=== PATIENT | male | born 1950 | race Caucasian/White ===

== ENCOUNTER 2023-10-19 11:39 | Emergency (ER) | payer OTHER, SELFPAY ==
[2023-10-19 11:47] VITALS: BP 127/95
[2023-10-19 11:54] LABS: Glucose - Point of Care > 600 mg/dl (70-99)
[2023-10-19 12:20] VITALS: BMI 28.1
[2023-10-19 12:21] VITALS: BP 189/50
[2023-10-19 12:30] LABS: pH - Venous 7.35 (7.32-7.43)
[2023-10-19 12:31] LABS: % Basophils 1.2 % (0-2); % Eosinophils 3.3 % (0-6); % Immature Granulocytes 0.3 % (0-0.5); % Lymphocytes 17.3 % (20.5-51.1); % Monocytes 7.6 % (1.7-9.3); % Neutrophils 70.3 % (42.2-75.2); Absolute Basophils 0.1 10^3/uL (0-0.2); Absolute Eosinophils 0.2 10^3/uL (0-0.7); Absolute Lymphocytes 1.2 10^3/uL (1.2-3.4); Absolute Monocytes 0.5 10^3/uL (0.1-0.6); Absolute Neutrophils 4.8 10^3/uL (1.4-6.5); Hematocrit 39.1 % (39.0-52.0); Hemoglobin 13.5 g/dL (13.0-18.0); Mean Corp Hgb Conc. 34.5 g/dL (33.0-37.0); Mean Corpuscular Hgb 29.6 pg (27.0-31.0); Mean Corpuscular Volume 85.7 fL (80.0-94.0); Mean Platelet Volume 12.6 fL (7.4-10.4); Nucleated Red Blood Cells % 0 % (-); Platelet Count 158 10^3/uL (130-400); Red Blood Cell Count 4.56 10^6/uL (4.70-6.10); Red Cell Dist. Width 12.5 % (11.5-14.5); White Blood Cell Count 6.8 10^3/uL (4.8-10.8)
[2023-10-19] MEDS: NSS 1000 IV (12:40)
[2023-10-19 13:00] VITALS: BP 186/67
[2023-10-19 13:29] LABS: ALT (SGPT) 22 U/L (0-50); AST (SGOT) 22 U/L (17-59); Alkaline Phosphatase 81 U/L (38-126); Blood Urea Nitrogen 28 mg/dl (9-20); Calcium 9.6 mg/dl (8.4-10.2); Carbon Dioxide 27 mmol/L (22-30); Chloride 98 mmol/L (98-107); Estimated Creatinine Clearance 71 ml/min; Potassium 5.3 mmol/L (3.5-5.1); Sodium 133 mmol/L (135-145); Total Bilirubin 0.8 mg/dl (0.2-1.3); Total Protein 6.6 g/dl (6.3-8.2); eGFR > 60.00
[2023-10-19 13:40] LABS: Glucose - Point of Care 580 mg/dl (70-99)
[2023-10-19 13:40] LABS: Glucose 678 mg/dl (70-99)
[2023-10-19 13:43] LABS: Urine Albumin Negative (Neg - Trace); Urine Bilirubin Negative (Negative); Urine Character Clear (Clear); Urine Color Yellow; Urine Glucose 3+ (Negative); Urine Ketone Negative (Negative); Urine Leukocyte Negative (Negative); Urine Nitrite Negative (Negative); Urine Occult Blood Negative (Negative); Urine Specific Gravity 1.005 (<1.030); Urine Urobilinogen Negative (Neg - 1+)
[2023-10-19] MEDS: NOVOLOG vial 15 UNITS SC (13:51)
[2023-10-19 14:00] VITALS: BP 199/64
[2023-10-19 14:21] LABS: Glucose 622 mg/dl (70-99)
--- NOTE | 2023-10-19 14:39 | EDRN ---
MM aware that glucose of 622 was drawn just prior to insulin admin
--- NOTE | 2023-10-19 14:52 | ED.GENMED ---
History of Present Illness
General
Chief Complaint: Blood Sugar Problem
Source: patient
Time Seen by Provider: 10/19/23 12:37
History of Present Illness
History of Present Illness:
73-year-old male with past medical history of hypertension, hyperlipidemia, CAD, insulin-dependent diabetes presenting to the emergency department for evaluation of significantly elevated blood sugars over the last few days due to his primary care
provider accidentally mixing up his insulin and patient ran out of the insulin prior to being able to get his new prescription. Patient endorses urinary frequency but is otherwise denying any abdominal pain, fevers, vomiting, bowel changes, recent
illnesses or any other concerns. Patient states he had blood work done not long ago and had an A1c checked but does not remember these results but when asked if he remembers if he was told it was good or bad patient states that they told him there
was 'room for improvement'. Patient states that he is on both short and long-acting insulin and that for some reason he had his Lantus changed which she was not sure why is he states he felt he was doing well with the Lantus. Patient has no other
concerns at this time.
Past History
Past History
ED Past Medical History: CAD, GERD, HTN, Hypercholesterolemia and IDDM
ED Past Surgical History: Cardiac (Cardiac stents)
Social History
Tobacco: Non-smoker
Alcohol: None
Drug: None
Personal: Single
Living: with family
Employment: Retired
Review of Systems
Review of Systems
All Other Systems: ROS reviewed and negative except as documented in HPI and ROS
Phy Exam
Physical Exam
Physical Exam:
GENERAL: Alert , in no apparent distress
EYE: conjunctiva clear
NECK: Supple
ENT: o/p clr, mmm.
CARDIAC: Regular rate and rhythm
LUNGS: Clear breath sounds bilaterally, no acute respiratory distress, no wheezes/rales/rhonchi
NEUROLOGICAL: Alert and oriented
SKIN: Warm and dry, skin intact.
MUSCULOSKELETAL: well perfused.
PSYCH: Normal and appropriate interaction.
Scores
Heart Failure Risk
Heart Failure Risk Score: Not Applicable
Heart Score for Chest Pain Patients
STEMI patient?: Not applicable
Withdrawal Assessment of Alcohol
Withdrawal Assessment Completed?: Not applicable
Course
Orders/Labs/Results
Orders:
Orders
10/19/23 12:18
CMP [Comprehensive Metabolic Panel] Urgent
Complete Blood Count/With Diff Urgent
pH - Venous Urgent
10/19/23 12:37
0.9% Sodium Chloride 1000 ml [Nss] 1,000 ml IV BOLUS
10/19/23 13:37
Urinalysis Reflex To Culture Urgent
Date Specimen was Collected: 10/19/23
Time Specimen was Collected: 13:36
10/19/23 13:43
Bedside Glucose- Treatment ONCE
Insulin Aspart [NOVOLOG vial] 15 units SC NOW STA
10/19/23 13:44
Glucose Urgent
10/19/23 15:09
Diabetes Education Consult Routine
Reason for Consult: Insulin Instruction
Newly Diagnosed?: No
Glucose Urgent
Abnormal Lab Results
10/19/23 10/19/23 10/19/23
11:52 12:18 13:37
RBC 4.56 L 10^6/uL
(4.70-6.10)
MPV 12.6 H fL
(7.4-10.4)
Lymphocytes % 17.3 L %
(20.5-51.1)
Sodium 133 L mmol/L
(135-145)
Potassium 5.3 H mmol/L
(3.5-5.1)
BUN 28 H mg/dl
(9-20)
Glucose 678 H* mg/dl
(70-99)
Urine Glucose 3+ A
(Negative)
POC Glucose > 600 H* mg/dl
(70-99)
10/19/23 10/19/23 10/19/23
13:39 13:44 14:52
RBC
MPV
Lymphocytes %
Sodium
Potassium
BUN
Glucose 622 H* mg/dl
(99)
Urine Glucose
POC Glucose 580 H* mg/dl 589 H* mg/dl
(99) (70-99)
10/19/23
15:09
RBC
MPV
Lymphocytes %
Sodium
Potassium
BUN
Glucose 414 H mg/dl
()
Urine Glucose
POC Glucose
10/19/23 12:18
10/19/23 15:09
Vital Signs
Initial and Last Documented VS:
Initial Vital Signs
Temp Pulse Resp BP Pulse Ox
98.0 F 59 16 127/95 98
10/19/23 11:47 10/19/23 11:47 10/19/23 11:47 10/19/23 11:47 10/19/23 11:47
Last Documented Vital Signs
Temp Pulse Resp BP Pulse Ox
98.0 F 59 16 199/64 99
10/19/23 11:47 10/19/23 11:47 10/19/23 11:47 10/19/23 14:00 10/19/23 16:00
Magnetic Testing Technician consulted with Physician
Magnetic Testing Technician consulted with physician?: Yes
Name of Physician Consulted: Lester
MDM/Problems Addressed
Differential Diagnosis Includes:
Hyperglycemia secondary to medication noncompliance, DKA, HHNK
MDM/Problems Addressed:
73-year-old male presenting emergency department for evaluation of hyperglycemia. Patient reports he believes this is due to his primary care provider mixing up his insulin prescriptions. Patient does report that his primary care provider was
supposedly working on this new prescription ensuring patient had his insulin at the pharmacy today. I will contact the pharmacy to ensure that patient has this medication available. In the meantime patient had a fingerstick glucose of greater than
600. Fluids were initiated. Once labs resulted will start patient on insulin. Reassessment following
Chronic conditions affecting care: DM
Acute Exacerbation and/or Progression of Chronic Illness: DM
*Pulse Oximetry
Patient hypoxic: no
*Critical Care Note
Total Time (30-74mins, 75-104mins- exclusive of procedures): Not Applicable
Data Reviewed
Review of Other/Old Records Reveals: Labs
Source: patient and records
Patient Management
Discussion with other providers: PCP and [facility] Maker
Escalation/DeEscalation of care consider admission/obs:
Patient's blood glucose came back at 678. He has already completed 2 L of fluids. Will repeat a fingerstick prior to ordering insulin.
Fingerstick glucose still came back reading 'high'. Based off insulin scale, 15 units of regular insulin ordered subcutaneously. Will repeat glucose around an hour after initial administration.
Patient's repeat glucose down trended to 414. He was seen by our diabetes educators and he declined nutrition consultation. I contacted his pharmacy who states they do not have Lantus in stock but they do have patients insulin needles ready for
him to be picked up. In consultation with our diabetes team we decided to increase patient's Lantus from 60 units once daily to 40 units twice daily and I was able to confirm with the [facility] on [facility] that they do have a full 1 month supply in
stock. Patient was notified of this change. I also notified patient's primary care provider of his workup in the emergency department in order to help facilitate close outpatient follow-up. Patient is otherwise stable for discharge.
ED Attending Note
-
Portions of this chart may have been created with voice recognition software.� Occasional wrong word or��sound alike� substitutions may have occurred due to the inherent limitations of voice recognition software.
Discharge Plan
Departure
Patient Disposition: Home (Routine Discharge)
Date of Disposition: 10/19/23
Time of Disposition: 15:53
Patient with high blood pressure during this ER visit?: Yes
Discharge Problem:
Diabetes mellitus with hyperglycemia, History of medication noncompliance
Instructions: Type 2 Diabetes (DC)
Prescriptions:
New
insulin glargine [Lantus Solostar U-100 Insulin] 100 unit/mL (3 mL) insulin pen
40 unit SC BID 30 Days Qty: 24 0RF
Referrals:
Mervin Ames MD [Family Provider] -
Interventions
Interventions:
*Risk Screen - Suicide Last Done: 10/19/23 12:20
*General Assessment Last Done: 10/19/23 16:14
*Neglect/Abuse Screening Last Done: 10/19/23 12:20
ED- Fall Risk Assessment Last Done: 10/19/23 13:16
*ED COVID-19 Vaccine History Last Done: 10/19/23 11:47
*Nursing Disposition Last Done: 10/19/23 16:14
ED- Neurological Assessment Last Done: 10/19/23 12:20
Discharge Date and Time
Discharge Date/Time: 10/19/23 16:15
Print Language: TONGAN
[2023-10-19 14:54] LABS: Glucose - Point of Care 589 mg/dl (70-99)
[2023-10-19 15:30] LABS: Glucose 414 mg/dl (70-99)
--- NOTE | 2023-10-19 15:52 | PN.DE ---
Diabetes Education
- -
10/19/2023: Diabetes Education Consult
73 year old male with PMH: HTN, HLD, CAD, IDDM. Presented to the ED for evaluation of significantly elevated blood sugars over the last few day due to apparently his PCP accidentally mixing up his insulin and patient ran out of the insulin prior to
being able to get his new prescription.
Consult placed for insulin instructions, however, pt reports that he has been taking insulin for a long time and that he is comfortable with self adm of insulin injections via pen. Pt states that his main problem is not knowing what foods to eat and
that he is exhausted with diabetes diet, although he states that he mainly eats hoagies, pizza, subs and taco schumacher.
DSME classes were offered and pt declined information at this time but was willing to receive information on class at home and will think about registering.
Update given to pt's ED team.
== END 2023-10-19 16:15 | disposition home or self-care (01) ==
LOC: EMR 11:39
PROVIDERS: Physician Assistant Medical; EMERGENCY PHYSICIAN Emergency Medicine; FAMILY PHYSICIAN Internal Medicine
DX: E11.65 Type 2 diabetes mellitus with hyperglycemia (principal); Z91.148 Patient's other noncompliance with medication regimen for other reason; I10 Essential (primary) hypertension; E78.00 Pure hypercholesterolemia, unspecified; I25.10 Atherosclerotic heart disease of native coronary artery without angina pectoris
CPT/HCPCS: 99284; 96360; 96372; 80053; 81003; 82800; 82947; 82962; 85025

== ENCOUNTER 2024-07-12 15:04 | Emergency (ER) | payer OTHER, SELFPAY ==
[2024-07-12 15:06] VITALS: BP 180/84
--- NOTE | 2024-07-12 15:42 | ED.SKININJ ---
HPI-Injury
General
Chief Complaint: Skin Surface Trauma
Source: patient
Exam Limitations: none
Time Seen by Provider: 07/12/24 15:20
Nursing documentation reviewed up to this point in time: agreed with
History of Present Illness-Injury
Is this injury a work related problem?: No
Is pt an associate of [facility]/[place]?: No
Initial Injury comments:
Accidentally cut finger on tin can lid. Has small laceration to right distal lateral 4th finger. 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
Past History
Past History
ED Past Medical History: CAD, GERD, HTN, Hypercholesterolemia and IDDM
ED Past Surgical History: Cardiac (Cardiac stents)
Social History
Tobacco: Non-smoker
Alcohol: None
Drug: None
Personal: Single
Living: with family
Employment: Retired
Review of Systems
Review of Systems
Allergies reviewed?: Yes
All Other Systems: ROS reviewed and negative except as documented in HPI and ROS
Constitutional: Reports no symptoms
Musculoskeletal: Reports no symptoms
Skin: Reports other (laceration to right distal lateral 4th finger)
Neurological: Reports no symptoms
Psychiatric: Reports no symptoms
Skin Exam
Laceration
Right Lateral Distal Fourth Finger:
Length in cm: 1
Orientation: vertical
Type of Laceration: simple
Any active bleeding?: no active bleeding
Distal skin color and temperature: normal-warm & good color
Normal distal neurovascular exam: Yes
Range of motion: full
Phy Exam
General Physical Exam
General Presentation: well appearing and no apparent distress
General age: appears stated age
General Skin: warm and dry
General Habitus: normal
General Mental: alert
Musculoskeletal Exam
Musculoskeletal Exam: full ROM
Skin Exam
Skin Exam: normal color, warm/dry and no rash
Psychiatric Exam
Psychiatric Exam: normal mood/affect
Course
Vital Signs
Initial and Last Documented VS:
Initial Vital Signs
Temp Pulse Resp BP Pulse Ox
98.5 F 79 20 180/84 98
07/12/24 15:06 07/12/24 15:06 07/12/24 15:06 07/12/24 15:06 07/12/24 15:06
Last Documented Vital Signs
Temp Pulse Resp BP Pulse Ox
98.5 F 79 20 180/84 98
07/12/24 15:06 07/12/24 15:06 07/12/24 15:06 07/12/24 15:06 07/12/24 15:06
Procedures
Laceration Closure
Lateral Distal Fourth Finger:
Status of Wound: clean
Description of Wound Edges: sharp
Preparation: cleaned with soap & water and cleaned with Betadine
Revision/Debridement: routine- no revision
Wound exploration: explored to base- no FB
Type of Closure: Dermabond-skin glue
*Critical Care Note
Total Time (30-74mins, 75-104mins- exclusive of procedures): Not Applicable
ED Attending Note
-
Portions of this chart may have been created with voice recognition software.� Occasional wrong word or��sound alike� substitutions may have occurred due to the inherent limitations of voice recognition software.
Discharge Plan
Departure
Patient Disposition: Home (Routine Discharge)
Date of Disposition: 07/12/24
Time of Disposition: 15:41
Patient with high blood pressure during this ER visit?: No
Condition: Good
Covid-19: Not Applicable
Discharge Problem:
Finger laceration
Instructions: Laceration Repair With Glue (DC)
Prescriptions:
No Action
insulin glargine [Lantus Solostar U-100 Insulin] 100 unit/mL (3 mL) insulin pen
40 unit SC BID 30 Days Qty: 24 0RF
Referrals:
Mervin Ames MD [Family Provider] -
Activity Restrictions/Additional Instructions:
Keep wound dry for 24 hours. Do not remove tape strips
Interventions
Interventions:
*Risk Screen - Suicide Last Done: 07/12/24 15:06
*General Assessment Last Done: 07/12/24 15:06
*Neglect/Abuse Screening Last Done: 07/12/24 15:06
Discharge Date and Time
Print Language: SPANISH
== END 2024-07-12 16:07 | disposition home or self-care (01) ==
LOC: EMR 15:04
PROVIDERS: EMERGENCY PHYSICIAN Emergency Medicine; FAMILY PHYSICIAN Internal Medicine
DX: S61.215A Laceration without foreign body of left ring finger without damage to nail, initial encounter (principal); W26.8XXA Contact with other sharp object(s), not elsewhere classified, initial encounter; I25.10 Atherosclerotic heart disease of native coronary artery without angina pectoris; E11.9 Type 2 diabetes mellitus without complications; I10 Essential (primary) hypertension; E78.00 Pure hypercholesterolemia, unspecified; Z79.4 Long term (current) use of insulin; Z95.5 Presence of coronary angioplasty implant and graft
CPT/HCPCS: 12001; 99282

== ENCOUNTER 2024-09-27 13:27 | Emergency (ER) | payer SELFPAY ==
[2024-09-27 13:32] VITALS: BP 154/63
[2024-09-27 14:18] LABS: % Basophils 0.6 % (0-2); % Eosinophils 1.4 % (0-6); % Immature Granulocytes 0.2 % (0-0.5); % Lymphocytes 16.9 % (20.5-51.1); % Monocytes 5.8 % (1.7-9.3); % Neutrophils 75.1 % (42.2-75.2); Absolute Basophils 0.1 10^3/uL (0-0.2); Absolute Eosinophils 0.1 10^3/uL (0-0.7); Absolute Lymphocytes 1.5 10^3/uL (1.2-3.4); Absolute Monocytes 0.5 10^3/uL (0.1-0.6); Absolute Neutrophils 6.7 10^3/uL (1.4-6.5); Hematocrit 40.6 % (39.0-52.0); Hemoglobin 14.3 g/dL (13.0-18.0); Mean Corp Hgb Conc. 35.2 g/dL (33.0-37.0); Mean Corpuscular Hgb 29.2 pg (27.0-31.0); Nucleated Red Blood Cells % 0 % (-); Platelet Count 252 10^3/uL (130-400); Red Blood Cell Count 4.89 10^6/uL (4.70-6.10); Red Cell Dist. Width 12.5 % (11.5-14.5)
[2024-09-27 14:22] LABS: INR 1.09; PT 14.4 Sec (11.4-14.6)
[2024-09-27 14:34] LABS: ALT (SGPT) 17 U/L (0-50); AST (SGOT) 18 U/L (17-59); Albumin 4.3 g/dl (3.5-5.0); Alkaline Phosphatase 88 U/L (38-126); Blood Urea Nitrogen 53 mg/dl (9-20); Calcium 9.9 mg/dl (8.4-10.2); Carbon Dioxide 22 mmol/L (22-30); Chloride 101 mmol/L (98-107); Potassium 5.9 mmol/L (3.5-5.1); Sodium 133 mmol/L (135-145); Total Bilirubin 0.6 mg/dl (0.2-1.3); Total Protein 7.2 g/dl (6.3-8.2); eGFR 45.21
[2024-09-27 14:56] LABS: Glucose 646 mg/dl (70-99)
[2024-09-27 16:08] VITALS: BP 170/72
--- NOTE | 2024-09-27 16:33 | ED.GENMED ---
History of Present Illness
General
Chief Complaint: Weakness
Source: patient
Exam Limitations: none
Time Seen by Provider: 09/27/24 15:59
Nursing documentation reviewed up to this point in time: agreed with
History of Present Illness
History of Present Illness:
Patient to ED with complaint of lower extremity weakness. States he has not had his insulin for the past month due to finances. He started taking his prescribed dose 3 days ago but then states he forgot to take his insulin and ozempic today.
States his legs gave out this AM and he fell. Denies hitting his head. Brought self to ED for eval. He denies fever/chills, recent illness. No n/v/d. Reports intermittent lower chest tightness over the past few weeks. Denies any SOB.
Past History
Past History
ED Past Medical History: CAD, GERD, HTN, Hypercholesterolemia and IDDM
ED Past Surgical History: Cardiac (Cardiac stents)
Social History
Tobacco: Non-smoker
Alcohol: None
Drug: None
Personal: Single
Living: with family
Employment: Retired
Review of Systems
Review of Systems
Allergies reviewed?: Yes
All Other Systems: ROS reviewed and negative except as documented in HPI and ROS
Constitutional: Reports no symptoms
EENT: Reports no symptoms
Respiratory: Reports no symptoms
Cardiac: Reports other (intermittent chest tightness)
ABD/GI: Reports no symptoms
: Reports no symptoms
Musculoskeletal: Reports no symptoms
Skin: Reports no symptoms
Neurological: Reports weakness
Psychiatric: Reports no symptoms
Phy Exam
General Physical Exam
General Presentation: well appearing and no apparent distress
General age: appears stated age
General Skin: warm and dry
General Habitus: normal
General Mental: alert
General Hydration: appears well hydrated
Cardiovascular Exam
Cardiovascular Exam: regular rate/rhythm and no edema
Pulmonary Exam
Pulmonary Exam: lungs clear and no respiratory distress
Gastrointestinal Exam
Gastrointestinal Exam: normal bowel sounds and non tender
Neurological Exam
Neurological Exam: alert, oriented x3, CN II-XII intact, no motor deficits, no sensory deficits and speech normal
Musculoskeletal Exam
Musculoskeletal Exam: full ROM and neuro vasc intact
Skin Exam
Skin Exam: normal color and no rash
Psychiatric Exam
Psychiatric Exam: normal mood/affect
Course
Orders/Labs/Results
Orders:
Orders
09/27/24 13:36
Electrocardiogram (*1) Urgent
Reason for Study: Other
Other Reason for Exam: Possible Stroke
EKG- Treatment ONCE
09/27/24 13:37
CT Head W/o Iv Contrast Urgent
Comment:
Reason For Exam: R leg numbness/weakness
09/27/24 13:58
Complete Blood Count/With Diff Urgent
Comprehensive Metabolic Panel Urgent
PTT Urgent
Prothrombin Time Urgent
Troponin I Urgent
09/27/24 16:31
0.9% Sodium Chloride 500 ml [Nss] 500 ml IV BOLUS
Insulin Aspart [NOVOLOG vial] 10 units SC NOW STA
09/27/24 19:02
Basic Metabolic Panel Urgent
Abnormal Lab Results
09/27/24 09/27/24
13:58 19:02
MPV 13.0 H fL
(7.4-10.4)
Absolute Neuts (auto) 6.7 H 10^3/uL
(1.4-6.5)
Lymphocytes % 16.9 L %
(20.5-51.1)
Sodium 133 L mmol/L
(135-145)
Potassium 5.9 H mmol/L
(3.5-5.1)
Chloride 108 H mmol/L
(98-107)
Carbon Dioxide 21 L mmol/L
(22-30)
BUN 53 H mg/dl 48 H mg/dl
(9-20) (9-20)
Creatinine 1.6 H mg/dL
(0.7-1.3)
Glucose 646 H* mg/dl 375 H mg/dl
(70-99) (70-99)
09/27/24 13:58
09/27/24 19:02
Vital Signs
Initial and Last Documented VS:
Initial Vital Signs
Temp Pulse Resp BP Pulse Ox
97.9 F 83 18 154/63 98
09/27/24 13:32 09/27/24 13:32 09/27/24 13:32 09/27/24 13:32 09/27/24 13:32
Last Documented Vital Signs
Temp Pulse Resp BP Pulse Ox
97.8 F 54 16 197/76 98
09/27/24 19:53 09/27/24 19:53 09/27/24 19:53 09/27/24 19:53 09/27/24 19:53
*Critical Care Note
Total Time (30-74mins, 75-104mins- exclusive of procedures): Not Applicable
Update Note
Update Note:
Patient to ED with complaint of weakness. States symptoms have been present for a while but could not be more specific. He also notes he had not taken his insulin for 'awhile' due to finances. Restarted his insulin 3 days ago but forgot to take
insulin today. Labs reviewed. BS of >600 noted. K 5.9. He was given 1L NSS and 10 units novolog. repeat labs show BS now mid 300''s and K is 4.8. I spoke with him about the need for admission but he declined. States now that he knows what is
wrong with him he will fix it. States he will follow up with PCP tomorrow. I have concerns that he will not follow up and that he is unreliable with his medications at home. I spoke with him about this but he continues to decline admission. He
was given instructions on s/s to return to [facility] as well as the importance of medication compliance. He verbalizes agreement to plan.
ED Attending Note
-
Portions of this chart may have been created with voice recognition software.� Occasional wrong word or��sound alike� substitutions may have occurred due to the inherent limitations of voice recognition software.
Discharge Plan
Departure
Patient Disposition: Home (Routine Discharge)
Date of Disposition: 09/27/24
Time of Disposition: 19:27
Patient with high blood pressure during this ER visit?: No
Condition: Good
Covid-19: Not Applicable
Discharge Problem:
Hyperglycemia, Weakness
Instructions: Generalized Weakness (DC), High blood sugar in adults - ED discharge instructions
Prescriptions:
No Action
insulin glargine [Lantus Solostar U-100 Insulin] 100 unit/mL (3 mL) insulin pen
40 unit SC BID 30 Days Qty: 24 0RF
Referrals:
Mervin Ames MD [Family Provider, Internal Medicine] - Tomorrow
Activity Restrictions/Additional Instructions:
Return to the emergency department immediately for any changes in your symptoms.
Interventions
Interventions:
*Risk Screen - Suicide Last Done: 09/27/24 13:32
*General Assessment Last Done: 09/27/24 13:32
*Neglect/Abuse Screening Last Done: 09/27/24 19:51
*ED- Fall Risk Assessment Last Done: 09/27/24 19:51
*ED COVID-19 Vaccine History Last Done: 09/27/24 19:51
*Nursing Disposition Last Done: 09/27/24 19:53
ED- Cardiac Assessment Last Done: 09/27/24 17:53
ED- Neurological Assessment Last Done: 09/27/24 17:53
ED- Pulmonary Assessment Last Done: 09/27/24 17:53
Discharge Date and Time
Discharge Date/Time: 09/27/24 19:54
Print Language: CAMBODIAN
[2024-09-27] MEDS: NOVOLOG vial 10 UNITS SC (16:43)
[2024-09-27] MEDS: NSS 500 IV (16:46)
[2024-09-27 17:12] VITALS: BP 140/77
[2024-09-27 18:00] VITALS: BP 162/61
[2024-09-27 19:00] VITALS: BP 197/76
[2024-09-27 19:24] LABS: Blood Urea Nitrogen 48 mg/dl (9-20); Calcium 9.5 mg/dl (8.4-10.2); Carbon Dioxide 21 mmol/L (22-30); Chloride 108 mmol/L (98-107); Glucose 375 mg/dl (70-99); Potassium 4.8 mmol/L (3.5-5.1); Sodium 137 mmol/L (135-145); eGFR 58.01
[2024-09-27 19:53] VITALS: BP 197/76
== END 2024-09-27 19:54 | disposition home or self-care (01) ==
LOC: EMR 13:27
PROVIDERS: Emergency Medicine; Nurse Practitioner; EMERGENCY PHYSICIAN Student in an Organized Health Care Education/Training Program; FAMILY PHYSICIAN Internal Medicine
DX: E11.65 Type 2 diabetes mellitus with hyperglycemia (principal); R53.1 Weakness; E78.00 Pure hypercholesterolemia, unspecified; I10 Essential (primary) hypertension; I25.10 Atherosclerotic heart disease of native coronary artery without angina pectoris; Z79.4 Long term (current) use of insulin; Z95.5 Presence of coronary angioplasty implant and graft
CPT/HCPCS: 96372; 96360; 99284; 70450; 80048; 80053; 84484; 85025; 85610; 85730; 93005

== ENCOUNTER 2024-10-03 07:45 | Inpatient (IN) | payer OTHER, SELFPAY ==
[2024-10-01 21:01] VITALS: BP 139/66
[2024-10-01 21:18] VITALS: BP 111/94
[2024-10-01 21:30] VITALS: BMI 27.4
[2024-10-01 21:38] LABS: Glucose - Point of Care 284 mg/dl (70-99)
[2024-10-01 21:41] LABS: % Basophils 0.6 % (0-2); % Eosinophils 0.8 % (0-6); % Immature Granulocytes 0.3 % (0-0.5); % Lymphocytes 15.9 % (20.5-51.1); % Monocytes 6.8 % (1.7-9.3); % Neutrophils 75.6 % (42.2-75.2); Absolute Basophils 0.1 10^3/uL (0-0.2); Absolute Eosinophils 0.1 10^3/uL (0-0.7); Absolute Lymphocytes 1.8 10^3/uL (1.2-3.4); Absolute Monocytes 0.8 10^3/uL (0.1-0.6); Absolute Neutrophils 8.6 10^3/uL (1.4-6.5); Hematocrit 38.4 % (39.0-52.0); Hemoglobin 13.4 g/dL (13.0-18.0); Mean Corp Hgb Conc. 34.9 g/dL (33.0-37.0); Mean Corpuscular Hgb 29.8 pg (27.0-31.0); Mean Corpuscular Volume 85.3 fL (80.0-94.0); Mean Platelet Volume 12.9 fL (7.4-10.4); Nucleated Red Blood Cells % 0 % (-); Platelet Count 218 10^3/uL (130-400); Red Cell Dist. Width 12.6 % (11.5-14.5); White Blood Cell Count 11.4 10^3/uL (4.8-10.8)
[2024-10-01 21:55] LABS: APTT 24.3 Sec (23.4-35.0); INR 1.18; PT 15.3 Sec (11.4-14.6)
[2024-10-01 21:57] LABS: Blood Urea Nitrogen 32 mg/dl (9-20); Calcium 9.4 mg/dl (8.4-10.2); Carbon Dioxide 23 mmol/L (22-30); Chloride 108 mmol/L (98-107); Estimated Creatinine Clearance 47 ml/min; Glucose 274 mg/dl (70-99); Sodium 137 mmol/L (135-145); eGFR 48.85
[2024-10-01 22:00] VITALS: BP 125/56
--- NOTE | 2024-10-01 22:26 | ED.GENMED ---
History of Present Illness
General
Chief Complaint: Weakness
Source: patient
Exam Limitations: none
Time Seen by Provider: 10/01/24 21:57
Nursing documentation reviewed up to this point in time: agreed with
History of Present Illness
History of Present Illness:
Patient is a 74-year-old male with history of CAD ,stents (2012) ,hypertension hyperlipidemia presents to the ER for evaluation. Patient does not feel like himself today. He reports he had intermittent numbness of his arms and legs both sides and
then was having difficulty remembering things and felt little unsteady on his feet.
In review of records patient was seen here 4 days ago for hyperglycemia. It was documented that patient had not taken his insulin for a while however did restart it but presented here with a sugar greater than 600. He does report that he is since
taking his medicines as previously prescribed.
Past History
Past History
ED Past Medical History: CAD, GERD, HTN, Hypercholesterolemia and IDDM
ED Past Surgical History: Cardiac (Cardiac stents)
Social History
Tobacco: Non-smoker
Alcohol: None
Drug: None
Personal: Single
Living: with family
Employment: Retired
Review of Systems
Review of Systems
Allergies reviewed?: Yes
All Other Systems: ROS reviewed and negative except as documented in HPI and ROS
Constitutional: Reports no symptoms
EENT: Reports no symptoms
Respiratory: Reports no symptoms
: Reports no symptoms
Musculoskeletal: Reports no symptoms
Skin: Reports no symptoms
Neurological: Reports other (numbness to arms/legs, difficulty walking having balance issues )
Psychiatric: Reports no symptoms
Phy Exam
General Physical Exam
General Presentation: no apparent distress
General age: appears stated age
General Skin: warm and dry
General Habitus: normal
General Mental: alert
General Hydration: appears well hydrated
Cardiovascular Exam
Cardiovascular Exam: regular rate/rhythm, no murmur and normal peripheral pulses
Pulmonary Exam
Pulmonary Exam: lungs clear
Neurological Exam
Neurological Exam: alert, oriented x3 and other (No focal motor deficits however patient's gait is off slow and seems little less steady)
Cerebellar
Cerebellar Function: normal finger to nose
Musculoskeletal Exam
Musculoskeletal Exam: full ROM
Skin Exam
Skin Exam: normal color and warm/dry
Psychiatric Exam
Psychiatric Exam: normal mood/affect
Course
Orders/Labs/Results
Orders:
Orders
10/01/24 21:09
EKG [Electrocardiogram (*1)] Urgent
Reason for Study: Fatigue / Weakness
10/01/24 21:10
EKG- Treatment ONCE
10/01/24 21:22
Basic Metabolic Panel Urgent
Complete Blood Count/With Diff Urgent
10/01/24 21:34
IV Insert/Care/Rem.- Treatment PRN
10/01/24 21:38
PTT Urgent
Prothrombin Time Urgent
Troponin I Urgent
10/01/24 22:37
CT Head W/o Iv Contrast Urgent
Comment:
Reason For Exam: change in MS
10/01/24 22:48
0.9% Sodium Chloride 1000 ml [Nss] 1,000 ml IV BOLUS
10/01/24 22:57
Potassium Urgent
10/02/24 00:33
CT Head & Neck Angio W/wo IV Urgent
Comment:
Reason For Exam: possible stroke
10/02/24 00:35
CT Brain Perfusion Urgent
Comment:
Reason For Exam: stroke
10/02/24 00:37
Aspirin Chewable [Low Strength Aspirin] 324 mg PO NOW STA
10/02/24 01:00
Flush (0.9% Sodium Chloride) [Flush (Nss)] See Dose Instructions IV PER PROTOCOL
10/02/24 01:57
Admit/Transfer Patient As Directed
Co-Sign Provider:
Level of Care: Observation services
Assign to:: Telemetry
Physician / Group: Crystal
Diagnosis: CVA
Reason for Telemetry: CVA/TIA
Date to Stop Telemetry: 10/05/24
Time to Stop Telemetry: 11:00
Reason for Hospitalization: CVA
PRN Pain Medication Management As Directed
May give lesser potent ordered pain med per pt: Yes
preference::
Protocol:: Medication orders for pain may be administered in a
manner that supports deferring to patient preference
when the pt is:
- Requesting an ordered lesser potent pain medication.
Least to most potent pain medications are defined
as: acetaminophen < NSAID < tramadol < opioids
(morphine, oxycodone, hydromorphone).
- Requesting a lesser dose of the same medication IF
ORDERED.
- Requesting a less intrusive route of administration
if both routes are prescribed by the provider (PO <
IV).
10/02/24 01:58
Code Status As Directed
Resuscitation Status: Full Code
10/02/24 03:24
Acetaminophen [Tylenol/Feverall] 650 mg RECTAL Q4HPRN PRN
Acetaminophen [Tylenol] 650 mg PO Q4HPRN PRN
HydrALAZINE [Apresoline] 10 mg IV Q4HPRN PRN
10/02/24 03:24
Echo 2D MMode Color/Doppler Routine
Reason for Study: stroke/TIA
Case Management Consult ONCE
Case Management Consult: Discharge Planning
Comment: stroke/tia
DIETARY IP CONSULT Routine
Reason for Consult: stroke/TIA
NEUROLOGY CONSULT Urgent
Consulting Provider: Orion Payne
Was physician already notified: Yes
Assistant Nurse Manager Urgent
MR Brain Without Contrast Routine
Comment:
Reason For Exam: stroke/TIA
Recent pill cam endoscopy?: No
Activity As Directed
Activity Level: With Assistance
Bedside Glucose Monitoring As Directed
Frequency: AC&HS
NIH Stroke Scale As Directed
Directions: Per protocol
Comment: every shift and with any change in condition or mental status
Neurological Checks As Directed
Frequency: q4h
Additional Instructions:: q4h x 24h upon admission to the floor, then qshift & with any change in condition
and mental status
Patient Education As Directed
Type: Stroke education packet
Comment: provide to patient and family
Pneumatic Compression Sleeves As Directed
Type: Knee high
Swallow Screening CVA/TIA ONLY As Directed
Comment: NPO until swallowing screening completed
If patient FAILS swallow screening:: NPO, Speech Therapy consult, Aspiration Precautions
If patient PASSES swallow screening, diet:: 1800 maine/ 15 CHO Diabetic
Above diet order entered?: Yes- passed screening
Vital Signs As Directed
Frequency: Per unit guidelines
Ot Eval And Treat Routine
Pt Eval And Treat Routine
Activity Level: With Assistance
Speech Therapy Eval & Treat Routine
DX Deep Vein Thrombosis Video Routine
10/02/24 05:06
Basic Metabolic Panel IN AM
Cardiovascular Evaluation IN AM
Complete Blood Count/No Diff IN AM
Glycohemoglobin (HgbA1c) IN AM
10/02/24 07:30
Insulin Aspart Corrective Low [Novolog Flexpen-Low Resistance] See Protocol SC AC
Insulin Aspart Pen [Novolog Flexpen] 8 units SC AC
10/02/24 08:00
Aspirin Chewable [Low Strength Aspirin] 81 mg PO DAILY
Lisinopril [Zestril] 20 mg PO DAILY
10/02/24 18:00
Atorvastatin [Lipitor] 80 mg PO QPM
Enoxaparin Sodium [Lovenox] 40 mg SC QPM
10/02/24 22:00
Insulin Glargine Lantus [Lantus] 30 units Subcutaneous Insulin Syringe [Syringe-Insulin] 0 unit SC HS
10/05/24 11:00
DC Protocol for Telemetry ONCE
Abnormal Lab Results
10/01/24 10/01/24 10/01/24
21:22 21:36 21:38
WBC 11.4 H 10^3/uL
(4.8-10.8)
RBC 4.50 L 10^6/uL
(4.70-6.10)
Hct 38.4 L %
(39.0-52.0)
MPV 12.9 H fL
(7.4-10.4)
Absolute Neuts (auto) 8.6 H 10^3/uL
(1.4-6.5)
Absolute Monos (auto) 0.8 H 10^3/uL
(0.1-0.6)
Neutrophils % 75.6 H %
(42.2-75.2)
Lymphocytes % 15.9 L %
(20.5-51.1)
PT 15.3 H Sec
(11.4-14.6)
Chloride 108 H mmol/L
(98-107)
BUN 32 H mg/dl
(9-20)
Creatinine 1.5 H mg/dL
(0.7-1.3)
Glucose 274 H mg/dl
(70-99)
POC Glucose 284 H mg/dl
(70-99)
10/01/24 21:22
10/01/24 22:57
Vital Signs
Initial and Last Documented VS:
Initial Vital Signs
Temp Pulse Resp BP Pulse Ox
98.4 F 70 16 139/66 98
10/01/24 21:01 10/01/24 21:01 10/01/24 21:01 10/01/24 21:01 10/01/24 21:01
Last Documented Vital Signs
Temp Pulse Resp BP Pulse Ox
97.6 F 53 16 141/69 99
10/02/24 15:09 10/02/24 15:09 10/02/24 15:09 10/02/24 15:10/02/24 16:30
MDM/Problems Addressed
Differential Diagnosis Includes:
Not limited to stroke, infection
MDM/Problems Addressed:
As documented patient is a 74-year-old male who presents to the ER for evaluation. He is a poor historian but feels off today has difficulty remembering things felt intermittent numbness and tingling of his upper lower extremities. He also felt
little unsteady when he was walking. Patient presents here awake alert he was confused for the nurses on her exam however when I saw him he was aware that he was confused previously today. He had no focal weakness. When I stood him up to ambulate
he seemed a little off with his balance and gait. Patient denies any recent fever chills he is afebrile white count minimally elevated denies any recent cough fever chills. Patient's BUN is 32 his creatinine is 1.5.; Patient was seen September 27 with
also similar creatinine however last labs are from 2023 and creatinine was 1.0. No complaints of chest pain. No acute findings on EKG. Troponin 0.020.
CAT scan shows focal cortical density in the left parieto-occipital lobe series possible evolving stroke
patient will require admission for confusion/ balance issues concern for stroke
Case reviewed with neurology who does recommend CTA head and neck angio and also CT perfusion which I did order. Will hold off on aspirin as per neurology
Chronic conditions affecting care:
CAD, stents diabetes
*Radiology
Radiology exam reviewed: radiology read reviewed
*Pulse Oximetry
Patient hypoxic: no
*EKG
Interpreted by ED Provider?: Yes
Heart Rate: 67
Rate: normal
Rhythm: sinus
Ischemia: non-specific ST changes
*Critical Care Note
Total Time (30-74mins, 75-104mins- exclusive of procedures): Not Applicable
Patient Management
Discussion with other providers: Steam Tunnel Feeder (DR Payne )
ED Attending Note
-
Portions of this chart may have been created with voice recognition software.� Occasional wrong word or��sound alike� substitutions may have occurred due to the inherent limitations of voice recognition software.
Discharge Plan
Departure
Patient Disposition: Admit
Date of Disposition: 10/02/24
Time of Disposition: 00:32
Admit to: Telemetry
Admit to doctor: hospitalist
Presentation/result/management discussed w/ accepting MD/DO: Hospitalist
Patient with high blood pressure during this ER visit?: Yes
Condition: Fair
Covid-19: Not Applicable
Discharge Problem:
cva
Interventions
Interventions:
*Risk Screen - Suicide Last Done: 10/01/24 21:01
*General Assessment Last Done: 10/01/24 21:01
*Neglect/Abuse Screening Last Done: 10/01/24 21:01
*ED- Fall Risk Assessment Last Done: 10/01/24 21:01
*ED COVID-19 Vaccine History Last Done: 10/01/24 21:01
*Nursing Disposition Last Done: 10/02/24 03:26
ED- Cardiac Assessment Last Done: 10/01/24 21:30
ED- Neurological Assessment Last Done: 10/01/24 21:30
ED- Pulmonary Assessment Last Done: 10/01/24 21:30
Discharge Date and Time
Discharge Date/Time: 10/02/24 03:27
[2024-10-01] MEDS: NSS 1000 IV (22:58)
[2024-10-01 23:00] VITALS: BP 174/72
[2024-10-01 23:17] LABS: Potassium 4.4 mmol/L (3.5-5.1)
--- NOTE | 2024-10-01 23:30 | EDRN ---
JORGE ALBERTO Piedra and this RN attempted to walk patient into the restroom, patient was wobbly on his feet and not walking fully normal, patient could not urinate and then was assisted back to bed and resting comfortably.
[2024-10-02] VITALS (11 sets, daily range): BP systolic 141–213; BP diastolic 55–119; PULSE 59–60; O2SAT 98–99; BMI 27.6
[2024-10-02] MEDS: LOW STRENGTH ASPIRIN 324 MG PO (01:24)
[2024-10-02] MEDS: FLUSH (NSS) 1 FLUSH IV (01:25)
--- NOTE | 2024-10-02 01:33 | HPS.HSE ---
Family Physician
-
Family Physician: Mervin Ames
Chief Complaint
-
Weakness
History of Present Illness
This is a 71-year-old with past medical history significant for CAD status post stents, insulin-dependent diabetes, hypertension who presented to the emergency department with confusion on and unsteadiness as well as mild peripheral hallucinations.
Patient says he does not feel his usual self but unable to describe symptoms. He states he sometimes has numbness that seems to be migrating around the upper and lower extremities. Was seen in the emergency department 4 days ago for elevated blood
sugar and a fall. Today he felt more unsteady walking and confused. Patient is aware of the confusion and states his balance is off but there is no deficit in his strength. He had a CT few days ago which was negative.
In the emergency department today he was afebrile, blood pressure 174/70 with a pulse of 57 and was satting 98% on room air.
ECG shows normal sinus rhythm and no acute ST or T wave changes.
CBC was unremarkable. Electrolytes BUN/creatinine were in the normal range. His troponin was negative.
He had a CT of the head showing focal cortical density in the left. 2 occipital lobe is more apparent possibly affecting evolving stroke. No hemorrhage or midline shift.
Medical History
Past Medical History
Past Medical History: Reports Other
Additional Past Medical History:
Hypertension
Hyperlipidemia
CAD status post stenting of OM1 and OM 3
Insulin-dependent diabetes
Carotid stenosis
Past Surgical History: Reports Other
Additional Past Surgical History:
Cataract surgery
Social History
Tobacco: Non-smoker
Alcohol: None
Drug: None
Personal: Single
Family History
Family History: Not pertinent
Allergies / Home Medications
Allergies reflects when Allergies were last updated in [facility].
Home Medications with original date entered in [facility]
Allergy/Medication List:
Allergies
Allergy/AdvReac Type Severity Reaction Status Date / Time
No Known Allergies Allergy Verified 10/01/24 21:01
Home Medications
insulin glargine 100 unit/mL (3 mL) subcutaneous pen (Lantus Solostar U-100 Insulin) 40 unit (0.4 mL) SC BID 1 month #24 mL 10/19/23
Aspirin 81 mg tablets, 81 mg p.o. daily
Tamsulosin 0.4 mg capsule, 0.5 mg p.o. daily
Lisinopril 20 mg tablet, 20 mg p.o. daily
Atorvastatin 80 mg tablet, 80 mg p.o. daily
Metformin 500 mg tablet, 500 mg p.o. daily
Gabapentin 300 mg tablet, 200 mg p.o. 3 times daily
Review of Systems
-
History Source: Patient
Constitutional: Reports No Symptoms
EENT: Reports No Symptoms
Respiratory: Reports No Symptoms
Cardiac: Reports No Symptoms
Abdomen/GI: Reports No Symptoms
: Reports No Symptoms
Musculoskeletal: Reports No Symptoms
Skin: Reports No Symptoms
Neurological: Reports Weakness
Endocrine: Reports No Symptoms
Hematologic/Lymphatic: Reports No Symptoms
Psych: Reports Audio or Visual Hallucinations
Physical Exam
Vital Signs
Vital Signs
Temp Pulse Resp BP Pulse Ox
98.4 F 57 11 174/72 99
10/01/24 21:01 10/02/24 00:15 10/02/24 00:15 10/01/24 23:00 10/02/24 00:15
Physical Exam
General: Well Developed, Well Nourished and No Apparent Distress
HEENT: NormoCephalic, Moist mucous membranes and Atraumatic
Respiratory: Clear
Cardiac: S1/S2 and Regular Rhythm; No Murmur or Rub
GI: Soft, Non Tender, Non Distended and Normal Bowel Sounds; No Organomegaly
Rectal: Deferred by Provider
Musculoskeletal: No Clubbing, No Cyanosis and No Edema
Skin: No Rash
Neuro: Nonfocal/grossly intact
Laboratory Results
-
10/01/24 21:22
10/01/24 22:57
Laboratory Results
PT 15.3 Sec (11.4-14.6) H 10/01/24 21:38
INR 1.18 10/01/24 21:38
APTT 24.3 Sec (23.4-35.0) 10/01/24 21:38
Total Bilirubin Cancelled 10/01/24 21:22
AST Cancelled 10/01/24 21:22
ALT Cancelled 10/01/24 21:22
Alkaline Phosphatase Cancelled 10/01/24 21:22
Troponin I 0.020 ng/ml 10/01/24 21:38
Data Reviewed
-
CT Scan: Report Reviewed by me
Medical Tests (Nuc Med, Echo, EKG etc): Image Personally Visualized and interpreted
Lab Data: Labs Reviewed by me
Old Records: Reviewed
Impression/Plan
-
IMPRESSION:
74 y.o with history of IDDM, HTN, CAD s/p stenting, carotid stenosis presenting to ED with about 4 days of feeling off-balance. Initial CT 4 days ago was negative. Today he has a left parieto-occipital density concerning for evolving stroke. No
hemorrhage or midline shift. NIHSS currently = 0. CT perfusion study was limited as they didn't capture the location of the stroke but no acute stroke reported. CTA has a high grade stenosis a a small parietal branch on the left compatible with
the stroke. Additional stenosis noted in R vertebral occlusion and 75% stenosis of L ICA at bulb. No aneurysm, dissection and no bleeding.
PLAN:
1. CVA - Left parieto-occipital stroke. NIHSS = 0. High grade stenosis in a feeding branch. Multiple atherosclerotic lesions.
- admit to telemetry obs
- aspirin 324 x 1 given, continue 81 daily
- consider plavix if limited bleeding risk, awaiting neuro recommendations
- continue atorvastatin 80mg
- given that stroke appears evolving but onset > 24 hours, will have permissive hypertension overnight
- restart lisinopril in am with prn hydralazin
- mri brain in am, echo
- vascular consult per neuro
- neurology consult
2. DM II - take lantus 40-50 hs at home with novolog 15 tidac
- sliding scale insulin
-lispro 10 tidac
- lantus 30 hs
- a1c in am
- hold metformin
3. CAD
- aspirin/statin as above
4. HTN
- as stated above
DVT PPX - lovenox sq
code status - full code
--- NOTE | 2024-10-02 01:42 | EDRN ---
Dr. Dickey at bedside working on admission
[2024-10-02 07:04] LABS: Hematocrit 37.6 % (39.0-52.0); Hemoglobin 12.8 g/dL (13.0-18.0); Mean Corpuscular Hgb 29.7 pg (27.0-31.0); Mean Corpuscular Volume 87.2 fL (80.0-94.0); Mean Platelet Volume 13.2 fL (7.4-10.4); Platelet Count 191 10^3/uL (130-400); Red Blood Cell Count 4.31 10^6/uL (4.70-6.10); Red Cell Dist. Width 12.8 % (11.5-14.5); White Blood Cell Count 8.5 10^3/uL (4.8-10.8)
[2024-10-02 07:06] LABS: Blood Urea Nitrogen 32 mg/dl (9-20); Calcium 8.9 mg/dl (8.4-10.2); Carbon Dioxide 24 mmol/L (22-30); Chloride 112 mmol/L (98-107); Estimated Creatinine Clearance 58 ml/min; Glucose 60 mg/dl (70-99); HDL Cholesterol 33 mg/dl; LDL Cholesterol, Calculated 152 mg/dl; Potassium 4.3 mmol/L (3.5-5.1); Sodium 141 mmol/L (135-145); Total Cholesterol 210 mg/dl (50-199); Triglyceride 126 mg/dl (10-149); Very Low Density Lipoprotein 25 mg/dl (0-30); eGFR > 60.00
[2024-10-02 07:54] LABS: Glucose - Point of Care 94 mg/dl (70-99)
--- NOTE | 2024-10-02 07:59 | CON.NEURO ---
Neuro Assessment/Plan
Assessment
Head CT imgs rev'd, small left occipital hypodensity, MCA territory, wedge shaped with cortical involvement
CTA head/neck agree L carotid bulb 75%, occlusion of a small L parietal branch
CT perfusion imgs rev'd, the area of interest was not covered; no need to repeat as patient no deficits, this vessel not amenable to thrombectomy
74 year old man with acute stroke left occipital seen on CT scan, not seen on head CT 09/27. no deficits.
due to symptomatic Left carotid bulb 75%, vascular surgery consulted
stroke secondary prevention would be ASA 81, Lipitor 40
will forgo Plavix given cortex more likely to bleed
check brain MRI but doubt it will pack changer
Consultation
Order
Date of Consultation: 10/02/24
Requesting Provider: Abimael Rojas
Reason for Consult: Stroke
Subjective/Objective
Subjective Data
Date of Service: October 02, 2024
from ED notes:
Patient is a 74-year-old male with history of CAD ,stents (2013) ,hypertension hyperlipidemia presents to the ER for evaluation. Patient does not feel like himself today. He reports he had intermittent numbness of his arms and legs both sides and
then was having difficulty remembering things and felt little unsteady on his feet.
In review of records patient was seen here 4 days ago for hyperglycemia. It was documented that patient had not taken his insulin for a while however did restart it but presented here with a sugar greater than 600. He does report that he is since
taking his medicines as previously prescribed.
I spoke with Dorothea Dan over TT ~1:[address] showing hypodensity left occipital, recommended CTA/perfusion which showed a distal LMCA branch occlusion and left carotid 75% stenosis; perfusion scan did not cover the area of interest
this morning patient reports the weakness he was having yesterday is now resolved
I spoke to patient regarding his left carotid, and he reports in 2013 having some sort of carotid intervention through his wrist, though notes say he had cardiac stents in 2012?
Objective Data
Vital Signs
Temp Pulse Resp BP Pulse Ox
36.4 C 50 16 150/63 98
10/02/24 07:34 10/02/24 07:34 10/02/24 07:34 10/02/24 07:34 10/02/24 07:34
Lab Results
10/02/24 05:06
10/02/24 05:06
PT 15.3 Sec (11.4-14.6) H 10/01/24 21:38
INR 1.18 10/01/24 21:38
APTT 24.3 Sec (23.4-35.0) 10/01/24 21:38
Sodium 141 mmol/L (135-145) 10/02/24 05:06
Potassium 4.3 mmol/L (3.5-5.1) 10/02/24 05:06
BUN 32 mg/dl (9-20) H 10/02/24 05:06
Glucose 60 mg/dl (70-99) L 10/02/24 05:06
Calcium 8.9 mg/dl (8.4-10.2) 10/02/24 05:06
LDL Cholesterol, Calc 152 mg/dl 10/02/24 05:06
Patient Allergies
No Known Allergies Allergy (Verified 10/01/24 21:01)
Physical Exam
-
AAOx3, speech clear, language intact
blurry OD, VFF, EOMI, face symmetric
full strength b/l UE/LE
sensation intact to touch/pin
FNF intact
Medications
-
Active Medications
Generic Name Dose Route Start Last Admin
Trade Name Freq PRN Reason Stop Dose Admin
Acetaminophen 650 mg 10/02/24 03:24
Acetaminophen 650 Mg Rectal Suppository RECTAL 10/30/24 03:23
Q4HPRN PRN
IRIZARRY, mild pain, or temp >100.4F
Acetaminophen 650 mg 10/02/24 03:24
Acetaminophen 325 Mg Tablet PO 10/30/24 03:23
Q4HPRN PRN
IRIZARRY, mild pain, or temp >100.4F
Aspirin 81 mg 10/02/24 08:00
Aspirin 81 Mg Chewable Tablet PO 10/30/24 07:59
DAILY NEFTALI
Atorvastatin Calcium 80 mg 10/02/24 18:00
Atorvastatin (Lipitor) 80 Mg Tablet PO 10/30/24 17:59
QPM NEFTALI
Dextrose 12.5 grams 10/02/24 04:00
Dextrose 50% (0.5 Grams/Ml) 50 Ml Syringe IV 10/30/24 03:59
[id number] PRN
hypoglycemia
Protocol
Enoxaparin Sodium 40 mg 10/02/24 18:00
Enoxaparin Sodium 40 Mg/0.4 Ml Syringe SC 10/30/24 17:59
QPM NEFTALI
Glucagon 1 mg 10/02/24 04:00
Glucagon 1 Mg Vial IM 10/30/24 03:59
PRN PRN
hypoglycemia - no IV access
Protocol
Hydralazine HCl 10 mg 10/02/24 03:24
Hydralazine 20 Mg/Ml Vial IV 10/30/24 03:23
Q4HPRN PRN
SBP > 180
Insulin Glargine 30 units/ 0.3 mls @ 0 mls/hr 10/02/24 22:00
Device SC 10/30/24 21:59
HS NEFTALI
As Directed
Insulin Aspart 0 units 10/02/24 07:30
Insulin Aspart Low Resistance 300 Units/3 Ml Pen.Injctr SC 10/30/24 07:29
AC NEFTALI
Protocol
Insulin Aspart 8 units 10/02/24 07:30
Insulin Aspart (Novolog) 100 Units/Ml 3 Ml Flexpen SC 10/30/24 07:29
AC NEFTALI
Lisinopril 20 mg 10/02/24 08:00
Lisinopril 20 Mg Tablet PO 10/30/24 07:59
DAILY NEFTALI
Sodium Chloride 0 flush 10/02/24 01:00 10/02/24 01:25
Sodium Chloride 0.9% (Flush) Syringe IV 10/30/24 00:59 1 flush
PER PROTOCOL NEFTALI Administration
Home Medications
�Medication �Instructions �Recorded
insulin glargine 100 unit/mL (3 40 unit (0.4 mL) SC BID 1 month 10/19/23
mL) subcutaneous pen (Lantus #24 mL
Solostar U-100 Insulin)
[2024-10-02] MEDS: NOVOLOG FLEXPEN-LOW RESISTANCE SC ×3 (08:20→16:57)
[2024-10-02] MEDS: NOVOLOG FLEXPEN 8 UNITS SC ×3 (08:20→17:25)
[2024-10-02] MEDS: LOW STRENGTH ASPIRIN 81 MG PO (08:21)
[2024-10-02] MEDS: ZESTRIL 20 MG PO (08:21)
--- NOTE | 2024-10-02 09:19 | PTOTSP ---
Speech Pathology
Clinical Swallow Evaluation
74M with admission for left ponteo-occipital CVA presents with a functional oropharyngeal swallow. No overt s/s of aspiration demonstrated on all trials this date. Cannot r/o silent aspiration at bedside.
Pt remains at an increased risk for dysphagia given new CVA.
[employer] service to follow up to assess diet level tolerance and assess cognitive communication as able in light of new CVA.
Recommend:
1. Continue with regular textures (IDDSI 7), thin liquids (IDDSI 0)
2. Meds whole with thin liquid wash
3. General Aspiration Precautions
4. SILVERWARE CLEANER service to follow up re: to assess diet level tolerance and assess cognitive communication as able in light of new CVA.
[2024-10-02 09:51] LABS: Glycohemoglobin (HgbA1c) 12.3 % (4.0-5.6)
--- NOTE | 2024-10-02 10:55 | CON.VAS ---
Medical History
-
Chief Complaint: Transient Left sided weakness
History of Present Illness:
This is a 74M who presents with not feeling himself for 1 day. When questioned about this, he states he has had weakness in the right arm and leg for ~1 hour with speech/understanding issues. Hx of HTN, HLD, DM. Neuro deficits have now resolved. CTA
reviewed by me shows bilateral carotid stenosis with high grade L ICA stenosis.
Past Medical History
Past Medical History: CAD, HTN and Hypercholesterolemia
Social History
Tobacco: Former Smoker
Family History
Family History: Reviewed & Not Pertinent
Allergies / Home Medications
Allergy/AdvReac Type Severity Reaction Status Date / Time
No Known Allergies Allergy Verified 10/01/24 21:01
�Medication �Instructions �Recorded �Confirmed �Type
insulin glargine 100 unit/mL (3 40 unit (0.4 mL) SC BID 1 month 10/19/23 Rx
mL) subcutaneous pen (Lantus #24 mL
Solostar U-100 Insulin)
Physical Exam
Vital Signs
Temp Pulse Resp BP Pulse Ox
97.6 F 50 16 150/63 98
10/02/24 07:34 10/02/24 08:21 10/02/24 07:34 10/02/24 08:21 10/02/24 08:19
Lab Results
10/02/24 05:06
10/02/24 05:06
Troponin I 0.020 ng/ml 10/01/24 21:38
Physical Exam
General: Well Developed and No Apparent Distress
HEENT: Normocephalic
Respiratory: Clear
Cardiac: S1/S2
GI: Soft
Skin: Warm
Neuro: Awake, AO x 3 and No Motor Deficits
Psych: Calm
Pulses: Left Femoral: +2 and Right Femoral: +2
Assessment / Plan
-
74M with symptomatic L ICA stenosis
-will need L CEA this admission or within two weeks
-recommend secondary stroke prevention with high intensity statin and ASA 81
-please consult cardiology for surgical risk stratification
-discussed with neuro and primary team
Data Reviewed
-
CT Scan: Image Personally Visualized and interpreted
Medical Tests (Nuc Med, Echo etc): Image Personally Visualized and interpreted
Labs: Labs Reviewed by me
--- NOTE | 2024-10-02 11:06 | W.PN.UPDATE ---
Update Note
Progress Note Update
Seen and examined.
Discussed with neurology vascular surgery. Plan for OR this week for asymptomatic left carotid artery stenosis
Continue high intensity statin aspirin 81
Cardiology consulted
[2024-10-02 12:23] LABS: Glucose - Point of Care 136 mg/dl (70-99)
--- NOTE | 2024-10-02 14:19 | CON.CAR ---
Consultation
Consultation Request
Date/Time Consultation Requested: 10/02/2024
Date/Time Consultation Performed: 10/02/2024
Requesting Provider: Dr. Dumont
Performing Provider: Dr. Cardenas
Reason for Consultation: Preprocedural Cardiac Evaluation
Medical History
-
Chief Complaint: CVA/severe left ICA stenosis
History of Present Illness:
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 Miguel, his primary Data Analytics Developer) with coronary artery disease status-post SERENA to OM2/OM 3 (2012), hypertension, hyperlipidemia, IDDM, and carotid artery stenosis admitted with a CVA. The patient needs to undergo
carotid endarterectomy for severe ICA stenosis. Patient denies chest pain, shortness of breath, or palpitations.
Past Medical History
Past Medical History: CAD, HTN, Hypercholesterolemia and IDDM
Past Surgical History: Cardiac (Coronary stenting)
Social History
Tobacco: Former Smoker (Remote in his 20s)
Alcohol: None
Drug: None
Personal:
Living: With Family
Employment: Retired
Family History
Family History: Reviewed & Not Pertinent
Allergies / Home Medications
Allergy/AdvReac Type Severity Reaction Status Date / Time
No Known Allergies Allergy Verified 10/01/24 21:01
�Medication �Instructions �Recorded �Confirmed �Type
insulin glargine 100 unit/mL (3 40 unit (0.4 mL) SC BID 1 month 10/19/23 Rx
mL) subcutaneous pen (Lantus #24 mL
Solostar U-100 Insulin)
Review of Systems
-
History Source: Patient
All other systems: Negative unless noted
Neurological: Dizzy, Headache and Weakness (Left-sided)
Physical Exam
Vital Signs
Temp Pulse Resp BP Pulse Ox
97.5 F 57 16 169/79 99
10/02/24 11:01 10/02/24 12:28 10/02/24 11:01 10/02/24 12:28 10/02/24 11:01
Lab Results
10/02/24 05:06
10/02/24 05:06
Troponin I 0.020 ng/ml 10/01/24 21:38
Physical Exam
General: No Apparent Distress and Comfortable
HEENT: Anicteric
Respiratory: Clear
Cardiac: S1/S2 and Regular Rhythm
Breast: N/A
GI: Soft
Rectal: Deferred by Provider
Musculoskeletal: No Clubbing, No Cyanosis and No Edema
Skin: Warm and Dry
Neuro: AO x 3
Psych: Calm
Impression / Plan
-
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 Miguel, his primary Data Analytics Developer) with coronary artery disease status-post SERENA to OM2/OM 3 (2012), hypertension, hyperlipidemia, IDDM, and carotid artery stenosis admitted with a CVA. The patient needs to undergo
carotid endarterectomy for severe ICA stenosis. Patient denies chest pain, shortness of breath, or palpitations.
Preprocedural cardiac evaluation/severe ICA stenosis:
- Given acuity of situation, patient needs to undergo CEA.
- Neck MRA recommends carotid ultrasound; will order.
- Patient denies any cardiac symptoms, unremarkable cardiac examination; can proceed with CEA as scheduled (likely low to intermediate risk).
CAD:
- Denies any anginal symptoms
- Continue aspirin.
- Continue atorvastatin 80 mg daily; LDL goal is less than 55 (currently 152).
- Of note, the patient has not followed up with Cardiology since 2020.
Hypertension:
- Continue lisinopril.
Hyperlipidemia:
- Goal LDL as above; on atorvastatin.
IDDM:
- Management as per primary team.
Data Reviewed
-
EKG: Tracing Personally Visualized and interpreted (Sinus rhythm at 67 bpm with incomplete right bundle branch block and LVH with repolarization abnormality (unchanged).)
MRI: Report Reviewed by me (Multifocal bilateral CVA)
Labs: Labs Reviewed by me
--- NOTE | 2024-10-02 16:30 | PTCARENOTE ---
Pt AAO x3, DUDLEY; OOB in room/to BR with minimal assistance at times; gait sl unsteady; denies weakness/dizziness. NIHSS1- pt has poor vision RT eye d/t retinal detachment 'for years'; can see finger movement with Rt eye. Fall prec maintained. VSS.
Telemetry:currently sinus natalia 50's. On room air- pulse ox 99%, no SOB noted. Abd large, soft, anshu PO well, no dysphagia noted. Voids in BR without difficulty. Resting in bed at present, no c/o. Will continue to monitor.
[2024-10-02 16:52] LABS: Glucose - Point of Care 127 mg/dl (70-99)
[2024-10-02] MEDS: LIPITOR 80 MG PO (17:24)
[2024-10-02] MEDS: LOVENOX 40 MG SC (17:24)
[2024-10-02 21:07] LABS: Glucose - Point of Care 131 mg/dl (70-99)
--- NOTE | 2024-10-02 21:34 | W.PN.UPDATE ---
Update Note
Progress Note Update
planning for L CEA tomorrow 10/03/24
-NPO @ [facility]
[2024-10-02] MEDS: LANTUS 0.3 UNITS SC (21:57)
[2024-10-03] VITALS (15 sets, daily range): BP systolic 104–207; BP diastolic 37–83; BMI 27.5
[2024-10-03 03:04] LABS: Glucose - Point of Care 118 mg/dl (70-99)
[2024-10-03 06:07] LABS: Glucose - Point of Care 140 mg/dl (70-99)
[2024-10-03] MEDS: NOVOLOG FLEXPEN-LOW RESISTANCE SC ×2 (07:30→14:40)
[2024-10-03] MEDS: NOVOLOG FLEXPEN SC ×3 (07:30→18:02)
[2024-10-03] MEDS: ZESTRIL 20 MG PO (07:45)
[2024-10-03] MEDS: LOW STRENGTH ASPIRIN 81 MG PO (07:46)
[2024-10-03] MEDS: APRESOLINE 10 MG IV (07:46)
--- NOTE | 2024-10-03 08:14 | PN.DE.MGMTRT ---
Insulin Management
- -
10/03/2024: Diabetes Management Consult
71 year old male with PMH: CAD s/p stents, IDDM, HTN who presented to the ED with right arm and leg weakness with some expressive aphasia or speech dysarthria type symptoms.
Patient is currently off the floor for test and then going to the OR for Left CEA. information obtained from chart review and discussion with nurse.
Prior to admission he was taking Lantus 40 BID and Metformin 500 mg BID, he is not available to endorse home doses. A1C 12.3%, Cr 1.2, eGFR >60
Current insulin regimen includes Lantus 30 units @ HS and NovoLog 8 units AC. 10/02 Premeal range was 94 to 136, HS glucose was 131 and Fasting 140 this AM.
Will cont same regimen for now. Will closely monitor glucose post-op and make insulin dose adjustments if necessary.
Will follow up with pt after procedure
Diabetes History
- -
Type of Diabetes: 2 requiring insulin
Pre-Admission Diabetes Regimen
Lab Results
Hemoglobin A1c 12.3 % (4.0-5.6) H 10/02/24 05:06
Insulin Pump Settings
IP Diabetes Regimen
10/02/24 10/02/24 10/02/24
12:22 16:50 21:06
POC Glucose 136 H 127 H 131 H
10/03/24 10/03/24
03:03 06:05
POC Glucose 118 H 140 H
Meal type: Breakfast
Meal type: Breakfast
Amount consumed: 100%
Patient Education
--- NOTE | 2024-10-03 09:25 | W.PN.HOSP.TC ---
Today's Communication/Plan
-
f/w cardiology and vascular recommendations
Assessment / Plan
Assessment / Plan
Physical Exam
-
General: Well Developed and Well Nourished
HEENT: Moist Mucous Membranes, Anicteric and PERRLA
Respiratory: Clear to Auscultation and Non-Labored Respirations; Negative Wheezes, Rales or Rhonchi
Cardiac: Regular Rhythm and S1/S2;
GI: Soft, Nontender, Nondistended and Normal Bowel Sounds
Musculoskeletal: No joint swelling. �Negative Edema, Left Lower Extrem
Skin: Warm, Dry and no rash
Neuro: Awake and AO x 3, non-focal exam.
Psych: Calm
# Numerous scattered nonhemorrhagic acute/subacute infarcts throughout the left parietal occipital and frontoparietal regions
He is feeling better
No new symptoms
going for echo and later labor relations director for Left carotid endarterectomy
he is followed by neurology and vascular surgery
Appreciate cardiology for pre-op evaluation
# DM II -
Poorly controlled. HGB A1C around 12
Per pt: take Lantus 40-50 hs at home with NovoLog 15 tidac
- sliding scale insulin
Will consult DM VOCATIONAL TRAINER for further management
# CAD
No chest pain or sob
# Essential HTN
seems poorly controlled
HTN urgency earlier,
reviewed by cardiology, pre-op SBP down to 160, will use gtt while in labor relations director
Vascular surgery would like tight control,
# JOSE ALFREDO, resolving
Total time spent to see the patient, examine the patient, review data and lab result, discuss treatment plan with patient, nursing staff around 55 minutes
Anticipated Discharge: > 48 hours
Subjective/Interval History
-
Date of Service: October 03, 2024
Seen earlier while going for echo
Objective Data
-
Vital Signs:
Vital Signs
Temp Pulse Resp BP Pulse Ox
98 F 58 20 207/83 100
10/03/24 07:44 10/03/24 07:45 10/03/24 07:44 10/03/24 07:45 10/03/24 07:44
I&O
10/02/24 10/03/24 10/04/24
06:59 06:59 06:59
Intake Total 600 / 600
Output Total 325 / 325
Balance -325 / -325 600 / 600
--- NOTE | 2024-10-03 09:33 | W.PN.CD ---
Addendum entered and electronically signed by Maurice Flynn MD 10/03/24 10:47:
I saw and examined the patient.
The WIRE STEWARD's note was reviewed and I agree with the note.
Comment:
74-year-old man with CAD, hypertension, hyperlipidemia, diabetes, and carotid artery stenosis admitted with CVA. Plan is for carotid endarterectomy today. We are consulted for preoperative risk stratification. He is able to complete 4 METS of
activity without any symptoms. Physical exam reveals RRR, no murmurs, no lower extremity edema, faint crackles at bilateral bases of the lungs. Echocardiogram reveals normal LVEF with no regional wall motion abnormalities and no significant
valvular disease. ECG 10/01/2024 with NSR, incomplete RBBB, LVH with repolarization abnormality.
He is at acceptable risk for carotid endarterectomy. His telemetry reveals dropped P waves that are most consistent with blocked PACs. He is asymptomatic. We will continue to monitor telemetry in the perioperative period. Continue aspirin,
statin, and BILL inhibitor. He may need additional antihypertensives postoperatively.
Original Note:
Today's Communication / Plan
-
Plan is for CEA today
Echo showed normal EF, tele in SR
BP elevated this AM, but now improved. Monitor closely post-op.
Continue ASA, statin, ACEI
Impression / Plan
-
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 Miguel, his primary Spring Salvage Worker) with coronary artery disease status-post SERENA to OM2/OM 3 (2012), hypertension, hyperlipidemia, IDDM, and carotid artery stenosis admitted with a CVA. The patient needs to undergo
carotid endarterectomy for severe ICA stenosis. Patient denies chest pain, shortness of breath, or palpitations.
Preprocedural cardiac evaluation/severe ICA stenosis:
-Given acuity of situation, patient needs to undergo CEA. Plan is for today. MRI done, U/s read pending from this AM.
-Patient denies any cardiac symptoms, unremarkable cardiac examination; can proceed with CEA as scheduled (likely low to intermediate risk).
-Echo 10/03/24: Normal biventricular size and systolic function without regional wall motion abnormality. Mild concentric left ventricular hypertrophy. No significant valvular disease. No significant change since the prior study of 11/02/2013.
CAD:
- Denies any anginal symptoms
- Continue aspirin.
- Continue atorvastatin 80 mg daily; LDL goal is less than 55 (currently 152).
- Of note, the patient has not followed up with Cardiology since 2020.
Hypertension:
-quite elevated this AM, but now improved (s/p IV hydralazine and AM lisinopril)- monitor closely post-op per protocol
-Continue lisinopril.
Hyperlipidemia:
- high intensity statin recommended
- Goal LDL as above; on atorvastatin 80g.
IDDM:
- A1c 12
- Management as per primary team.
Physical Exam
Vital Signs/Labs
Vital Signs
Temp Pulse Resp BP Pulse Ox
98 F 58 20 207/83 100
10/03/24 07:44 10/03/24 07:45 10/03/24 07:44 10/03/24 07:45 10/03/24 07:44
10/02/24 10/03/24 10/04/24
06:59 06:59 06:59
Actual Weight 89.811 kg
10/02/24 05:06
10/02/24 05:06
PT 15.3 Sec (11.4-14.6) H 10/01/24 21:38
INR 1.18 10/01/24 21:38
APTT 24.3 Sec (23.4-35.0) 10/01/24 21:38
Triglycerides 126 mg/dl (10-149) 10/02/24 05:06
LDL Cholesterol, Calc 152 mg/dl 10/02/24 05:06
VLDL Cholesterol, Calc 25 mg/dl (0-30) 10/02/24 05:06
HDL Cholesterol 33 mg/dl 10/02/24 05:06
LAB Results
10/01/24
21:38
Troponin I 0.020
Physical Exam
Constitutional: No acute distress
EENT: Anicteric
Cardiovascular: Rhythm & rate is regular
Respiratory: Respiratory effort normal and Lungs clear to auscul.
Neuro/Psych: AO x 3
Other: Skin (warm and dry)
Data Reviewed
-
Date of Service: October 03, 2024
EKG: Other (SR tele)
Echo: Report Reviewed by me (as noted )
Labs: Labs Reviewed by me
--- NOTE | 2024-10-03 10:31 | W.PN.UPDATE ---
Update Note
Progress Note Update
Seen and evaluated in the preoperative area. 74-year-old male with right arm and leg weakness with some expressive aphasia or speech dysarthria type symptoms. Resolution for the most part of neurologic deficits though he notes his right arm and
leg still feel a little off but for the most part okay. No prior strokelike/TIA type symptoms. No history of strokes. He does have a history of coronary artery disease status post stents in 2013. He does have a history of tobacco use but quit in
his 20s pack-a-day smoker prior.
Currently neurologically moves all extremities well.
CT angiogram imaging reviewed. Significant left carotid stenosis. MRI brain report reviewed. Numerous scattered nonhemorrhagic acute/subacute infarcts throughout left parietal and frontoparietal lobes.
Plan/ Symptomatic left carotid stenosis. Discussed extensively with patient findings and recommendations for revascularization for stroke prevention. Discussed with him options of carotid endarterectomy versus carotid stenting (TCAR). Discussed
CTA findings as well as carotid duplex support of a greater than 70% stenosis. Discussed procedure of carotid endarterectomy which is what I am recommending. Discussed anticipated recovery/outcomes. Discussed risks including but not limited to
bleeding, infection, cardiac complication/[place], cranial nerve injury, stroke (1 to 2% in the symptomatic setting). He understands all wishes to proceed. Plan LEFT carotid endarterectomy today.
--- NOTE | 2024-10-03 10:34 | W.SUR.PREOP ---
Pre-Operative Surgical Note
-
I have examined this patient prior to the performance of the scheduled procedure.
The patient's condition is unchanged from the time of the current History and
Physical and the patient is able to undergo the scheduled procedure.
[2024-10-03] MEDS: BACTROBAN NASAL 1 GRAM NASAL (10:39)
--- NOTE | 2024-10-03 10:44 | PTCARENOTE ---
Received patient this am AAOx3. Pt NPO for OR. Pt's B/P 207/83. Pt Medicated with Zestril PO and Hydralazine 10 mg IV. 914 B/P recheck was 184/76 at 09 recheck B/P 162/74. Dr. Mariee and cardiology made aware. Pt off unit this am for Echo and
carotid U/S. Pt offered no complaints. Made patient comfortable. Report called and patient sent to cath/vascular lab. Pt scheduled for Left CEA today.
[2024-10-03 11:43] LABS: Glucose - Point of Care 152 mg/dl (70-99)
--- NOTE | 2024-10-03 12:44 | W.SUR.POST ---
Surgical Immediate Post Op
Note
Pre Op Diagnosis: Carotid stenosis
Post Op Diagnosis: same
Procedure Performed: Left carotid endarterectomy with bovine pericardial patch angioplasty and EEG monitoring
Primary Surgeon: Selvin
Assist: Theron WATERMAN
Anesthesia: General
Estimated Blood Loss: 10cc
Fluids: See anesthesia flow sheet
Drains/Shunts: None
Specimens/Cultures: Carotid plaque
Doppler/Duplex/Angio (Y/N): Y
Complications: none
Operative Findings: Woke from anesthesia moving all extremities
--- NOTE | 2024-10-03 13:14 | OR.RPT ---
Operative Report
Operative Report
PROCEDURE DATE: 10/03/2024
Preoperative diagnosis: Symptomatic left carotid artery stenosis.
Postoperative diagnosis: Same
Procedure: Left carotid endarterectomy with bovine pericardial patch angioplasty and intraoperative EEG/SSEP monitoring.
Surgeon: Selvin
Rehab Trainer: JORGE ALBERTO Crump, required for all aspects of procedure including assistance with traction/countertraction, following a suture line, assistance with closure.
Complications: None
Anesthesia: General
Indications for procedure:
Symptomatic left carotid stenosis. Patient presented with strokelike symptoms. Right-sided arm and leg weakness and speech issues. MRI confirmed numerous nonhemorrhagic acute/subacute infarcts throughout left parietal and frontal parietal
regions. Risk/benefits/alternatives of left carotid revascularization fully discussed. Patient understood all wished to proceed with left carotid endarterectomy.
Description of procedure:
Patient was identified brought to the operating room placed on the table in supine position. After the adequate administration of anesthesia and perioperative antibiotics he was prepped and draped in the standard surgical fashion. A standard
preoperative timeout was undertaken and everybody was in agreement the plan. A standard longitudinal incision was made in the left neck that was carried through the skin subcutaneous tissue. Using the electrocautery dissection was carried through
the platysma muscle layer and then alongside the anterior medial border of the sternocleidomastoid muscle. Then using a combination of sharp dissection with the Metzenbaum scissors and electrocautery I dissected along the anterior medial border of
the internal jugular vein. A small crossing presumably common facial vein branch was ligated between silk ties and then divided (with smaller than the typical common facial vein branch). I then deepened my retraction. The common carotid artery
was identified and carefully dissected away from the surrounding structures take great care to avoid any injury to the structures. A vessel loop was passed around it which was double looped, but not yet tightened. Note the vagus nerve was
protected from harm's way. I then continued my dissection up the common carotid artery to the bulb staying only on the anterior surface of the carotid artery. Note here there was a larger vein branch crossing, perhaps this was the actual common
facial vein branch. Regardless this was carefully ligated between silk ties and then divided. Then I carried the dissection up to the internal carotid artery and then to the distal internal carotid artery. I had noted based on the CT scan imaging
that the plaque extended for a few centimeters beyond the origin of the internal carotid artery, and therefore intentionally dissected for a few centimeters onto the internal carotid artery. I identified where it was soft distally and carefully
circumferentially dissected the internal carotid artery with minimal mobilization and passed a vessel loop around it. Note the hypoglossal nerve was clearly visualized and was preserved from harm's way. Note the vagus nerve was somewhat adherent
to the lateral aspect of the internal carotid artery more distally. It was carefully dissected off the artery without actually grasping the nerve. Both nerves (hypoglossal and vagus) were clearly visualized and protected from harm's way. The
patient was given an appropriate dose of heparin 9000 units. Next I dissected the anterior surface of the external carotid artery and superior thyroid branches. Given difficulty dissecting these due to inflammatory tissue likely plaque related, I
elected to circumferentially dissect these after clamping the internal carotid artery. After 3 minutes of heparin circulation time and confirmation of optimization of the blood pressure with my anesthesiology colleagues, I clamped the distal
internal carotid artery where it was soft. There was no immediate EEG or SSEP changes. After 1 minute of test clamp time there was no changes noted. Note during the test clamp time the external carotid and superior thyroid branches were carefully
circumferentially dissected with minimal mobilization and vessel loops passed around these which were double looped but not yet tightened. After one minute of test clamp time, the vessel loops on the external carotid artery and superior thyroid
branches were tightened and the common carotid artery was clamped where it was soft proximally. An arteriotomy was made on the common carotid artery with an 11 blade and extended using a Esquivel scissor. I extended the arteriotomy onto the mid to
distal internal carotid artery. I noted heavy mixed plaque, partially calcified, partially soft plaque. Bluish discoloration could be seen in portion of the plaque suggesting hemorrhagic core. A [place] was then used to endarterectomized the
plaque. An endarterectomy plane was created, and the plaque was then endarterectomized. Distally I feathered the plaque out to a nice clean endpoint in the distal internal carotid artery. Next I endarterectomized the intima back to normal intima
in the common carotid artery, and the intima was cut flush there. I then grasped the plaque and everted plaque out of the origin of the external carotid artery. The plaque was then sent off for specimen. There was still little bit of loose intima
in the common carotid artery proximally, and some thickened plaque here. Therefore I had to a couple of times dissect more proximally and then we clamped more proximally. Finally I clamped proximally enough that I had more room, and then placed a
Derra type clamp proximally and then removed my other common carotid artery clamp. Now much better visualization. The origin of the external carotid artery was carefully visualized and appeared to be devoid of any residual plaque debris. Proximal
and distal endpoints were then carefully inspected. Any fine debris was removed with fine forceps, and the intima was noted to be nicely adherent proximally and distally at this point. Next any fine debris were removed throughout the
endarterectomy bed with fine forceps. I then flushed heparinized saline. I was very satisfied. Then, I used a bovine pericardial patch to sew a patch angioplasty with a running 6-0 Prolene suture. Prior to completing and tying down my suture
line, I backbled sequentially each branch and reclamped each branch prior to unclamping the next branch. I then irrigated with heparinized saline. Then I completed and tied down my suture line. We then restored flow in the common carotid and
external carotid arteries. Finally, we released flow in the internal carotid artery. There was excellent pulsatile flow in all 3 vessels. There was an excellent Doppler signal in the internal carotid artery distal to the patch with a good normal
low resistance Doppler signal. There was a good Doppler signal in the external carotid artery as well. Protamine was given to reverse the heparin. Hemostasis was completely achieved. We then irrigated and confirmed full hemostasis. We then
closed in layers with 2-0 Vicryl layer to reapproximate the sternocleidomastoid muscle, followed by 3-0 Vicryl platysma muscle running layer, followed by 4-0 Monocryl subcuticular stitch. Dermabond was applied. The patient tolerated procedure
well. He awoke moving all extremities with tongue in the midline.
[2024-10-03 13:44] LABS: Glucose - Point of Care 190 mg/dl (70-99)
[2024-10-03 14:04] LABS: Hematocrit 34.7 % (39.0-52.0); Hemoglobin 11.9 g/dL (13.0-18.0); Mean Corp Hgb Conc. 34.3 g/dL (33.0-37.0); Mean Corpuscular Hgb 29.6 pg (27.0-31.0); Mean Corpuscular Volume 86.3 fL (80.0-94.0); Mean Platelet Volume 12.7 fL (7.4-10.4); Platelet Count 175 10^3/uL (130-400); Red Blood Cell Count 4.02 10^6/uL (4.70-6.10); Red Cell Dist. Width 12.8 % (11.5-14.5); White Blood Cell Count 12.6 10^3/uL (4.8-10.8)
[2024-10-03 14:14] LABS: INR 1.21; PT 15.6 Sec (11.4-14.6)
[2024-10-03 14:15] LABS: APTT 25.9 Sec (23.4-35.0)
[2024-10-03 14:35] LABS: Blood Urea Nitrogen 19 mg/dl (9-20); Calcium 8.6 mg/dl (8.4-10.2); Carbon Dioxide 19 mmol/L (22-30); Chloride 114 mmol/L (98-107); Estimated Creatinine Clearance 88 ml/min; Glucose 211 mg/dl (70-99); Potassium 4.3 mmol/L (3.5-5.1); Sodium 138 mmol/L (135-145); eGFR > 60.00
--- NOTE | 2024-10-03 14:48 | CON.NEURO ---
Addendum entered and electronically signed by Nirmala Machuca NP 10/03/24 17:36:
.
Original Note:
Neuro Assessment/Plan
Assessment
74 year old man with history of coronary artery disease status post stents in 2013, insulin-dependent diabetes, HTN with numerous scattered nonhemorrhagic acute/subacute infarcts throughout the left parietal occipital and frontoparietal regions due
to symptomatic Left carotid bulb 75% now s/p L CEA and worsening right sided weakness and expressive aphasia.
Head CT small left occipital hypodensity, MCA territory, wedge shaped with cortical involvement
CTA head/neck agree L carotid bulb 75%, occlusion of a small L parietal branch
Brain MRI with numerous scattered nonhemorrhagic acute/subacute infarcts throughout the left parietal occipital and frontoparietal regions
Carotid Ultrasound:
RIGHT: Calcified plaque is identified in the carotid bulb and proximal internal carotid artery. Carotid velocity profile is consistent with less than 50% internal carotid artery stenosis. Acoustic shadowing from calcified plaque limits full
evaluation of the internal carotid artery and therefore correlation with CT angiography from October 02, 2024 is recommended. The vertebral artery is occluded.
LEFT: Calcified plaque is identified in the carotid bulb and proximal internal carotid artery. Carotid velocity profile is consistent with a greater than 70% internal carotid artery stenosis. Vertebral artery flow is antegrade.
CTA Head: There is high-grade stenosis of the bilateral cavernous and paraclinoid ICAs, more pronounced on the left and unchanged from prior.
CTA Neck: Postoperative changes of left carotid endarterectomy without significant residual stenosis of the left carotid bifurcation, however there is focal high-grade stenosis within the proximal cervical ICA which may be secondary to small
thrombus.
There is unchanged right vertebral artery occlusion with reconstitution of the V3 segment focal occlusion of the V4 segment. Left dominant vertebral artery.
There is unchanged atherosclerotic calcification of the right carotid bifurcation/proximal ICA with resultant approximately 60% stenosis by [employer] criteria.
Labs: Cholesterol 210, LDL 152, Hgb A1C 12.3
Plan
Impressions: Recrudesce of symptoms from Left parietal and frontoparietal stroke vs acute stroke due to thrombus s/p L CEA
-Per Dr. Montalvo CTA raises concern for clamp related injury or a plaque embolization, to OR with vascular surgery, appreciate recommendations
-will need aspirin 81 mg daily and clopidogrel 75 mg daily
-continue atorvastatin with LDL goal <70
-goal normotension
-Hgb A1C 12.3, goal <7 and normoglycemia
-neurochecks and NIHSS per unit guidelines
-stoke education material to be given
-PT/OT/ST evaluations
-DVT prophylaxis
Consultation
Order
Date of Consultation: 10/03/24
Requesting Provider: Dr. Montalvo
Reason for Consult: right upper extremity weakness
Subjective/Objective
Subjective Data
Date of Service: October 03, 2024
74 year old man with past medical history significant for CAD status post stents, insulin-dependent diabetes, hypertension who presented to the emergency department with confusion and unsteadiness as well as mild peripheral hallucinations on
10/02/2024. Head CT with acute stroke left occipital, not seen on head CT 09/27. no deficits at that time. Also with symptomatic left carotid bulb 75%, vascular surgery consulted. His brain MRI showed numerous scattered nonhemorrhagic acute/subacute
infarcts throughout the left parietal occipital and frontoparietal regions. Total cholesterol was 210 and LDL 152. He was getting ASA 81 mg and atorvastatin 80 mg prior to admission. Today underwent left carotid endarterectomy for his symptomatic
left carotid stenosis. In the recovery room, he was noted to have right upper extremity weakness. When he was waking up from surgery initially had good strength. A stroke alert was called at 1342. His head CT demonstrated no evidence of intracranial
bleed. His exam worsened while in CT. Right upper extremity became flaccid. CTA head with high-grade stenosis of the bilateral cavernous and paraclinoid ICAs, more pronounced on the left and unchanged from prior. CTA neck with postoperative changes
of left carotid endarterectomy without significant residual stenosis of the left carotid bifurcation, however there is focal high-grade stenosis within the proximal cervical ICA which may be secondary to small thrombus. NIHSS 17. Patient taken
emergently back to OR with vascular surgery.
Objective Data
Vital Signs
Temp Pulse Resp BP Pulse Ox
98.0 F 57 17 124/66 96
10/03/24 13:42 10/03/24 14:30 10/03/24 14:30 10/03/24 14:15 10/03/24 14:30
Lab Results
10/03/24 13:57
10/03/24 13:57
PT 15.6 Sec (11.4-14.6) H 10/03/24 13:57
INR 1.21 10/03/24 13:57
APTT 25.9 Sec (23.4-35.0) 10/03/24 13:57
Sodium 138 mmol/L (135-145) 10/03/24 13:57
Potassium 4.3 mmol/L (3.5-5.1) 10/03/24 13:57
BUN 19 mg/dl (9-20) 10/03/24 13:57
Glucose 211 mg/dl (70-99) H 10/03/24 13:57
Calcium 8.6 mg/dl (8.4-10.2) 10/03/24 13:57
LDL Cholesterol, Calc 152 mg/dl 10/02/24 05:06
Patient Allergies
No Known Allergies Allergy (Verified 10/01/24 21:01)
CVA Assessment
Onset of Stroke Symptoms
Onset of symptoms known: Yes
Date of onset of symptoms: 10/03/24
Time of onset of symptoms: 13:42
NIH Stroke Score
Level of Consciousness: 1 - Arousable
LOC Questions: 2-Neither correct
LOC Commands: 1-Performs one correctly
Best Horizontal Gaze: 1-Partial gaze palsy
Visual Crockett: 2=Full hemianopia
Facial Palsy: 1=Minor paralysis
Motor - Right Arm: 4=No movement
Motor - Left Arm: 0=No drift 10 seconds
Motor - Right Le-Drift < 5 seconds
Motor - Left Le-No drift 5 seconds
Limb Ataxia: 2-Present in two limbs
Sensation: 0-Normal
Best Language: 2-Severe aphasia
Dysarthria: UN-Intubated, other (nonverbal )
Extinction and Inattention: 0-No abnormality
NIH Total Score:: 17
Tenecteplase Contraindications
Inclusion and Exclusion criteria reviewed: Yes
Modified Kelly Score (MRS)
-
Modified Pettigrew Scale (mRS): Moderately severe disability. Unable to attend to bodily needs/walk.
Score: 4
Review of Systems
-
Unable to obtain full review of systems at this time due to: Acuity and Patient Non-verbal
Physical Exam
-
General: Appears Stated Age
Cardiac: JVD
GI: Non-distended
Skin: Unremarkable
Extremities: No Clubbing, No Cyanosis and No Edema
Psych: Unable to Assess
Extended Neurological Exam
Mood & Affect: Unable to Assess
Attention Span & Concentration: Lethargic
Memory: Unable to Assess
Speech: Unable to Assess
Cranial Nerve II: Right Eye: Visual Crockett Reduced
Muscle Strength, Overall: Reduced on Right (RUE flaccid, RLE 4/5)
Pronator Drift: Drift in Right Lower Extremity
Data Reviewed
-
CT-A: Report Reviewed and Image Reviewed
CT Head: Report Reviewed and Image Reviewed
MRI Head: Report Reviewed and Image Reviewed
Labs: Report Reviewed
Lipid Profile: Report Reviewed
Reviewed with: Physician and Patient
Old Records: Summarized
Medications
-
Active Medications
Generic Name Dose Route Start Last Admin
Trade Name Freq PRN Reason Stop Dose Admin
Acetaminophen 650 mg 10/02/24 03:24
Acetaminophen 650 Mg Rectal Suppository RECTAL 10/30/24 03:23
Q4HPRN PRN
IRIZARRY, mild pain, or temp >100.4F
Acetaminophen 650 mg 10/03/24 12:40
Acetaminophen 325 Mg Tablet PO 10/31/24 12:39
Q4HPRN PRN
mild pain or temp >/= 100.4 F
Aspirin 81 mg 10/02/24 08:00 10/03/24 07:46
Aspirin 81 Mg Chewable Tablet PO 10/30/24 07:59 81 mg
DAILY NEFTALI Administration
Atorvastatin Calcium 80 mg 10/02/24 18:00 10/02/24 17:24
Atorvastatin (Lipitor) 80 Mg Tablet PO 10/30/24 17:59 80 mg
QPM NEFTALI Administration
Bisacodyl 10 mg 10/03/24 12:40
Bisacodyl 10 Mg Rectal Suppository RECTAL 10/31/24 12:39
DAILYPRN PRN
constipation
Dextrose 12.5 grams 10/02/24 04:00
Dextrose 50% (0.5 Grams/Ml) 50 Ml Syringe IV 10/30/24 03:59
[id number] PRN
hypoglycemia
Protocol
Dextrose 12.5 grams 10/03/24 11:13
Dextrose 50% (0.5 Grams/Ml) 50 Ml Syringe IV 10/03/24 23:13
PROCEDURE-PRN PRN
glucose less than 70 mg/dL
Protocol
Enoxaparin Sodium 40 mg 10/02/24 18:00 10/02/24 17:24
Enoxaparin Sodium 40 Mg/0.4 Ml Syringe SC 10/30/24 17:59 40 mg
QPM NEFTALI Administration
Fentanyl Citrate 50 mcg 10/03/24 11:13
Fentanyl (50 Mcg/Ml) 100 Mcg/2 Ml Ampul IV 10/04/24 11:13
PACU-Q5MPRN PRN
severe pain
Fentanyl Citrate 25 mcg 10/03/24 11:13
Fentanyl (50 Mcg/Ml) 100 Mcg/2 Ml Ampul IV 10/04/24 11:13
PACU-Q5MPRN PRN
moderate pain
Glucagon 1 mg 10/02/24 04:00
Glucagon 1 Mg Vial IM 10/30/24 03:59
PRN PRN
hypoglycemia - no IV access
Protocol
Hydralazine HCl 10 mg 10/02/24 03:24 10/03/24 07:46
Hydralazine 20 Mg/Ml Vial IV 10/30/24 03:23 10 mg
Q4HPRN PRN Administration
SBP > 180
Hydromorphone HCl 0.5 mg 10/03/24 12:40
Hydromorphone 0.5 Mg/0.5 Ml Syringe IV 10/17/24 12:39
Q4HPRN PRN
severe pain
Insulin Glargine 30 units/ 0.3 mls @ 0 mls/hr 10/02/24 22:00 10/02/24 21:57
Device SC 10/30/24 21:59 0.3 mls
HS NEFTALI Administration
As Directed
Parenteral Electrolytes 1,000 mls @ 100 mls/hr 10/03/24 11:15
Normosol-R/Plasmalyte-A IV 10/04/24 11:13
PER PROTOCOL NEFTALI
Sodium Chloride 1,000 mls @ 80 mls/hr 10/03/24 12:45
Nss IV
.[id number] NEFTALI
Nicardipine/Sodium Chloride 40 mg in 200 mls @ 0 mls/hr 10/03/24 12:45
Cardene IV
PER PROTOCOL NEFTALI
Protocol
Per Protocol
Phenylephrine HCl 50 mg in 250 mls @ 0 mls/hr 10/03/24 12:45
Lance-Synephrine IV
PER PROTOCOL NEFTALI
Protocol
Per Protocol
Insulin Aspart 0 units 10/02/24 07:30 10/03/24 14:40
Insulin Aspart Low Resistance 300 Units/3 Ml Pen.Injctr SC 10/30/24 07:29 Not Given
AC NEFTALI
Protocol
Insulin Aspart 8 units 10/02/24 07:30 10/03/24 14:40
Insulin Aspart (Novolog) 100 Units/Ml 3 Ml Flexpen SC 10/30/24 07:29 Not Given
AC NEFTALI
Lisinopril 20 mg 10/02/24 08:00 10/03/24 07:45
Lisinopril 20 Mg Tablet PO 10/30/24 07:59 20 mg
DAILY NEFTALI Administration
Meperidine HCl 12.5 mg 10/03/24 11:13
Meperidine 25 Mg/Ml Injection IV 10/04/24 11:13
PACU-Q5MPRN PRN
shivers
Ondansetron HCl 4 mg 10/03/24 11:13
Ondansetron 4 Mg/2 Ml Vial IV 10/04/24 11:13
PACU-ONCEPRN PRN
nausea/vomiting
Oxycodone HCl 5 mg 10/03/24 12:40
Oxycodone 5 Mg Regular Release Tablet PO 10/17/24 12:39
Q4HPRN PRN
moderate pain
Prochlorperazine Edisylate 5 mg 10/03/24 11:13
Prochlorperazine 10 Mg/2 Ml Vial IV 10/04/24 11:13
PACU-ONCEPRN PRN
nausea/vomiting
Sodium Chloride 0 flush 10/02/24 01:00 10/02/24 01:25
Sodium Chloride 0.9% (Flush) Syringe IV 10/30/24 00:59 1 flush
PER PROTOCOL NEFTALI Administration
Home Medications
�Medication �Instructions �Recorded
insulin glargine 100 unit/mL (3 40 unit SC BID Diabetes 10/03/24
mL) subcutaneous pen (Lantus
Solostar U-100 Insulin)
Past History
Past History
ED Past Medical History: CAD, GERD, HTN, Hypercholesterolemia and IDDM
ED Past Surgical History: Cardiac (Cardiac stents)
Family/Social History
Tobacco: Non-smoker
Alcohol: None
Drug: None
Personal: Single
Living: with family
Employment: Retired
--- NOTE | 2024-10-03 15:10 | W.PN.UPDATE ---
Update Note
Progress Note Update
Saw patient in recovery room. Noted increased right arm weakness. When he was waking up from surgery initially had good strength. Now the right hand weakness began. Was not moving the right hand as well. Seem to almost have some hemineglect. I
immediately called a stroke alert. Immediate response by Dr. Montoya and team. We took the patient down to CT scan where noncontrast can demonstrated no evidence of intracranial bleed. However in my interpretation of the CT angiogram images there
was a filling defect in the distal left internal carotid artery what appears to be the vicinity of the end of the patch or just beyond the patch. Beyond here the internal carotid artery is normal. Therefore this does not represent a dissection but
raises concern for an acute problem here or whether it is a clamp related injury or a plaque embolization. Urgent OR now. Of note patient's exam slightly deteriorated while in CAT scan with increased weakness of the left hand.
--- NOTE | 2024-10-03 15:15 | PTCARENOTE ---
PT waxing and waning with following commands, PT unable to lift right arm all the way and at times, unable completely, PT has lost strength in the right arm, attempts but is unable to follow commands, or just complete neglect to the request, DR Montalvo
saw PT, Stroke alert called, PT transported to stat CT, then transported straight to [facility]
[2024-10-03 15:43] LABS: Glucose - Point of Care 220 mg/dl (70-99)
[2024-10-03 16:12] LABS: ACT-LR - POC 232 Seconds (116-155)
[2024-10-03 16:28] LABS: ACT-LR - POC 244 Seconds (116-155)
[2024-10-03 16:37] LABS: ACT-LR - POC 248 Seconds (116-155)
[2024-10-03 17:30] LABS: Glucose - Point of Care 198 mg/dl (70-99)
--- NOTE | 2024-10-03 17:40 | OR.RPT ---
Operative Report
Operative Report
PROCEDURE DATE: 10/03/2024
Preoperative diagnosis:
1. Neurologic change status post left carotid endarterectomy for symptomatic left carotid stenosis.
2. Thrombus at proximal internal carotid artery/distal patch site noted on CT scan imaging.
Postoperative diagnosis: Same
Procedure:
1. Emergent takeback to the OR for reexploration left neck.
2. Thrombectomy left internal carotid artery with revision patch angioplasty.
3. Thrombectomy of common carotid artery.
4. Intraoperative duplex assessment of left common and internal carotid artery.
5. Ligation of left external carotid artery.
Surgeon: Selvin
Reliability Technician: JORGE ALBERTO Renteria, required for aspects of procedure including assistance with traction/countertraction, following suture line, assistance with closure.
Complications: None
Anesthesia: General
Indications for procedure:
As above neurologic changes status post carotid endarterectomy for symptomatic carotid stenosis (patient had acute CVA). Now neurologic changes noted in recovery room. Therefore emergently brought to CT scanner and then to the OR.
Description of procedure:
Patient was identified brought to the operating room placed on the table in supine position. After the adequate administration of anesthesia he was prepped and draped in the standard surgical fashion. A standard preoperative timeout was undertaken
and everybody was in agreement the plan. We reopened the left neck incision and the Vicryl suture layers deeper. Self-retaining retractors were placed again. There was pulsatile flow in the carotid patch. No active bleeding noted. I quickly
redissected the internal, external, common carotid arteries. Vesseloops were passed around these. Of note the patient was given 9000 units of intravenous heparin prior to reopening the neck in order to prevent any further thrombosis.
Now I clamped the common carotid artery and the external carotid artery vessel loop was double up and tightened. I opened the distal aspect of the patch with an 11 blade and extended using a Esquivel scissor. There was brisk backbleeding from the
internal carotid artery. I had opened it initially to allow any backbleeding and any thrombus to trial backwards so as to not she is great anything centrally while placing a clamp. Now that I did that I placed a clamp in the distal internal
carotid artery well distal to the patch. The hypoglossal nerve was noted and the vagus nerve was also noted and care was taken to avoid any injury to the structures. Now I could see at the distal aspect of the patch there was what appeared to be
thrombus but slightly atypical appearing thrombus. Did not appear to be plaque debris. I remove this thrombus with a forcep. Once I did this I irrigated copiously that area and cleared any other residual small bit of thrombus. Then I could see
the endpoint of the patch which looked really good. However in order to better visualize I had to cut through the distal aspect of the patch onto the more distal internal carotid artery with a Esquivel scissor. I could see there was no technical
defect. There is no evidence of dissection. It was just that thrombus there. Once I cleared all this, I was satisfied that there is no residual thrombus. I irrigated heparinized saline through the entire field. Initially I thought I could try
to primarily close the patch, but this proved very challenging and therefore I had to cut the patch back on either side to the more proximal internal carotid artery. I grasped the suture strands with a fine hemostat on either side so that I could
tie to these. Given that I would have to replace that segment of patch, I felt that I wanted to minimize ischemic time to the brain at this point, and therefore I placed an [place] shunt. This was placed in the standard fashion and secured distally
with a shunt clamp and proximally the double vessel loop on the common carotid artery. With the artery shunted I now sewed a bovine pericardial patch into place on the internal carotid artery with a running 6-0 Prolene suture. Proximally it was
sutured to the pre-existing patch that I had cut. And I had tied it to the suture strand ends on either side of the patch from where I had to cut the prior patch. Prior to completing and tying down my suture line I remove my shunt, and backbled
the artery as well. Heparinized saline was irrigated. I then completed and tied down my suture line quickly. I then released flow in the common and internal carotid artery. Finally in the external carotid artery. The external carotid artery was
occluded based on the CT scan and therefore I do not want to release flow into that artery initially as it may cause thrombus to dislodge.
There was pulsatile flow in the carotid, and Doppler signal is reasonable but somewhat high-pitched. It also sounded a little weakened. Therefore I then used an intraoperative hockey-stick shaped duplex probe and performed duplex interrogation of
the internal and common carotid artery. When I did this I noted that there was either a flap or a filling defect or thrombus in the common carotid artery more proximally. Therefore I then quickly reclamped the internal carotid artery and the more
proximal common carotid artery. I then made an 11 blade on the proximal pre-existing patch (not the new portion of the patch that I had sewn to the pre-existing remnant), and I did this without coming across the suture lines. I had extended with
the Esquivel scissor. I now noted similar appearing thrombus that appeared distally. This presumably was new thrombus as it was not present on the CT scan prior to being back to the OR. I cleared all of this out and sent it for pathology. I
irrigated heparinized saline vigorously, and now I inspected all the surfaces look good. The proximal endpoint looks good proximal to the patch. I had pulled a small amount of the thrombus out of the origin of the external carotid as well. And
this raise concern that this was the source of the thrombus potentially. I therefore inspected the origin of the external carotid artery now and it looked good. However there was no backbleeding still suggesting more distal problem. Regardless I
felt at this point rather than delaying time I favored ligating the external carotid artery. Therefore I ligated the origin of the external carotid artery with a heavy silk tie. This would prevent any embolization from the external carotid stump
if this indeed was the source. Now I was concerned also for a hypercoagulable issue, or alternatively external carotid related thrombus. Given this concern I checked an ACT which demonstrated that it was over 200 but still not up to 250 despite
adequate heparinization. Therefore additional heparin was bolused. I now reinserted a shunt as well which was secured with shunt clip proximally and a vessel loop distally. I then primarily suture closed the patch that I had opened longitudinally
on the common carotid artery. Given the large size of the patch I did not feel that it would result in any significant stenosis and primary closure was reasonable. This was done with a running 6-0 Prolene suture, run from either end of that patch.
Prior to completing and tying down my suture line, I remove the shunt and reclamped the internal and common carotid arteries. I did backbleed these vessels well . I irrigated heparinized saline vigorously. I then quickly completed and tied down
my suture line. I then released my clamps on the common carotid and internal carotid arteries. There is no pulsatile flow. There is a good Doppler signal distal to the patched artery. I interrogated with a sterile duplex probe again and noted
good flow lumen, good flow on color Doppler, no evidence of residual thrombus or any defect, and spectral analysis with good waveforms. At this point satisfied. I irrigated, and achieved full hemostasis. I elected not to reverse the heparin due
to concerns for repeated thrombotic issues. We then closed in layers using a couple interrupted 2-0 Vicryl to reapproximate the sternocleidomastoid layer, followed by 3-0 Vicryl running platysma muscle layer, followed by 4-0 Monocryl subcuticular
running stitch. Dermabond was applied. The patient tolerated procedure well. He awoke moving his left arm and both legs with good strength. Initially his right arm seemed weak, but then as he woke up more he moved his more proximal arm and elbow
with good strength. Hand strength was still difficult to discern. He was still not fully following commands, but was transferred to recovery room now in stable condition. Given also improvement in his neurologic exam in terms of the right upper
extremity from the time he initially woke up to the time he was ready to really leave the operating room, I did speak to the neurologist on-call who had evaluated the patient earlier, and we both agreed to have the patient go to the recovery room
and further watch neurologic exam, and to hold off on imaging unless any further change noted.
[2024-10-03] MEDS: NEO-SYNEPHRINE 250 IV (17:42)
--- NOTE | 2024-10-03 18:11 | W.PN.UPDATE ---
Update Note
Progress Note Update
As per nurse practitioner's note.
Called to see patient urgently as a stroke alert due to significant right upper extremity weakness following needed revascularization of the patient's left internal carotid artery stenosis
Examination indicated right upper extremity plegia with the patient transiently lethargic and having significant difficulty with following single step requests
Patient's right pupil is ovoid with the left pupil circular
Subsequent CT of head and CTA revealed new evidence of thrombus in the left internal carotid artery with an occluded left external carotid artery
Differential diagnosis for the patient's subacute worsening is the new onset thrombosis. It is possible the patient has a hypercoagulable state leading to new thrombosis
Provide the patient with aspirin and add clopidogrel 75 mg daily for 21 days, then discontinue
Recheck CT of head after second surgical intervention today if the patient does not have near perfect return of right upper extremity movement
Continue atorvastatin
Patient was not a candidate for tenecteplase
Consider hypercoagulable evaluation
Goal of normoglycemia
We will follow
[2024-10-03] MEDS: NSS 1000 IV (18:35)
[2024-10-03] MEDS: NOVOLOG FLEXPEN-LOW RESISTANCE 2 UNITS SC (18:35)
[2024-10-03] MEDS: LIPITOR 80 MG PO (18:42)
[2024-10-03] MEDS: LOVENOX 40 MG SC (18:42)
--- NOTE | 2024-10-03 18:43 | PTCARENOTE ---
Addendum entered by Jaimie Bond RN 10/03/24 19:00:
bladder scan per work list. NIH completed with oncoming RN. ataxia persists right upper and lower leg. weak right hand grasp unchanged. urinal in reach
Original Note:
patient received from PACU@[id number]. patient drowsy, oriented to name, month at year. handoff NIH completed. monitor nsr, isai per work list. diminished breath sounds. abdomen soft. bladder scan per work list. patient denies nausea, pain. call schumacher in
reach. bed alarm activated
[2024-10-03 18:45] LABS: Glucose - Point of Care 238 mg/dl (70-99)
--- NOTE | 2024-10-03 19:56 | PTCARENOTE ---
Assumed care of pt at 1900. Pt is s/p left CEA and subsequent thrombectomy of left carotid. Received pt on Neosynephrine at 20mcg/min (see med titration flowsheet on worklist for full details). NIHSS done in tandem with offgoing RN, neuro
assessments are ongoing Q1 hour. See neuro flowsheet and stroke/neuro flowsheet for full details on these assessments. Pt is alert to self and place but not to time and situation. Able to follow commands. Is calm and cooperative with care. No c/o
pain at this time. Ice pack applied to left neck incision. SB 40s-50s on monitor, occasionally SR 60s. BPs obtained via right radial arterial line, NIBP correlates. Currently on room air with SpO2 96-97%. See nursing shift assessment flowsheet for
full physical assessment details. TT sent to Dr. Montoya regarding need for repeat CT scan based on pt's RUE movement, per Dr. Montoya pt does not need repeat CT at this time d/t amount of improvement in his right arm movement and will most likely
obtain MRI tomorrow.
--- NOTE | 2024-10-03 20:08 | PTCARENOTE ---
Assumed care of pt at 1900. Pt is s/p left CEA and subsequent thrombectomy of left carotid. Received pt on Neosynephrine at 20mcg/min (see med titration flowsheet on worklist for full details). NIHSS done in tandem with offgoing RN, neuro
assessments are ongoing Q1 hour. See neuro flowsheet and stroke/neuro flowsheet for full details on these assessments. Pt is alert to self only, gave the incorrect birthday and is not oriented to time/place/situation. Able to follow commands. Is
calm and cooperative with care. No c/o pain at this time. Ice pack applied to left neck incision. SB 40s-50s on monitor, occasionally SR 60s. BPs obtained via right radial arterial line, NIBP correlates. Currently on room air with SpO2 96-97%. See
nursing shift assessment flowsheet for full physical assessment details. TT sent to Dr. Montoya regarding need for repeat CT scan based on pt's RUE movement, per Dr. Montoya pt does not need repeat CT at this time d/t amount of improvement in his right
arm movement and will most likely obtain MRI tomorrow.
[2024-10-03] MEDS: CARDENE 200 IV (20:33)
--- NOTE | 2024-10-03 20:40 | PTCARENOTE ---
Pt's BP trending up, first high 150s-160 then remaining >165. Cardene started (see med titration flowsheet/EMAR for details), pt's SBP just before Cardene started was up to 180s. Pt reports 'not feeling right' but is unable to pinpoint his symptoms.
Denies headache. When asked if he is dizzy he said 'maybe a little bit'. Neuro assessment is unchanged. Pt states his RUE feels numb but when sensation is checked along with LUE he says he can feel me touching him on the right side and it feels the
same as the left. ROM to RUE intact/unchanged, pt has a weaker hand grasp but this is not new. Cardene titrated up to attempt to meet SBP goal of <165, see flowsheet for details.
--- NOTE | 2024-10-03 21:24 | PTCARENOTE ---
Pt's BP improved on Cardene, now SBP is 120s-140s. Pt is more oriented now, knows where he is, stated his correct birthday and is more aware of situation. Neuro assessment still unchanged but pt feels like he can move his right hand better and has
less numbness to his right hand, pt in better spirits now that he has seen/felt some improvement. Able to void 500mL clear yellow urine in urinal. Pt currently watching TV.
[2024-10-03 22:13] LABS: Glucose - Point of Care 207 mg/dl (70-99)
[2024-10-03] MEDS: LANTUS 0.3 UNITS SC (22:13)
[2024-10-04] VITALS (20 sets, daily range): BP systolic 93–186; BP diastolic 53–119; PULSE 65; BMI 27.2
--- NOTE | 2024-10-04 00:02 | PTCARENOTE ---
Assessment unchanged. Pt much more oriented now, A/O x4, continues with RUE weakness but has been able to move his right hand better and states that he feels like he is getting better. Cardene had been turned off but is now back on because BP went
up to 180s again. See med titration flowsheet for titration details. SR 60s on monitor, SpO2 97% on RA.
[2024-10-04] MEDS: NSS IV (02:43)
--- NOTE | 2024-10-04 04:34 | PTCARENOTE ---
Assessment unchanged. Pt currently still on Cardene at 2.5mg/hr--has been on and off throughout the shift. Neurological assessment unchanged. Pt feels like he is a little confused still, forgetful about situation but easily reorients. CHG cloth bath
done and linens changed. SR 70s on monitor.
[2024-10-04 04:37] LABS: Hematocrit 33.6 % (39.0-52.0); Hemoglobin 11.5 g/dL (13.0-18.0); Mean Corp Hgb Conc. 34.2 g/dL (33.0-37.0); Mean Corpuscular Hgb 29.4 pg (27.0-31.0); Mean Corpuscular Volume 85.9 fL (80.0-94.0); Platelet Count 178 10^3/uL (130-400); Red Blood Cell Count 3.91 10^6/uL (4.70-6.10); Red Cell Dist. Width 13.1 % (11.5-14.5); White Blood Cell Count 15.5 10^3/uL (4.8-10.8)
[2024-10-04 04:41] LABS: INR 1.27; PT 16.1 Sec (11.4-14.6)
[2024-10-04 04:44] LABS: Blood Urea Nitrogen 16 mg/dl (9-20); Calcium 8.7 mg/dl (8.4-10.2); Carbon Dioxide 19 mmol/L (22-30); Chloride 116 mmol/L (98-107); Estimated Creatinine Clearance 100 ml/min; Glucose 169 mg/dl (70-99); Potassium 4.6 mmol/L (3.5-5.1); Sodium 141 mmol/L (135-145); eGFR > 60.00
[2024-10-04] MEDS: TYLENOL 650 MG PO (05:01)
[2024-10-04] MEDS: NSS 1000 IV (06:14)
[2024-10-04 07:26] LABS: Glucose - Point of Care 147 mg/dl (70-99)
--- NOTE | 2024-10-04 07:45 | PN.DE.MGMTRT ---
Insulin Management
- -
10/04/2024: Diabetes Management Consult Follow up
Patient admitted with weakness, intermittent numbness bilateral arms and legs, some expressive aphasia or speech dysarthria type symptoms. PMH: CAD s/p stents, IDDM, HTN, GERD, HCL. Prior to admission he was taking Lantus 40 BID and Metformin 500
mg BID, and novolog 10 to 15 units @ each meal. A1C 12.3%, Cr 1.2, eGFR >60.
POD 1 s/p L carotid endarterectomy. Patient is awake and alert,OOB in chair, able to discuss diabetes care. States he has a meter but not that reliable, he had a sensor but needs a new one. Will provide new Contour Next meter.
Current insulin regimen includes Lantus 30 units @ HS and NovoLog 8 units AC and low corrective AC. 10/03 Premeal range was 190 to 238, HS glucose was 207. Fasting 147 this AM.
Patient spent most of 10/03 in OR and NPO, will make no change to regimen at this time. Will closely monitor glucose and adjustment insulin regimen if necessary.
Discussed with nurse.
Will follow
Diabetes History
- -
Type of Diabetes: 2 requiring insulin
Pre-Admission Diabetes Regimen
10/03/24 10/04/24
13:57 04:14
Creatinine 0.8 0.7
Lab Results
Hemoglobin A1c 12.3 % (4.0-5.6) H 10/02/24 05:06
Insulin Pump Settings
IP Diabetes Regimen
10/03/24 10/03/24 10/03/24
11:31 13:43 13:57
Glucose 211 H
POC Glucose 152 H 190 H
10/03/24 10/03/24 10/03/24
15:32 17:29 18:34
Glucose
POC Glucose 220 H 198 H 238 H
10/03/24 10/04/24 10/04/24
22:12 04:14 07:25
Glucose 169 H
POC Glucose 207 H 147 H
Meal type: Lunch
Patient Education
--- NOTE | 2024-10-04 08:16 | CON.INTV ---
Consultation
Consultation Request
Date/Time Consultation Requested: 10/03/20241239
Date/Time Consultation Performed: 10/04/2024810
Requesting Provider: GUEVARA Werner
Performing Provider: Dr. Hayden
Reason for Consultation: s/p L-CEA
Medical History
-
Chief Complaint: Right sided weakness with brain fog
History of Present Illness:
74-year-old male with a past medical history of hypertension, hyperlipidemia, CAD s/p stenting to OM 2+ OM 3 (2012), DM type II, carotid artery disease and history of COVID-19 who presents with confusion, unsteadiness, right-sided weakness and brain
fog. In the ER he was afebrile to 98.4 �F, pulse rate 70, BP 139/66, and saturating 98% on room air. Initial labs showed mild leukocytosis to 11.4, Hb 13.4, creatinine 1.5, glucose 274, and troponin negative at 0.02. Initial CT head showed an
ill-defined focus of hypoattenuation within the left parietal�occipital lobe, measuring 2.2 cm concerning for an acute infarct. CTA head/neck showed an occluded right vertebral artery, with calcified plaque within both carotid bulbs with
approximate 60% stenosis on each side, and also calcified plaque within the cavernous and supraclinoid portion of each internal carotid artery. He was given aspirin +1 L NS 0.9% and admitted to telemetry for further care. Neurology and vascular
surgery consulted. Brain MRI on 10/02 slowed numerous scattered nonhemorrhagic acute/subacute infarcts throughout the left parietal�occipital and frontoparietal regions suspicious for embolic etiology. Carotid ultrasound performed on 10/03 showing an
occluded right sided vertebral artery, with calcified plaque in the left carotid bulb and proximal ICA with >70% stenosis. Patient was consented for left carotid endarterectomy due to symptomatic left carotid artery stenosis, and this procedure was
performed on 10/03 with bovine pericardial patch angioplasty and intraoperative EEG/SSEP monitoring. After this procedure, the patient developed sudden loss of right-sided motor function and altered mental status - stroke alert called. NIH stroke
scale was 17. Stat CT head showed no acute intracranial abnormality. CTA head/neck was obtained with a focal high-grade stenosis within the proximal left-sided cervical ICA which may be secondary to a small thrombus. Patient was emergently
brought back to the OR for reexploration of the left neck, and underwent thrombectomy of left internal carotid artery with revision patch angioplasty, and thrombectomy of common carotid artery with ligation of the left external carotid artery.
Patient was then transferred to the ICU for further care and photonics engineer services consulted for additional management/recommendations.
Patient was seen and evaluated this morning. Of note, patient did not arrive into the ICU until 1720 on 10/03/2024 given his postoperative complication as stated above. Currently, pt is saturating 95% on room air, BP 133/86 with heart rate 78.
Cardene turned off this morning at around 6 AM. He continues to have issues with his right hand involving fine motor control. He is able to move his right arm as well as left arm and legs. Still has some brain fog. He currently denies chest
pain, IRIZARRY, nausea, fevers or chills. NIHSS was 2 this morning
PMHx: Hypertension, hyperlipidemia, CAD s/p stenting to OM 05/30 (2012), DM type II, carotid artery disease, history of COVID-19
PSHx: Cataract surgery
Past Medical History
Past Medical History: Other (Above as per HPI)
Past Surgical History: Other (Above as per HPI)
Social History
Tobacco: Former Smoker
Alcohol: None
Drug: None
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
Family History
Family History: Diabetes (Father + sibling) and Other (Father: CHF; Sibling: cirrhosis)
Allergies / Home Medications
Allergies
Allergy/AdvReac Type Severity Reaction Status Date / Time
No Known Allergies Allergy Verified 10/01/24 21:01
Home Medications
�Medication �Instructions �Recorded �Confirmed �Last Taken �Type
insulin glargine 100 unit/mL (3 40 unit SC Daily Diabetes 10/03/24 10/04/24 Unknown History
mL) subcutaneous pen (Lantus
Solostar U-100 Insulin)
semaglutide 0.25 mg or 0.5 mg (2 0.5 mg SC QWEEK Diabetes 10/03/24 10/04/24 Unknown History
mg/1.5 mL) subcutaneous pen
injector (Ozempic)
insulin aspart U-100 100 unit/mL 10 unit SC TID Diabetes 10/04/24 10/04/24 Unknown History
(3 mL) subcutaneous pen
Review of Systems
-
History Source: Patient
All other systems: Negative unless noted
Vitals / Labs / Diagnostic Testing
Vital Signs
Temp Pulse Resp BP Pulse Ox
98.2 F 53 9 111/96 98
10/04/24 08:04 10/04/24 09:00 10/04/24 09:00 10/04/24 08:26 10/04/24 09:00
Lab Data
10/04/24 04:14
10/04/24 04:14
Laboratory Results
10/03/24 10/04/24
13:57 04:14
PT 15.6 H 16.1 H
INR 1.21 1.27
APTT 25.9 27.0
Diagnostic Testing:
Physical Exam
-
HEENT: Normocephalic and Anicteric
Cardiovascular: S1/S2 and Peripheral Edema (negative)
Respiratory: Clear, Wheeze (negative), Rales (negative), Rhonchi (negative) and Accessory Resp Muscle Use (negative)
GI: Soft, Non Distended, Non Tender and Normal Bowel Sounds
Neurology: AO x 3, Tremors (negative), Other (Lead Trainer strength: 4/5 right hand, 5/5 left hand; 5/5 bilateral plantar-/dorsiflexion) and Other (Normal H test: Pupils 3 mm on the left and brisk, abnormal pupil on the right with no reflex to light; able
to keep eyes closed against resistance; normal sensation to light touch in arms, legs and across the face in all 6 quadrants; mild right sided facial droop along the nasal-labial fold)
Skin: Warm and Dry
General: Respiratory Distress (negative), Comfortable, Fever (negative) and Chills (negative)
Assessment
-
Assessment: 74-year-old male with a past medical history of hypertension, hyperlipidemia, CAD s/p stenting to OM 2+ OM 3 (2012), DM type II, carotid artery disease and history of COVID-19 who presents with confusion, unsteadiness, right-sided
weakness and brain fog. In the ER he was afebrile to 98.4 �F, pulse rate 70, BP 139/66, and saturating 98% on room air. Initial labs showed mild leukocytosis to 11.4, Hb 13.4, creatinine 1.5, glucose 274, and troponin negative at 0.02. Initial CT
head showed an ill-defined focus of hypoattenuation within the left parietal�occipital lobe, measuring 2.2 cm concerning for an acute infarct. CTA head/neck showed an occluded right vertebral artery, with calcified plaque within both carotid bulbs
with approximate 60% stenosis on each side, and also calcified plaque within the cavernous and supraclinoid portion of each internal carotid artery. He was given aspirin +1 L NS 0.9% and admitted to telemetry for further care. Neurology and
vascular surgery consulted. Brain MRI on 10/02 slowed numerous scattered nonhemorrhagic acute/subacute infarcts throughout the left parietal�occipital and frontoparietal regions suspicious for embolic etiology. Carotid ultrasound performed on 10/03
showing an occluded right sided vertebral artery, with calcified plaque in the left carotid bulb and proximal ICA with >70% stenosis. Patient was consented for left carotid endarterectomy due to symptomatic left carotid artery stenosis, and this
procedure was performed on 10/03/2024 with bovine pericardial patch angioplasty and intraoperative EEG/SSEP monitoring. After this procedure, the patient developed sudden loss of right-sided motor function and altered mental status - stroke alert
called. NIH stroke scale was 17. Stat CT head showed no acute intracranial abnormality. CTA head/neck was obtained with a focal high-grade stenosis within the proximal left-sided cervical ICA which may be secondary to a small thrombus. Patient
was emergently brought back to the OR on 10/03/2024 for reexploration of the left neck, and underwent thrombectomy of left internal carotid artery with revision patch angioplasty, and thrombectomy of common carotid artery with ligation of the left
external carotid artery. Patient was then transferred to the ICU for further care and photonics engineer services consulted for additional management/recommendations.
Chronic medical conditions SOCIAL MEDIA MANAGER: hypertension, hyperlipidemia, CAD s/p stenting to OM 2/3 (2012), DM type II, carotid artery disease, history of COVID-19
Impression:
#Subacute left parietal�occipital infarct (likely embolic etiology given numerous scattered ischemic acute/subacute infarcts in left parietal�occipital and fronto-parietal regions on brain MRI 10/02/2024)
#Symptomatic left carotid artery stenosis s/p left carotid endarterectomy with bovine pericardial patch angioplasty and intraoperative EEG/SSEP monitoring (POD #1)
#Postoperative right upper extremity hemiplegia with altered mental status due to acute thrombosis involving the left internal carotid artery s/p left ICA thrombectomy with revision patch angioplasty, common carotid artery thrombectomy and left
external carotid artery ligation (POD #1)
#Leukocytosis (likely reactive at this juncture)
#Anemia
#Metabolic acidosis with preserved anion gap
#DM type II (uncontrolled with HbA1c: 12.3 on 10/02/2024) c/b hyperglycemia
#Former tobacco smoker
#CAD with history of stenting to OM2 + OM3 (2012)
#Personal history of COVID-19
Plan:
Postoperative surgical intensive care unit monitoring
Supplemental oxygen as needed to maintain SpO2 >90-94%
prn nebulized bronchodilators
Incentive spirometry encouraged 10x per hour for at least 4 hrs a day
Aspiration precautions
Pain control
Continue with aspirin, Plavix and atorvastatin
Per neurology, patient was not a candidate for tenecteplase once stroke alert was called given he just underwent a left-sided CEA
Hypercoagulable evaluation recommended and hematology consulted with recommendations appreciated
Maintain normoglycemia
PT/OT/WHEEL CLEANER
Permissive hypertension
Maintain normothermia
Neuro and vascular checks per protocol
Maintain MAP>65
Replete electrolytes with K>4, Mg>2
Maintain euglycemia with goal BG 140-180
Vascular surgery following-correspondence and operative notes reviewed
Transfuse blood products as needed to keep Hb>7g/dL, and plt>100k (given post-operative status and recent ischemic CVA)
DVT prophylaxis: LMWH
Early nutrition
Early mobilization
Code status: Full code
Critical care statement: A total of 38 minutes of critical care time was provided for this patient today. This includes management of unstable vital signs, evaluation of the patient at bedside, reviewing the patient's pertinent medical records
including radiographs, microbiology, laboratory evaluations, and discussion with primary team, consultants, pharmacy, nutrition, physical therapy, case management, charge nurse, critical care nursing, and respiratory therapy.
Data:
Brain MRI 10/02/2024: Numerous scattered nonhemorrhagic acute/subacute infarcts throughout the left parietal occipital and frontoparietal regions. Findings may be of embolic etiology.
CT head 10/04/2024: Stable small subacute left parieto-occipital infarct. Mild atrophy (stable)
--- NOTE | 2024-10-04 08:21 | W.PN.VS ---
Addendum entered and electronically signed by Daren Batista III, MD 10/04/24 09:07:
This patient was seen and examined in collaboration with GUEVARA See. I agree with the history and physical exam as well as the assessment and plan. I have the following additions:
Events noted
Patient comfortable this morning
Alert and oriented
Some right upper extremity weakness compared to the left on physical exam
Incision is clean and dry, left neck. Neck is soft
Plan as detailed
Signed:
Daren Batista III, MD
Vascular Surgery
[facility]
Original Note:
Today's Communication / Plan
-
Patient seen and examined at bedside with Dr. Daren Batista III, below plan reviewed with attending.
Assessment/Plan
-
Assessment: 74-year-old male POD #1 left carotid endarterectomy with bovine pericardial patch angioplasty, postoperatively developed onset of right arm weakness with hemineglect and confusion prompting stroke alert and CT angio with filling defect
in the distal left internal carotid artery beyond the end of the patch concerning for thrombus and patient was taken back emergently to the OR, he underwent thrombectomy of left internal carotid artery with revision of patch angioplasty and
thrombectomy of common carotid artery.
Plan:
Discontinue arterial line
Discontinue IV fluids
OOB to chair with progression to ambulation as tolerated
Appreciate neurology recommendations, repeat CT head scheduled for this morning
Will consult hematology for hypercoagulable workup and if they recommend oral anticoagulation versus dual antiplatelet therapy given concern for hypercoagulable state leading to thrombosis post left carotid endarterectomy
Continue ICU level care today
Subjective Data
-
Date of Service: October 04, 2024
Patient seen and examined at bedside, offers no complaints. Does endorse ongoing right hand weakness with now accompanying paresthesia, which is new post procedures, otherwise states he feels good. Reports well-managed postoperative pain. Denies
nausea, vomiting, headache, chills, fever, vision changes, aphasia, dysarthria, and dysphagia.
Objective Data
-
Vital Signs
Temp Pulse Resp BP Pulse Ox
98.2 F 71 13 136/56 96
10/04/24 08:04 10/04/24 06:35 10/04/24 06:35 10/03/24 19:28 10/04/24 06:35
Intake and Output
10/03/24 10/04/24 10/05/24
06:59 06:59 06:59
Intake Total 600 / 600 1158.0 / 1238.0 80 / 80
Output Total 1650 / 1950 300 / 300
Balance 600 / 600 -492.0 / -712.0 -220 / -220
Intake:
Oral fluids 600 / 600
IV fluids (Total) 1158.0 / 1238.0 80 / 80
Cardene 83.0 / 83.0 0 / 0
NSS 100 / 100
Neosynephrine 15 / 15
Nss 1,000 ml @ 80 mls/hr IV . 960 / 1040 80 / 80
[id number] Rx#:[id number]
Output:
Urine, Voided 165 / 1950 300 / 300
Other:
Number of approximated MODERATE 3
amounts of urine
Lab Results
10/04/24 04:14
10/04/24 04:14
Calcium 8.7 mg/dl (8.4-10.2) 10/04/24 04:14
Total Bilirubin Cancelled 10/01/24 21:22
AST Cancelled 10/01/24 21:22
ALT Cancelled 10/01/24 21:22
Alkaline Phosphatase Cancelled 10/01/24 21:22
Total Protein Cancelled 10/01/24 21:22
Albumin Cancelled 10/01/24 21:22
Physical Exam
-
No apparent distress, resting in bed comfortably
Left neck surgical incision clean dry and intact, suture line well-approximated, Exofin glue intact, no evidence of hematoma, tongue midline
No tachycardia
No dyspnea on room air
ABD flat, nondistended, nontender
Moves bilateral lower extremities to command and spontaneous with equal strength, right upper extremity hand grasp weaker than left and right upper extremity with incoordination, moves bilateral lower extremities spontaneously and command
[2024-10-04] MEDS: LOW STRENGTH ASPIRIN 81 MG PO (08:23)
[2024-10-04] MEDS: ZESTRIL 20 MG PO (08:23)
[2024-10-04] MEDS: NOVOLOG FLEXPEN-LOW RESISTANCE SC ×3 (08:37→17:15)
--- NOTE | 2024-10-04 08:38 | W.PN.CD ---
Today's Communication / Plan
-
Patient on aspirin and Plavix post left CEA followed by rehab and thrombectomy of left ICA with revision of patch angioplasty.
Continue postop care as directed by vascular surgery
Monitor blood pressure closely as Cardene weaned off. Patient was just given lisinopril oral at 20 mg
If additional blood pressure control required can increase lisinopril to 20 mg twice daily can also add amlodipine if needed
Impression / Plan
-
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 Miguel, his primary Vehicle And Equipment Cleaner) with coronary artery disease status-post SERENA to OM2/OM 3 (2012), hypertension, hyperlipidemia, IDDM, and carotid artery stenosis admitted with a CVA. The patient needs to undergo
carotid endarterectomy for severe ICA stenosis. Patient denies chest pain, shortness of breath, or palpitations.
Post left CEA
- Patient with left CEA 10/03/2024 with neurologic changes in recovery with evidence of new thrombus in left ICA requiring return to OR with thrombectomy of left internal carotid artery with revision of patch angioplasty and thrombectomy of left
common carotid artery.
- Patient reports feeling well. Still with some residual right hand weakness.
- Being transition from Cardene to oral meds
- Patient currently on aspirin and Plavix
CAD:
- Denies any anginal symptoms
- Continue aspirin.
- Continue atorvastatin 80 mg daily; LDL goal is less than 55 (currently 152).
- Of note, the patient has not followed up with Cardiology since 2020.
Hypertension:
- Lisinopril reinitiated. Monitor closely as oral meds were reinitiated and Cardene was weaned off.
Hyperlipidemia:
- high intensity statin recommended
- Goal LDL as above; on atorvastatin 80g.
IDDM:
- A1c 12
- Management as per primary team.
Physical Exam
Vital Signs/Labs
Vital Signs
Temp Pulse Resp BP Pulse Ox
98.2 F 64 13 152/52 96
06/10/25 08:04 10/04/24 08:23 10/04/24 06:35 10/04/24 08:23 10/04/24 06:35
10/03/24 10/04/24 10/05/24
06:59 06:59 06:59
Actual Weight 88.5 kg
10/04/24 04:14
10/04/24 04:14
PT 16.1 Sec (11.4-14.6) H 10/04/24 04:14
INR 1.27 10/04/24 04:14
APTT 27.0 Sec (23.4-35.0) 10/04/24 04:14
Triglycerides 126 mg/dl (10-149) 10/02/24 05:06
LDL Cholesterol, Calc 152 mg/dl 10/02/24 05:06
VLDL Cholesterol, Calc 25 mg/dl (0-30) 10/02/24 05:06
HDL Cholesterol 33 mg/dl 10/02/24 05:06
LAB Results
10/01/24
21:38
Troponin I 0.020
Physical Exam
Constitutional: No acute distress
EENT: Other (Left neck incision CDI)
Cardiovascular: Rhythm & rate is regular
Respiratory: Respiratory effort normal
GI: Soft
Neuro/Psych: Alert and Other (Right hand weakness)
Data Reviewed
-
Date of Service: October 04, 2024
Medical Decision Making: Reviewed Test Results
Echo: Report Reviewed by me
Medical Tests (PFT, Pathology etc): Report Reviewed by me
Labs: Labs Reviewed by me
--- NOTE | 2024-10-04 08:43 | W.PN.NEURO.1 ---
Addendum entered and electronically signed by Anand Montoya MD 10/04/24 13:13:
Studies reviewed.
I have personally examined the patient. I reviewed and agree with the AGRICULTURAL RESEARCHER's Note.
My addenda:
Awake, alert, interactive. No acute distress.
Speech intact.
Follows 2-step requests w/o difficulty. No tremor.
Extra-ocular movements grossly intact.
Facial movements full and symmetric. Hearing intact to normal conversational volume.
Normal UE movements bilaterally.
Neck: full ROM.
Chest: no dyspnea
Heart: no JVD
Ext: (-) Clubbing, (-) Cyanosis, (-) Edema
IMPRESSIONS/RECOMMENDATIONS:
Abrupt onset of right arm weakness following needed left CEA
Patient significantly improved from plegia likely due to re-accumulated thrombus. Expect continued improvement to near total recovery
combination aspirin and clopidogrel for at least 21 doses, then longer if indicated from Vascular Surgery
continue Atorvastatin
goal of normal glycemia
recheck CT of head to confirm absence of hemorrhagic conversion
D/W patient
Will continue to follow patient.
Original Note:
Today's Communication / Plan
-
-repeat HCT to ensure no hemorrhagic conversion
-continue aspirin 81 mg daily and clopidogrel 75 mg daily
-continue atorvastatin with LDL goal <70, currently 152
-goal normotension
-Hgb A1C 12.3, goal <7 and normoglycemia
-neurochecks and NIHSS per unit guidelines
-stoke education material to be given
-PT/OT/ST evaluations
-DVT prophylaxis
Neuro Assessment/Plan
Assessment
74 year old man with history of coronary artery disease status post stents in 2012, insulin-dependent diabetes, HTN with numerous scattered nonhemorrhagic acute/subacute infarcts throughout the left parietal occipital and frontoparietal regions due
to symptomatic left carotid bulb 75% s/p L CEA (10/03/2024) postoperatively developed worsening right sided weakness and expressive aphasia prompting stroke alert and CT angio with filling defect in the distal left internal carotid artery beyond the
end of the patch concerning for thrombus and patient was taken back emergently to the OR, he underwent thrombectomy of left internal carotid artery with revision of patch angioplasty and thrombectomy of common carotid artery.
Head CT (10/02/2024): small left occipital hypodensity, MCA territory, wedge shaped with cortical involvement
CTA head/neck (10/02/2024):L carotid bulb 75%, occlusion of a small L parietal branch
Brain MRI (10/02/2024): numerous scattered nonhemorrhagic acute/subacute infarcts throughout the left parietal occipital and frontoparietal regions
Carotid Ultrasound (10/03/2024):
RIGHT: Calcified plaque is identified in the carotid bulb and proximal internal carotid artery. Carotid velocity profile is consistent with less than 50% internal carotid artery stenosis. Acoustic shadowing from calcified plaque limits full
evaluation of the internal carotid artery and therefore correlation with CT angiography from October 02, 2024 is recommended. The vertebral artery is occluded.
LEFT: Calcified plaque is identified in the carotid bulb and proximal internal carotid artery. Carotid velocity profile is consistent with a greater than 70% internal carotid artery stenosis. Vertebral artery flow is antegrade.
CTA Head (10/03/2024): There is high-grade stenosis of the bilateral cavernous and paraclinoid ICAs, more pronounced on the left and unchanged from prior.
CTA Neck (10/03/2024): Postoperative changes of left carotid endarterectomy without significant residual stenosis of the left carotid bifurcation, however there is focal high-grade stenosis within the proximal cervical ICA which may be secondary to
small thrombus.
There is unchanged right vertebral artery occlusion with reconstitution of the V3 segment focal occlusion of the V4 segment. Left dominant vertebral artery.
There is unchanged atherosclerotic calcification of the right carotid bifurcation/proximal ICA with resultant approximately 60% stenosis by [employer] criteria.
Head CT (10/04/2024): Stable small subacute left parieto-occipital infarct.Mild atrophy. Stable
Labs: Cholesterol 210, LDL 152, Hgb A1C 12.3
Plan
Impressions:
1. acute/subacute scattered nonhemorrhagic acute/subacute infarcts throughout the left parietal occipital and frontoparietal regions
2. thrombus in the left internal carotid artery with an occluded left external carotid artery requiring revascularization
-repeat HCT to ensure no hemorrhagic conversion, HCT reviewed and stable
-continue aspirin 81 mg daily and clopidogrel 75 mg daily
-continue atorvastatin with LDL goal <70, currently 152
-goal normotension
-Hgb A1C 12.3, goal <7 and normoglycemia
-neurochecks and NIHSS per unit guidelines
-stoke education material to be given
-PT/OT/ST evaluations
-DVT prophylaxis
Plan of care discussed with Dr. Montoya, nurse and patient, all questions encouraged and answered.
Subjective/Objective
Subjective Data
Date of Service: October 04, 2024
Feels much better from yesterday. Speech is back to normal. Able to move RUE but still having difficulty with right hand plant utility person. Denies nausea, vomiting, headache, chills, fever, vision changes, aphasia, dysarthria, and dysphagia.
Objective Data
Vital Signs
Temp Pulse Resp BP Pulse Ox
98.2 F 64 13 152/52 96
10/04/24 08:04 10/04/24 08:23 10/04/24 06:35 10/04/24 08:23 10/04/24 06:35
Lab Results
10/04/24 04:14
10/04/24 04:14
PT 16.1 Sec (11.4-14.6) H 10/04/24 04:14
INR 1.27 10/04/24 04:14
APTT 27.0 Sec (23.4-35.0) 10/04/24 04:14
Sodium 141 mmol/L (135-145) 10/04/24 04:14
Potassium 4.6 mmol/L (3.5-5.1) 10/04/24 04:14
BUN 16 mg/dl (9-20) 10/04/24 04:14
Glucose 169 mg/dl (70-99) H 10/04/24 04:14
Calcium 8.7 mg/dl (8.4-10.2) 10/04/24 04:14
LDL Cholesterol, Calc 152 mg/dl 10/02/24 05:06
Patient Allergies
No Known Allergies Allergy (Verified 10/01/24 21:01)
Physical Exam
-
General: No Apparent Distress, Comfortable and Appears Stated Age
Eyes: Other (pale retina OD)
HEENT: Normocephalic and Atraumatic
Neck: Full Range of Motion
Respiratory: No Dyspnea
Cardiac: No JVD
GI: Non-distended
Skin: Warm and Dry
Extremities: No Clubbing, No Cyanosis and No Edema
Psych: Intact Judgement/Insight
Extended Neurological Exam
Mood & Affect: Mood Unremarkable
Attention Span & Concentration: Awake, Alert and Interactive
Memory: Unremarkable
Tremor: Hand Tremor Absent and Head Tremor Absent
Speech: Quality Unremarkable, Quantity Unremarkable, Rate of Production Unremarkable and Unable to Assess
Cranial Nerve II: Left Eye: Visual Crockett Grossly Intact
Cranial Nerve II: Right Eye: Visual Crockett Reduced
Cranial Nerves III, IV, : Extraocular Movement: Reduced (bilaterally)
Cranial Nerve VII: Facial Symmetry: Normal Facial Symmetry
Cranial Nerve VIII: Hearing: Unremarkable Hearing to Normal Conversational Volume
Cranial Nerves IX, X: Palate Movement: Palate Elevation Symmetric
Cranial Nerve XII: Tongue Protusion: Midline
Muscle Strength, Overall: Reduced on Right (RUE 5-/5 with reduced hand plant utility person)
Muscle Bulk & Tone: Bulk Unremarkable and Tone Unremarkable
Pronator Drift: Drift in Right Upper Extremity
Data Reviewed
-
CT-A: Report Reviewed and Image Reviewed
CT Head: Report Reviewed and Image Reviewed
Labs: Report Reviewed
Lipid Profile: Report Reviewed
HgbA1C: Report Reviewed
Reviewed with: Physician, Nurse and Patient
Old Records: Summarized
[2024-10-04] MEDS: PLAVIX 75 MG PO (08:47)
--- NOTE | 2024-10-04 09:26 | PTCARENOTE ---
recd pt neuro handoff and NIHSS completed. in good spirits, conversant. pt has some pre-existing R visual loss of focus, scored as noted, finger to nose portion perhaps limited by depth perception issues. R hand is weaker, c/o some mild sensation
deficit but stronger than overnight as reported by patient and previous RN. Art line dcd per order, fluids capped, to CT as ordered. Stood in CT scan to transfer, gait steady. aware of plans for the day. neuro exams maintained hourly. ordered
and awaiting breakfast. Seen by cardiology, neurology and vasc. surgery.
[2024-10-04] MEDS: NOVOLOG FLEXPEN 8 UNITS SC ×2 (09:31→12:24)
[2024-10-04 11:42] LABS: Glucose - Point of Care 117 mg/dl (70-99)
--- NOTE | 2024-10-04 11:54 | CM ---
Initial assessment completed with patient who lives alone in a 2nd floor apartment in elevator building. No stairs to enter. 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 No in-home services. Does have a SPC in the home. Was in the [employer].
Support system is friends and lives in a Senior apartment building. No HC-POA. PCP is Dr. Mervin Ames and Pharmacy is [facility] on [address] in . Discharge POC: Prior to transfer to ICU, previous therapy note recommended Acute Rehab. Therapy
recommended new orders. Will await updated therapy recommendation.
--- NOTE | 2024-10-04 13:00 | PTCARENOTE ---
No change. Seen by PT/OT, out in chair, visitors bedside. Presently back in bed. Diabetic ed rounded. Neuro checks continue. Bed and chair alarm in use, pt can be somewhat impulsive. Remains with R hand weakness, encouraged to use as much as
able (as per OT). Resting.
--- NOTE | 2024-10-04 13:01 | CON.ONC ---
Consultation
-
Date Consultation Requested: 10/03/24
Date Consultation Performed: 10/04/24
Impression
Impression
74-year-old male, former smoker (quit 2019) with PMH of CAD s/p stent (2012), essential hypertension, hyperlipidemia, poorly controlled IDDM, who presented on 10/02 with right-sided extremity weakness, comprehension issues and visual hallucinations.
CTA was in favor of acute left occipital parietal stroke. Patient mentions he decided to stop taking aspirin 81mg couple months ago because he thought it was not doing much for him. Also mentions history of strokes and IA in mother, father, and
sister. We have been consulted for evaluation of possible hypercoagulable state.
Acute left occipitoparietal nonhemorrhagic stroke s/p left CEA
- Patient with left CEA 10/03/2024 with neurologic changes in recovery with evidence of new thrombus in left ICA requiring return to OR with thrombectomy of left internal carotid artery with revision of patch angioplasty and thrombectomy of left
common carotid artery.
- Right hand weakness has significantly improved.
- Continue aspirin and Plavix. Based on recent literature, there is no evidence of superiority of oral anti-coagulants over DAPT for patients with idiopathic or cardioembolic stroke without history of afib.
- Patient's underlying comorbidities including IDDM, HLD, HTN, CAD place him at an increased risk for strokes and hypercoagulability. He also report a +brielle family history of clots (?). We recommend checking anticoagulation panel as OP as results
will not be accurate at this time given post-op setting.
History of CAD
- Cardiology following- Continue aspirin
- Continue atorvastatin
- Management per cardiology and primary team
Essential Hypertension
- Continue Lisinopril
- Management per cardiology and primary team
Hyperlipidemia
- Continue atorvastatin
IDDM
- [id number]
- Management as per primary team.
We will sign off. If there is any other quetions, please contact our office.
Plan
Plan
Continue DAPT with aspirin and plavix.
Hypercoagulation panel as OP.
We will sign off.
Patient History
History of Present Illness
Patient is a 74-year-old male, former smoker (quit about 5 years ago) with PMH of CAD s/p stent (2012), hypertension, hyperlipidemia, poorly controlled IDDM, who presented on 10/02 with right-sided extremity weakness, comprehension issues and visual
hallucinations. Initial CTA showed bilateral carotid stenosis with high grade left ICA stenosis and evidence of acute left occipitoparietal nonhemorrhagic stroke. Additional stenosis noted in right vertebral artery and 75% stenosis of left ICA at
bulb. Brain MRI showed numerous scattered nonhemorrhagic acute/subacute infarcts throughout the left parietal occipital and frontoparietal regions possibly of embolic etiology. Patient was started on aspirin and Lipitor 40. Neurology and vascular
surgery were consulted and the patient underwent left carotid endarterectomy for severe left ICA stenosis on 10/03. While in the recovery room, he was noted to experience requiring right upper extremity weakness and stroke alert was called. His head
CT demonstrated no evidence of intracranial bleed however right upper extremity strength deteriorated while in CT room.
Subsequent head CTA showed high-grade stenosis of the bilateral cavernous and paraclinoid ICAs, more pronounced on the left and neck CTA showed focal high-grade stenosis within the proximal cervical ICA, possibly secondary to small thrombus. Patient
was emergently taken back to OR for thrombectomy of left internal carotid artery with revision patch angioplasty and thrombectomy of common carotid artery.
We have been consulted for evaluation of possible hypercoagulable state.
Past-Medical/Surgical History
HLD, HTN, CAD, DMII
Patient Medication
�Medication �Instructions �Recorded �Confirmed �Last Taken �Type
insulin glargine 100 unit/mL (3 40 unit SC Daily Diabetes 10/03/24 10/04/24 Unknown History
mL) subcutaneous pen (Lantus
Solostar U-100 Insulin)
semaglutide 0.25 mg or 0.5 mg (2 0.5 mg SC QWEEK Diabetes 10/03/24 10/04/24 Unknown History
mg/1.5 mL) subcutaneous pen
injector (Ozempic)
insulin aspart U-100 100 unit/mL 10 unit SC TID Diabetes 10/04/24 10/04/24 Unknown History
(3 mL) subcutaneous pen
Active Medications
Generic Name Dose Route Start Last Admin
Trade Name Freq PRN Reason Stop Dose Admin
Acetaminophen 650 mg 10/02/24 03:24
Acetaminophen 650 Mg Rectal Suppository RECTAL 10/30/24 03:23
Q4HPRN PRN
IRIZARRY, mild pain, or temp >100.4F
Acetaminophen 650 mg 10/03/24 12:40 10/04/24 05:01
Acetaminophen 325 Mg Tablet PO 10/31/24 12:39 650 mg
Q4HPRN PRN Administration
mild pain or temp >/= 100.4 F
Aspirin 81 mg 10/02/24 08:00 10/04/24 08:23
Aspirin 81 Mg Chewable Tablet PO 10/30/24 07:59 81 mg
DAILY NEFTALI Administration
Atorvastatin Calcium 80 mg 10/02/24 18:00 10/03/24 18:42
Atorvastatin (Lipitor) 80 Mg Tablet PO 10/30/24 17:59 80 mg
QPM NEFTALI Administration
Bisacodyl 10 mg 10/03/24 12:40
Bisacodyl 10 Mg Rectal Suppository RECTAL 10/31/24 12:39
DAILYPRN PRN
constipation
Clopidogrel Bisulfate 75 mg 10/04/24 08:00 10/04/24 08:47
Clopidogrel 75 Mg Tablet PO 11/01/24 07:59 75 mg
DAILY NEFTALI Administration
Dextrose 12.5 grams 10/02/24 04:00
Dextrose 50% (0.5 Grams/Ml) 50 Ml Syringe IV 10/30/24 03:59
[id number] PRN
hypoglycemia
Protocol
Enoxaparin Sodium 40 mg 10/02/24 18:00 06/09/25 18:42
Enoxaparin Sodium 40 Mg/0.4 Ml Syringe SC 10/30/24 17:59 40 mg
QPM NEFTALI Administration
Glucagon 1 mg 10/02/24 04:00
Glucagon 1 Mg Vial IM 10/30/24 03:59
PRN PRN
hypoglycemia - no IV access
Protocol
Hydromorphone HCl 0.5 mg 10/03/24 12:40
Hydromorphone 0.5 Mg/0.5 Ml Syringe IV 10/17/24 12:39
Q4HPRN PRN
severe pain
Insulin Glargine 30 units/ 0.3 mls @ 0 mls/hr 10/02/24 22:00 10/03/24 22:13
Device SC 10/30/24 21:59 0.3 mls
HS NEFTALI Administration
As Directed
Insulin Aspart 0 units 10/02/24 07:30 10/04/24 11:43
Insulin Aspart Low Resistance 300 Units/3 Ml Pen.Injctr SC 10/30/24 07:29 Not Given
AC NEFTALI
Protocol
Insulin Aspart 8 units 10/02/24 07:30 10/04/24 12:24
Insulin Aspart (Novolog) 100 Units/Ml 3 Ml Flexpen SC 10/30/24 07:29 8 units
AC NEFTALI Administration
Lisinopril 20 mg 10/02/24 08:00 10/04/24 08:23
Lisinopril 20 Mg Tablet PO 10/30/24 07:59 20 mg
DAILY NEFTALI Administration
Oxycodone HCl 5 mg 10/03/24 12:40
Oxycodone 5 Mg Regular Release Tablet PO 10/17/24 12:39
Q4HPRN PRN
moderate pain
Sodium Chloride 0 flush 10/02/24 01:00 10/02/24 01:25
Sodium Chloride 0.9% (Flush) Syringe IV 10/30/24 00:59 1 flush
PER PROTOCOL NEFTALI Administration
Review of Systems
-
Constitutional: Reports No Symptoms
Respiratory: Reports No Symptoms
Cardiac: Reports No Symptoms; Denies Chest Pain, Palpitations or Syncope
GI: Reports No Symptoms
Musculoskeletal: Reports Other (Mentions right hand feels heavy)
Neuro: Reports No Symptoms
Psych: Reports No Symptoms
Physical Exam
-
General: Well Developed, No Apparent Distress and Comfortable
HEENT: Moist Mucous Membranes
Cardiology: Normal Sinus Rhythm, S1 and S2
Pulmonary: Clear
GI: Soft and Normal Bowel Sounds
Musculoskeletal: No Clubbing, No Cyanosis and No Edema
Extremities: Pulses Present
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
Skin: Warm, Dry and Normal Turgor
Psych: Calm
Labs
Lab Results
WBC 15.5 10^3/uL (4.8-10.8) H 10/04/24 04:14
RBC 3.91 10^6/uL (4.70-6.10) L 10/04/24 04:14
Hgb 11.5 g/dL (13.0-18.0) L 10/04/24 04:14
Hct 33.6 % (39.0-52.0) L 10/04/24 04:14
MCV 85.9 fL (80.0-94.0) 10/04/24 04:14
MCH 29.4 pg (27.0-31.0) 10/04/24 04:14
MCHC 34.2 g/dL (33.0-37.0) 10/04/24 04:14
RDW 13.1 % (11.5-14.5) 10/04/24 04:14
Plt Count 178 10^3/uL (130-400) 10/04/24 04:14
MPV 13.0 fL (7.4-10.4) H 10/04/24 04:14
Abs Immat Gran (auto) 0.0 10^3/uL (0-0.05) 10/01/24 21:22
Absolute Neuts (auto) 8.6 10^3/uL (1.4-6.5) H 10/01/24 21:22
Absolute Lymphs (auto) 1.8 10^3/uL (1.2-3.4) 10/01/24 21:22
Absolute Monos (auto) 0.8 10^3/uL (0.1-0.6) H 10/01/24 21:22
Absolute Eos (auto) 0.1 10^3/uL (0-0.7) 10/01/24 21:22
Absolute Basos (auto) 0.1 10^3/uL (0-0.2) 10/01/24 21:22
Immature Gran % 0.3 % (0-0.5) 10/01/24 21:22
Neutrophils % 75.6 % (42.2-75.2) H 10/01/24 21:22
Lymphocytes % 15.9 % (20.5-51.1) L 10/01/24 21:22
Monocytes % 6.8 % (1.7-9.3) 10/01/24 21:22
Eosinophils % 0.8 % (0-6) 10/01/24 21:22
Basophils % 0.6 % (0-2) 10/01/24 21:22
Creatinine 0.7 mg/dL (0.7-1.3) 10/04/24 04:14
Vital Signs
Vital Signs
Temp Pulse Resp BP Pulse Ox
98.1 F 53 9 111/96 98
10/04/24 12:18 10/04/24 09:00 10/04/24 09:00 10/04/24 08:26 10/04/24 09:00
--- NOTE | 2024-10-04 14:00 | W.PN.HOSP.TC ---
Today's Communication/Plan
-
.
Assessment / Plan
Assessment / Plan
Physical Exam
-
General: Well Developed and Well Nourished
HEENT: Moist Mucous Membranes, Anicteric and PERRLA
Respiratory: Clear to Auscultation and Non-Labored Respirations; Negative Wheezes, Rales or Rhonchi
Cardiac: Regular Rhythm and S1/S2;
GI: Soft, Nontender, Nondistended and Normal Bowel Sounds
Musculoskeletal: No joint swelling. �Negative Edema, Left Lower Extrem
Skin: Warm, Dry and no rash
Neuro: Awake and AO x 3, non-focal exam.
Psych: Calm
# Numerous scattered nonhemorrhagic acute/subacute infarcts throughout the left parietal occipital and frontoparietal regions
He is feeling better
No new symptoms
s/p Left carotid endarterectomy 10/[address] Montalvo then later in recovery, patient experienced right arm weakness/hemineglect/confusion
S/p stroke alert/CT angio with filling defect in the distal left internal carotid artery concerning for thrombus, status post thrombectomy of the left internal carotid artery with revision of patch angioplasty/thrombectomy of common carotid artery
on 10/[address] Montalvo
Patient continues to improve
c/w dual anti-plt therapy, control BP
for oncology evaluation for hypercoagulable state. Per oncology, continue with dual antiplatelet therapy in the setting of recurrent thrombotic stroke/none cardioembolic source
Appreciate vascular, oncology and cardiology help
# DM II -
Poorly controlled. HGB A1C around 12
Per pt: take Lantus 40-50 hs at home with NovoLog 15 tidac
-BG low, will adjust doses \\
# CAD
No chest pain or sob
# Essential HTN
c/w Lisinopril
Add PRN hydralazine
# JOSE ALFREDO, resolving
# Mild leukocytosis
Total time spent to see the patient, examine the patient, review data and lab result, discuss treatment plan with patient, nursing staff around 55 minutes
Anticipated Discharge: 24 - 48 hours
Subjective/Interval History
-
Date of Service: October 04, 2024
He feels better
Moving his right arm more
Denies chest pain or sob
Objective Data
-
Labs:
Laboratory Results
10/04/24
04:14
WBC 15.5 H
Hgb 11.5 L
Hct 33.6 L
Plt Count 178
PT 16.1 H
INR 1.27
APTT 27.0
Sodium 141
Potassium 4.6
Chloride 116 H
Carbon Dioxide 19 L
BUN 16
Creatinine 0.7
Glucose 169 H
Calcium 8.7
Vital Signs:
Vital Signs
Temp Pulse Resp BP Pulse Ox
98.1 F 53 9 111/96 98
10/04/24 12:18 10/04/24 09:00 10/04/24 09:00 10/04/24 08:26 10/04/24 09:00
I&O
10/03/24 10/04/24 10/05/24
06:59 06:59 06:59
Intake Total 600 / 600 1158.0 / 1238.0 520 / 520
Output Total 1650 / 1950 300 / 300
Balance 600 / 600 -492.0 / -712.0 220 / 220
--- NOTE | 2024-10-04 14:20 | PTCARENOTE ---
10/04/2024 DIABETES EDUCATION CONSULT
I met with Daren to review diabetes management.
I educated on physiology of T2D, organ damage, managing with medications, monitoring BG, nutrition, activity, sleep and managing stress. I reinforced signs of hyperglycemia, hypoglycemia and hypoglycemia protocol; BS parameters and recommended HbA1c
goals, glucometer and CGM instructions, glucose tracker, medic alert bracelet and outpatient DSME program. Written material provided.
Patient has used CGM in past, states the alarms beeped all the time. I explained this is because his glucose levels were too high or low. He has used a glucose meter at home. I provided a Contour Next sample meter kit, verbally reviewed glucose
monitoring instructions.
We reviewed his HbA1c values at over 14% in 04/2023 and then 7.2% in 05/2024 and now at 12.3%. He originally states he is unsure why the HbA1c decreased and then increased again, then admits to missing medications and eating poorly. He eats a lot of
pizza, discussed the pizza effect.
We discussed normal target glucose ranges and a monitoring schedule 15 minutes before each meal with Novolog, and preprandial AM and/or bedtime as recommended by MD. I educated on proper insulin storage, he was keeping insulin pens in refrigerator
after use. Discussed proper insulin injection technique.
Encouraged patient to follow up with his PCP for post d/c appointment and to monitor medication and blood glucose levels. Provided list of endocrinologists if desired, to contact insurance company to verify in network status. Patient verbalized
understanding.
--- NOTE | 2024-10-04 17:13 | PTCARENOTE ---
oob to chair. impulsive at times, bed and chair alarm in use. gait was slightly unsteady on way to bathroom for urine, didn't use RW and required contact guard occas steadying from staff. neuro unchanged. Encouraged to use R hand as able.
Expressing frustration, support given.
[2024-10-04 17:14] LABS: Glucose - Point of Care 69 mg/dl (70-99)
[2024-10-04] MEDS: LIPITOR 80 MG PO (17:29)
[2024-10-04] MEDS: LOVENOX 40 MG SC (17:29)
[2024-10-04 17:38] LABS: Glucose - Point of Care 89 mg/dl (70-99)
[2024-10-04] MEDS: NOVOLOG FLEXPEN SC (18:05)
[2024-10-04 20:06] LABS: Glucose - Point of Care 199 mg/dl (70-99)
--- NOTE | 2024-10-04 20:08 | PTCARENOTE ---
Assumed care of pt at 1900. Pt is A/O x3-4, occasionally needs to be reoriented to situation and needs extra time to think about things and answer questions, forgetful at times. Able to follow commands. See Stroke/NeuroCheck flowsheet for full neuro
assessment details. NIHSS done in tandem with offgoing RN. Pt scored 2 for ataxia in RUE and vision deficit in right eye but the vision issue is not new for patient and was present before admission per pt. Pt able to ambulate with standby assistance
to BR, slightly unsteady on his feet but does not need an assistive device. SR 70s on monitor, 99% on RA. See nursing shift assessment flowsheet for full physical assessment details. Pt denies any pain at this time. Call schumacher and personal items
within reach. Bed alarm activated.
[2024-10-04 21:39] LABS: Glucose - Point of Care 184 mg/dl (70-99)
[2024-10-04] MEDS: LANTUS 0.2 UNITS SC (21:39)
[2024-10-04] MEDS: APRESOLINE 10 MG IV (22:25)
--- NOTE | 2024-10-04 22:29 | PTCARENOTE ---
Pt's BP has been elevated, 170s-180s systolic, both arms have been reading high, discussed with ICU LABOR OPERATOR Rodriguez Castillo, RICHARDN hydralazine ordered, Cardene re-ordered as well in case that is needed to control pt's BP. See EMAR for hydralazine
administration details.
[2024-10-05] VITALS (35 sets, daily range): BP systolic 82–181; BP diastolic 37–73; PULSE 69; O2SAT 97; BMI 26.9
--- NOTE | 2024-10-05 00:56 | PTCARENOTE ---
Midnight assessment unchanged. Pt's BP initially improved to SBP in 150s after receiving hydralazine, however it then increased again. Nicardipine drip started at 0050. SB 50s-SR 60s on monitor.
[2024-10-05] MEDS: CARDENE 200 IV (03:39)
[2024-10-05 04:37] LABS: Glucose - Point of Care 150 mg/dl (70-99)
[2024-10-05 05:21] LABS: Blood Urea Nitrogen 19 mg/dl (9-20); Calcium 9.1 mg/dl (8.4-10.2); Carbon Dioxide 23 mmol/L (22-30); Chloride 115 mmol/L (98-107); Estimated Creatinine Clearance 100 ml/min; Glucose 148 mg/dl (70-99); Potassium 4.5 mmol/L (3.5-5.1); Sodium 142 mmol/L (135-145); eGFR > 60.00
[2024-10-05 05:23] LABS: Hematocrit 33.2 % (39.0-52.0); Hemoglobin 11.3 g/dL (13.0-18.0); Mean Corpuscular Hgb 29.7 pg (27.0-31.0); Mean Corpuscular Volume 87.1 fL (80.0-94.0); Mean Platelet Volume 13.2 fL (7.4-10.4); Platelet Count 170 10^3/uL (130-400); Red Blood Cell Count 3.81 10^6/uL (4.70-6.10); Red Cell Dist. Width 13.1 % (11.5-14.5); White Blood Cell Count 10.7 10^3/uL (4.8-10.8)
--- NOTE | 2024-10-05 06:37 | PTCARENOTE ---
Addendum entered by Daysi Carrizales RN 10/05/24 06:38:
Cardene titrated off at 0545, pt's BP dropped to 109 systolic, and then continued to drop below 100. Most recent BP 123/55.
Original Note:
0400 assessment unchanged. Continues on Cardene drip. SB 50s on monitor.
--- NOTE | 2024-10-05 07:20 | W.PN.HOSP.TC ---
Today's Communication/Plan
-
Consult Dr Max
Add Nifedipine
Out of ICU
Assessment / Plan
Assessment / Plan
Physical Exam
-
General: Well Developed and Well Nourished
HEENT: Moist Mucous Membranes, Anicteric and PERRLA
Respiratory: Clear to Auscultation and Non-Labored Respirations; Negative Wheezes, Rales or Rhonchi
Cardiac: Regular Rhythm and S1/S2;
GI: Soft, Nontender, Nondistended and Normal Bowel Sounds
Musculoskeletal: No joint swelling. �Negative Edema, Left Lower Extrem
Skin: Warm, Dry and no rash
Neuro: Awake and AO x 3, non-focal exam. Able to follow commands, mild incoordination RUE, no pronator drift B/L
Psych: Calm
# Numerous scattered nonhemorrhagic acute/subacute infarcts throughout the left parietal occipital and frontoparietal regions
He is feeling better
No new symptoms
s/p Left carotid endarterectomy 10/[address] Montalvo then later in recovery, patient experienced right arm weakness/hemineglect/confusion
S/p stroke alert/CT angio with filling defect in the distal left internal carotid artery concerning for thrombus, status post thrombectomy of the left internal carotid artery with revision of patch angioplasty/thrombectomy of common carotid artery
on 10/[address] Montalvo
Patient continues to improve
c/w dual anti-plt therapy, control BP
for oncology evaluation for hypercoagulable state. Per oncology, continue with dual antiplatelet therapy in the setting of recurrent thrombotic stroke/none cardioembolic source
Appreciate vascular, oncology and cardiology help
# DM II -
Better controlled. HGB A1C around 12
Per pt: take Lantus 40-50 hs at home with NovoLog 15 tidac
-BG low, will adjust doses \\
# CAD
No chest pain or sob
# Essential HTN
c/w Lisinopril
Add Nifedipine, he was placed on Nicardipine gtt last evening
Add PRN hydralazine
# JOSE ALFREDO, resolving
# Mild leukocytosis, resolving
Afebrile
Total time spent to see the patient, examine the patient, review data and lab result, discuss treatment plan with patient, nursing staff around 55 minutes
Anticipated Discharge: 24 - 48 hours
Subjective/Interval History
-
Date of Service: October 05, 2024
No chest pain
No headache
No sob
d/w nursing staff, off nicardipine gtt
Objective Data
-
Labs:
Laboratory Results
10/05/24
04:32
WBC 10.7
Hgb 11.3 L
Hct 33.2 L
Plt Count 170
Sodium 142
Potassium 4.5
Chloride 115 H
Carbon Dioxide 23
BUN 19
Creatinine 0.7
Glucose 148 H
Calcium 9.1
Vital Signs:
Vital Signs
Temp Pulse Resp BP Pulse Ox
99.5 F 54 14 123/55 98
10/05/24 03:35 10/05/24 06:30 10/05/24 06:30 10/05/24 06:30 10/05/24 06:30
I&O
10/04/24 10/05/24 10/06/24
06:59 06:59 06:59
Intake Total 1158.0 / 1238.0 1150.0 / 1150.0
Output Total 1650 / 1950 300 / 300
Balance -492.0 / -712.0 850.0 / 850.0
[2024-10-05 07:50] LABS: Glucose - Point of Care 146 mg/dl (70-99)
--- NOTE | 2024-10-05 07:56 | W.PN.VS ---
Today's Communication / Plan
-
Patient seen and examined at bedside with Dr. Munir Montalvo M.D., below plan reviewed with attending.
Assessment/Plan
-
Assessment: 74-year-old male POD #2 left carotid endarterectomy with bovine pericardial patch angioplasty, postoperatively developed onset of right arm weakness with hemineglect and confusion prompting stroke alert and CT angio with filling defect
in the distal left internal carotid artery beyond the end of the patch concerning for thrombus and patient was taken back emergently to the OR, he underwent thrombectomy of left internal carotid artery with revision of patch angioplasty and
thrombectomy of common carotid artery.
Plan:
PT/OT
Appreciate hematology recommendations will continue DAPT for stroke protocol of Plavix 75 mg p.o. daily and aspirin 81 mg p.o. daily
Subjective Data
-
Date of Service: October 05, 2024
Patient seen and examined at bedside, continues to report improvement in right hand weakness. Denies nausea, vomiting, fever, chills, cough, and headache.
Objective Data
-
Vital Signs
Temp Pulse Resp BP Pulse Ox
97.9 F 54 14 123/55 98
10/05/24 07:36 10/05/24 06:30 10/05/24 06:30 10/05/24 06:30 10/05/24 06:30
Intake and Output
10/04/24 10/05/24 10/06/24
06:59 06:59 06:59
Intake Total 1158.0 / 1238.0 1150.0 / 1150.0
Output Total 1650 / 1950 300 / 300
Balance -492.0 / -712.0 850.0 / 850.0
Intake:
Oral fluids 840 / 840
IV fluids (Total) 1158.0 / 1238.0 310.0 / 310.0
Cardene 83.0 / 83.0 150.0 / 150.0
NSS 100 / 100
Neosynephrine 15 / 15
Nss 1,000 ml @ 80 mls/hr IV . 960 / 1040 160 / 160
[id number] Rx#:[id number]
Output:
Urine, Voided 1649 / 1950 300 / 300
Other:
Number of approximated MODERATE 1
amounts of urine
Number of approximated LARGE 1
amounts of urine
Lab Results
10/05/24 04:32
10/05/24 04:32
Calcium 9.1 mg/dl (8.4-10.2) 10/05/24 04:32
Total Bilirubin Cancelled 10/01/24 21:22
AST Cancelled 10/01/24 21:22
ALT Cancelled 10/01/24 21:22
Alkaline Phosphatase Cancelled 10/01/24 21:22
Total Protein Cancelled 10/01/24 21:22
Albumin Cancelled 10/01/24 21:22
Physical Exam
-
No apparent distress, resting in bed comfortably
Left neck surgical incision clean dry and intact, suture line well-approximated, Exofin glue intact, no evidence of hematoma
No tachycardia
No dyspnea on room air
ABD flat, nondistended, nontender
Moves bilateral lower extremities to command and spontaneous with equal strength, right upper extremity hand grasp weaker than left and right upper extremity with incoordination, moves bilateral lower extremities spontaneously and command
--- NOTE | 2024-10-05 07:57 | PN.DE.MGMTRT ---
Insulin Management
- -
10/05/2024: Diabetes Management Consult Follow up
Patient admitted with weakness, intermittent numbness bilateral arms and legs, some expressive aphasia or speech dysarthria type symptoms. PMH: CAD s/p stents, IDDM, HTN, GERD, HCL. Prior to admission he was taking Lantus 40 BID and Metformin 500
mg BID, and novolog 10 to 15 units @ each meal. A1C 12.3%, Cr 1.2, eGFR >60.
POD 2 s/p L carotid endarterectomy. Patient is awake and alert, OOB in chair, able to discuss diabetes care. States he has a meter but not that reliable, he had a sensor but needs a new one. Will provide new Contour Next meter.
10/04 Premeal range was 89 to 184, HS glucose was 184. Fasting 147 this AM.
10/05 Dr. Mariee has reduced insulin, from Lantus 30 units @ HS to Lantus 20 units @ HS and NovoLog from 8 units AC to 4 units AC and low corrective AC.
Will follow for further needed adjustments to insulin regimen.
Discussed with nurse.
Will follow
Diabetes History
- -
Type of Diabetes: 2 requiring insulin
Pre-Admission Diabetes Regimen
10/05/24
04:32
Creatinine 0.7
Lab Results
Hemoglobin A1c 12.3 % (4.0-5.6) H 10/02/24 05:06
Insulin Pump Settings
IP Diabetes Regimen
10/04/24 10/04/24 10/04/24
11:41 17:03 17:26
Glucose
POC Glucose 117 H 69 L 89
10/04/24 10/04/24 10/05/24
20:04 21:38 04:32
Glucose 148 H
POC Glucose 199 H 184 H
10/05/24 10/05/24
04:33 07:29
Glucose
POC Glucose 150 H 146 H
Meal type: Dinner
Meal type: Lunch
Meal type: Breakfast
Amount consumed: 65%
Amount consumed: 50%
Amount consumed: 100%
Patient Education
--- NOTE | 2024-10-05 08:05 | W.PN.INTV ---
Today's Communication / Plan
Recommendations
Pain control
Up OOB as tolerated
Encourage incentive spirometer use
Discontinue Cardene drip which has been off since earlier this morning at around 5: 45
Continue DAPT + statin
Neurology recommendations appreciated
Post-operative management as per vascular surgery
Patient is stable for downgrade out of ICU to telemetry. No additional recommendations at this time. Water Valve Repairer/Pulmonary service will now sign off. Please reconsult if there are any additional questions/concerns, or if patient's respiratory
status deteriorates.
Assessment
-
Assessment: 74-year-old male with a past medical history of hypertension, hyperlipidemia, CAD s/p stenting to OM 2+ OM 3 (2012), DM type II, carotid artery disease and history of COVID-19 who presents with confusion, unsteadiness, right-sided
weakness and brain fog. In the ER he was afebrile to 98.4 �F, pulse rate 70, BP 139/66, and saturating 98% on room air. Initial labs showed mild leukocytosis to 11.4, Hb 13.4, creatinine 1.5, glucose 274, and troponin negative at 0.02. Initial CT
head showed an ill-defined focus of hypoattenuation within the left parietal�occipital lobe, measuring 2.2 cm concerning for an acute infarct. CTA head/neck showed an occluded right vertebral artery, with calcified plaque within both carotid bulbs
with approximate 60% stenosis on each side, and also calcified plaque within the cavernous and supraclinoid portion of each internal carotid artery. He was given aspirin +1 L NS 0.9% and admitted to telemetry for further care. Neurology and
vascular surgery consulted. Brain MRI on 10/02 slowed numerous scattered nonhemorrhagic acute/subacute infarcts throughout the left parietal�occipital and frontoparietal regions suspicious for embolic etiology. Carotid ultrasound performed on 10/03
showing an occluded right sided vertebral artery, with calcified plaque in the left carotid bulb and proximal ICA with >70% stenosis. Patient was consented for left carotid endarterectomy due to symptomatic left carotid artery stenosis, and this
procedure was performed on 10/03/2024 with bovine pericardial patch angioplasty and intraoperative EEG/SSEP monitoring. After this procedure, the patient developed sudden loss of right-sided motor function and altered mental status - stroke alert
called. NIH stroke scale was 17. Stat CT head showed no acute intracranial abnormality. CTA head/neck was obtained with a focal high-grade stenosis within the proximal left-sided cervical ICA which may be secondary to a small thrombus. Patient
was emergently brought back to the OR on 10/03/2024 for reexploration of the left neck, and underwent thrombectomy of left internal carotid artery with revision patch angioplasty, and thrombectomy of common carotid artery with ligation of the left
external carotid artery. Patient was then transferred to the ICU for further care and children librarian services consulted for additional management/recommendations.
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
Impression:
#Subacute left parietal�occipital infarct (likely embolic etiology given numerous scattered ischemic acute/subacute infarcts in left parietal�occipital and fronto-parietal regions on brain MRI 10/02/2024)
#Symptomatic left carotid artery stenosis s/p left carotid endarterectomy with bovine pericardial patch angioplasty and intraoperative EEG/SSEP monitoring (POD #2)
#Postoperative right upper extremity hemiplegia with altered mental status due to acute thrombosis involving the left internal carotid artery s/p left ICA thrombectomy with revision patch angioplasty, common carotid artery thrombectomy and left
external carotid artery ligation (POD #2)
#Leukocytosis - now resolved
#Anemia - stable
#Metabolic acidosis with preserved anion gap - acidosis now resolved
#DM type II (uncontrolled with HbA1c: 12.3 on 10/02/2024) c/b hyperglycemia - glucose now in euglycemic range
#Former tobacco smoker
#CAD with history of stenting to OM2 + OM3 (2012)
#Personal history of COVID-19
Plan:
Postoperative surgical intensive care unit monitoring
Supplemental oxygen as needed to maintain SpO2 >90-94%
prn nebulized bronchodilators
Incentive spirometry encouraged 10x per hour for at least 4 hrs a day
Aspiration precautions
Pain control
Continue with aspirin, Plavix and atorvastatin
Per neurology, patient was not a candidate for tenecteplase once stroke alert was called given he just underwent a left-sided CEA
Hypercoagulable evaluation recommended and hematology consulted with recommendations appreciated
Maintain normoglycemia
PT/OT/GENERAL PRACTICE
Permissive hypertension
Maintain normothermia
Cardene drip has been off since earlier this morning at around 545AM
Neuro and vascular checks per protocol
Maintain MAP>65
Replete electrolytes with K>4, Mg>2
Maintain euglycemia with goal BG 140-180
Vascular surgery following-correspondence and operative notes reviewed
Transfuse blood products as needed to keep Hb>7g/dL, and plt>100k (given post-operative status and recent ischemic CVA)
DVT prophylaxis: LMWH
Early nutrition
Early mobilization
Code status: Full code
Patient is stable for downgrade out of ICU to telemetry. No additional recommendations at this time. Water Valve Repairer/Pulmonary service will now sign off. Thank you for allowing us to be involved in the care of this patient. Please reconsult if there
are any additional questions/concerns, or if patient's respiratory status deteriorates.
Data:
Brain MRI 10/02/2024: Numerous scattered nonhemorrhagic acute/subacute infarcts throughout the left parietal occipital and frontoparietal regions. Findings may be of embolic etiology.
CT head 10/04/2024: Stable small subacute left parieto-occipital infarct. Mild atrophy (stable)
Total time spent today was 59 minutes for this encounter. Time includes reviewing laboratory test/imaging results, reviewing pertinent medical records, obtaining and reviewing medical history, performing an appropriate exam, ordering medications,
tests and procedures. Time also includes documentation of this encounter, coordinating patient care and communicating with other healthcare professionals. Total time does not include separately billed tests performed on this date of service.
Subjective Dataa
Subjective Data
Date of Service:
Date of Service: October 05, 2024
Chief Complaint: Water Valve Repairer Follow Up
Subjective:
Patient seen and evaluated today. Feeling better overall. Still having weakness in the right hand. No acute events reported from overnight. Currently denies IRIZARRY, nausea, fevers or chills.
Review of Systems
General: Other (Negative unless mentioned above)
Objective Data
Data Reviewed
Vital Signs / I&O / Oxygen:
Vital Signs
Temp Pulse Resp BP Pulse Ox
97.6 F 69 20 140/66 98
10/05/24 11:00 10/05/24 13:42 10/05/24 11:00 10/05/24 13:42 10/05/24 11:00
Intake and Output
10/04/24 10/05/24 10/06/24
06:59 06:59 06:59
Intake Total 1158.0 / 1238.0 1150.0 / 1150.0 120 / 120
Output Total 1650 / 1950 300 / 300
Balance -492.0 / -712.0 850.0 / 850.0 120 / 120
SaO2 98
Nasal Cannula flow liters per 99
minute
Physical Exam
General: Respiratory Distress (negative), Comfortable, Chills (negative) and Sweats (negative)
HEENT: Normocephalic and Anicteric
Cardiovascular: S1-S2 and Peripheral Edema (negative)
Respiratory: Clear, Wheeze (negative), Crackles (negative), Rhonchi (negative) and Accessory Resp Muscle Use (negative)
GI: Soft, Non Distended, Non Tender and Normal Bowel Sounds
Neurology: Awake, Alert, Oriented, Tremors (negative), Other (Woven Paper Hat Mender strength: 4/5 right hand, 5/5 left hand; 5/5 bilateral plantar-/dorsiflexion) and Other (Normal H test: Pupils 3 mm on the left and brisk, abnormal pupil on the right with no reflex
to light; able to keep eyes closed against resistance; normal sensation to light touch in arms, legs and across the face in all 6 quadrants; mild right sided facial droop along the nasal-labial fold)
Skin: Warm, Dry, Jaundice (negative) and Rash (negative)
Labs/Micro/Reports
Lab Data
10/05/24 04:32
10/05/24 04:32
[2024-10-05] MEDS: NOVOLOG FLEXPEN-LOW RESISTANCE SC (08:21)
[2024-10-05] MEDS: PLAVIX 75 MG PO (08:21)
[2024-10-05] MEDS: LOW STRENGTH ASPIRIN 81 MG PO (08:21)
[2024-10-05] MEDS: ZESTRIL 20 MG PO (08:21)
[2024-10-05] MEDS: NOVOLOG FLEXPEN 4 UNITS SC ×3 (08:22→17:13)
--- NOTE | 2024-10-05 08:22 | W.PN.CD ---
Today's Communication / Plan
-
- Lisinopril reinitiated.variable BPs overlight/thismorning. was hypertensive last night and had hydralazine IV and then Cardene drip. low BPs this morning and cardene stopped. Now SBP. 150s
give AM lisinopril andmoniro. patitnis written for Procardial XL. would wait and assess response to lisinopril this morning prior to giving
Impression / Plan
-
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 Miguel, his primary Secretary) with coronary artery disease status-post SERENA to OM2/OM 3 (2012), hypertension, hyperlipidemia, IDDM, and carotid artery stenosis admitted with a CVA. The patient needs to undergo
carotid endarterectomy for severe ICA stenosis. Patient denies chest pain, shortness of breath, or palpitations.
Post left CEA
- Patient with left CEA 10/03/2024 with neurologic changes in recovery with evidence of new thrombus in left ICA requiring return to OR with thrombectomy of left internal carotid artery with revision of patch angioplasty and thrombectomy of left
common carotid artery.
- Patient reports feeling well. Still with some residual right hand weakness and discoordination
- Being transition from Cardene to oral meds
- Patient currently on aspirin and Plavix
CAD:
- Denies any anginal symptoms
- Continue aspirin.
- Continue atorvastatin 80 mg daily; LDL goal is less than 55 (currently 152).
- Of note, the patient has not followed up with Cardiology since 2020.
Hypertension:
- Lisinopril reinitiated.variable BPs overlight/thismorning. was hypertensive last night and had hydralazine IV and then Cardene drip. low BPs this morning and cardene stopped. Now SBP. 150s
give AM lisinopril andmoniro. patitnis written for Procardial XL. would wait and assess response to lisinopril this morning prior to giving
Hyperlipidemia:
- high intensity statin recommended
- Goal LDL as above; on atorvastatin 80g.
IDDM:
- A1c 12
- Management as per primary team.
Physical Exam
Vital Signs/Labs
Vital Signs
Temp Pulse Resp BP Pulse Ox
97.9 F 69 14 151/37 98
10/05/24 07:36 10/05/24 08:21 10/05/24 06:30 10/05/24 08:21 10/05/24 06:30
10/04/24 10/05/24 10/06/24
06:59 06:59 06:59
Actual Weight 88.5 kg 87.5 kg
10/05/24 04:32
10/05/24 04:32
PT 16.1 Sec (11.4-14.6) H 10/04/24 04:14
INR 1.27 10/04/24 04:14
APTT 27.0 Sec (23.4-35.0) 10/04/24 04:14
Triglycerides 126 mg/dl (10-149) 10/02/24 05:06
LDL Cholesterol, Calc 152 mg/dl 10/02/24 05:06
VLDL Cholesterol, Calc 25 mg/dl (0-30) 10/02/24 05:06
HDL Cholesterol 33 mg/dl 10/02/24 05:06
Physical Exam
Constitutional: No acute distress
Cardiovascular: Rhythm & rate is regular
Respiratory: Wheeze Absent and Rhonchi Absent
GI: Soft
Neuro/Psych: Alert
Other: Other (righthad weakness persists )
Data Reviewed
-
Date of Service: October 05, 2024
Medical Decision Making: Reviewed Test Results
X-Ray/CT/US/MRI/NUC/PET: Report Reviewed by me
Medical Tests (PFT, Pathology etc): Image Personally Visualized and interpreted
Labs: Labs Reviewed by me
--- NOTE | 2024-10-05 08:59 | PTCARENOTE ---
Assumed care of pt at 0715 following shift report. Pt awake, alert and w/o complaint pain or SOB. NIHSS completed w/ outgoing shift RN. Pt remains on RA w/ Pox 98%. No running IVs. Physical assessment completed as documented. Dr Mariee in room to see
pt @ 0720- aware of events overnight including use of Cardene (now off) to tx BP. New orders received including transfer to [facility] and Procardia. Dr Montalvo in room to see pt@ 0740- no new orders received. Dr Miguel in to see pt at 0830 and aware of
Cardene off at 0545. Per Dr Miguel- to hold off giving ordered Procardia until evaluating pt response to Lisinopril. Pt to transfer to 2121- transfer report given to 'Summer' RN and made aware of Dr Miguel's plan of care re: Procardia. Pt OOB
to BR to void and brush teeth. Gait unsteady-assistance provided. Pt returned to bed on request and bed exit alarm in use.
--- NOTE | 2024-10-05 09:09 | CM ---
Therapy reommendation for acute rehab. Preference is [facility] @ . Has been accepted.
[2024-10-05] MEDS: PROCARDIA XL (EXTENDED RELEASE) 30 MG PO (10:05)
[2024-10-05 12:42] LABS: Glucose - Point of Care 177 mg/dl (70-99)
[2024-10-05] MEDS: NOVOLOG FLEXPEN-LOW RESISTANCE 1 UNITS SC ×2 (13:09→17:12)
[2024-10-05 16:34] LABS: Glucose - Point of Care 158 mg/dl (70-99)
[2024-10-05] MEDS: LOVENOX 40 MG SC (17:11)
[2024-10-05] MEDS: LIPITOR 80 MG PO (17:11)
[2024-10-05 21:39] LABS: Glucose - Point of Care 133 mg/dl (70-99)
[2024-10-05] MEDS: LANTUS 0.2 UNITS SC (21:54)
[2024-10-06 03:00] VITALS: BP 174/70
[2024-10-06 07:00] VITALS: BP 193/80
[2024-10-06 07:06] LABS: Glucose - Point of Care 71 mg/dl (70-99)
--- NOTE | 2024-10-06 07:21 | PN.DE.MGMTRT ---
Insulin Management
- -
10/06/2024: Diabetes Management Consult Follow up
Patient admitted with weakness, intermittent numbness bilateral arms and legs, some expressive aphasia or speech dysarthria type symptoms. PMH: CAD s/p stents, IDDM, HTN, GERD, HCL. Prior to admission he was taking Lantus 40 BID and Metformin 500
mg BID, and novolog 10 to 15 units @ each meal. A1C 12.3%, Cr 1.2, eGFR >60.
POD 3 s/p L carotid endarterectomy. Patient is awake and alert, OOB in chair, able to discuss diabetes care. States he has a meter but not that reliable, he had a sensor but needs a new one. New Contour Next meter provided.
10/05 Premeal range was 133 to 177, HS glucose was 133. Fasting 71 this AM.
10/06 Will further reduce insulin, from Lantus 20 units to 18 units @ HS and continue NovoLog 4 units AC and low corrective AC.
Will follow for further needed adjustments to insulin regimen.
Discussed with nurse.
Will follow
Diabetes History
- -
Type of Diabetes: 2 requiring insulin
Pre-Admission Diabetes Regimen
Lab Results
Hemoglobin A1c 12.3 % (4.0-5.6) H 10/02/24 05:06
Insulin Pump Settings
IP Diabetes Regimen
10/05/24 10/05/24 10/05/24
07:29 12:40 16:33
POC Glucose 146 H 177 H 158 H
10/05/24 10/06/24
21:38 07:04
POC Glucose 133 H 71
Meal type: Dinner
Meal type: Lunch
Amount consumed: 100%
Amount consumed: 100%
Patient Education
[2024-10-06] MEDS: NOVOLOG FLEXPEN-LOW RESISTANCE SC (08:23)
[2024-10-06] MEDS: NOVOLOG FLEXPEN SC (08:23)
[2024-10-06] MEDS: ZESTRIL 40 MG PO (08:43)
[2024-10-06] MEDS: PROCARDIA XL (EXTENDED RELEASE) 30 MG PO ×2 (08:43→10:17)
[2024-10-06] MEDS: LOW STRENGTH ASPIRIN 81 MG PO (08:43)
[2024-10-06] MEDS: PLAVIX 75 MG PO (08:43)
--- NOTE | 2024-10-06 09:08 | W.PN.HOSP.TC ---
Addendum entered and electronically signed by Constantine Mariee MD 10/07/24 06:56:
Addendum
Patient is medically stable for discharge to acute rehab. Discussed with acute rehab nurse, patient has not had bowel movement in a few days. Patient did not have GI symptoms. He was given laxative. Patient had bowel movement and was ready to go
to acute rehab/ [facility].
Total discharge time spent to see the patient, examine the patient, review data and lab result, discuss discharge plan with patient, Rehab nurse, nursing staff around 65 minutes
Original Note:
Today's Communication/Plan
-
Adjust BP medications
HLD medications
Lower dose of Lantus
Await dc planning
Assessment / Plan
Assessment / Plan
Physical Exam
-
General: Well Developed and Well Nourished
HEENT: Moist Mucous Membranes, Anicteric and PERRLA
Respiratory: Clear to Auscultation and Non-Labored Respirations; Negative Wheezes, Rales or Rhonchi
Cardiac: Regular Rhythm and S1/S2;
GI: Soft, Nontender, Nondistended and Normal Bowel Sounds
Musculoskeletal: No joint swelling. �Negative Edema, Left Lower Extrem
Skin: Warm, Dry and no rash
Neuro: Awake and AO x 3, non-focal exam. Able to follow commands, mild incoordination RUE, no pronator drift B/L
Psych: Calm
# Numerous scattered nonhemorrhagic acute/subacute infarcts throughout the left parietal occipital and frontoparietal regions
He is feeling better
No new symptoms
s/p Left carotid endarterectomy 10/[address] Montalvo then later in recovery, patient experienced right arm weakness/hemineglect/confusion
S/p stroke alert/CT angio with filling defect in the distal left internal carotid artery concerning for thrombus, status post thrombectomy of the left internal carotid artery with revision of patch angioplasty/thrombectomy of common carotid artery
on 10/[address] Montalvo
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
c/w dual anti-plt therapy, control BP
LDL 152, starte don Zetia and Crestor.
for oncology evaluation for hypercoagulable state. Per oncology, continue with dual antiplatelet therapy in the setting of recurrent thrombotic stroke/none cardioembolic source
Appreciate vascular, oncology and cardiology help
# DM II -
Better controlled. HGB A1C around 12
Per pt: take Lantus 40-50 hs at home with NovoLog 15 tidac
-BG AM 71, lower dose of Lantus
# CAD
No chest pain or sob
# Essential HTN
No chest pain or headache
Added Nifedipine, increase by cardiology
increased Lisinopril to 40 mg QD.
Added PRN hydralazine
# JOSE ALFREDO, resolved
# Mild leukocytosis, resolving
Afebrile
Total time spent to see the patient, examine the patient, review data and lab result, discuss treatment plan with patient, nursing staff around 55 minutes
Anticipated Discharge: Today
Subjective/Interval History
-
Date of Service: October 06, 2024
No sob
No chest pain
Objective Data
-
Vital Signs:
Vital Signs
Temp Pulse Resp BP Pulse Ox
98.1 F 64 18 164/76 98
10/06/24 07:00 10/06/24 08:43 10/06/24 07:00 10/06/24 08:43 10/06/24 07:00
I&O
10/05/24 10/06/24 10/07/24
06:59 06:59 06:59
Intake Total 1150.0 / 1150.0 1080 / 1080
Output Total 300 / 300
Balance 850.0 / 850.0 1080 / 1080
[2024-10-06 09:23] VITALS: BP 180/76; PULSE 65
--- NOTE | 2024-10-06 09:55 | W.PN.CD ---
Today's Communication / Plan
-
increase lisinopril to 40mg daily
increase nifedipine to 60mg daily
Impression / Plan
-
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 Miguel, his primary Strapping Machine Operator) with coronary artery disease status-post SERENA to OM2/OM 3 (2012), hypertension, hyperlipidemia, IDDM, and carotid artery stenosis admitted with a CVA. The patient needs to undergo
carotid endarterectomy for severe ICA stenosis. Patient denies chest pain, shortness of breath, or palpitations.
Post left CEA
- Patient with left CEA 10/03/2024 with neurologic changes in recovery with evidence of new thrombus in left ICA requiring return to OR with thrombectomy of left internal carotid artery with revision of patch angioplasty and thrombectomy of left
common carotid artery.
- Patient currently on aspirin and Plavix
HTN
-uncontrolled
-increase lisinopril to 40mg daily
-increase nifedipine to 60mg daily
CAD:
- Denies any anginal symptoms
- Continue aspirin.
- not on beta jerzy due to bradycardia
Lipid management
- LDL is 152
-intensify lipid therapy: crestor 40mg daily, zetia 10mg daily
IDDM:
- A1c 12
- Management as per primary team.
Testing
Echo 10/03/24: EF 60-65%, nl RV, no sig valve disease
Physical Exam
Vital Signs/Labs
Vital Signs
Temp Pulse Resp BP Pulse Ox
98.1 F 64 18 164/76 98
10/06/24 07:00 10/06/24 08:43 10/06/24 07:00 10/06/24 08:43 10/06/24 07:00
10/05/24 10/06/24 10/07/24
06:59 06:59 06:59
Actual Weight 87.5 kg
10/05/24 04:32
10/05/24 04:32
PT 16.1 Sec (11.4-14.6) H 10/04/24 04:14
INR 1.27 10/04/24 04:14
APTT 27.0 Sec (23.4-35.0) 10/04/24 04:14
Triglycerides 126 mg/dl (10-149) 10/02/24 05:06
LDL Cholesterol, Calc 152 mg/dl 10/02/24 05:06
VLDL Cholesterol, Calc 25 mg/dl (0-30) 10/02/24 05:06
HDL Cholesterol 33 mg/dl 10/02/24 05:06
Physical Exam
Constitutional: No acute distress and Comfortable
EENT: Moist mucous membranes
Cardiovascular: Rhythm & rate is regular, Pedal edema is absent, JVD pressure is normal and Systolic murmur absent
Respiratory: Respiratory effort normal and Lungs clear to auscul.
Neuro/Psych: AO x 3
Data Reviewed
-
Date of Service: October 06, 2024
EKG: Other (Tele: SR/SB 40s-60s, 4 beats NSVT)
Labs: Labs Reviewed by me
[2024-10-06 09:57] VITALS: BP 180/76; PULSE 65
[2024-10-06] MEDS: ROXICODONE 5 MG PO (10:22)
[2024-10-06 11:00] VITALS: BP 150/62
[2024-10-06 11:49] LABS: Glucose - Point of Care 172 mg/dl (70-99)
[2024-10-06] MEDS: NOVOLOG FLEXPEN-LOW RESISTANCE 1 UNITS SC (12:30)
[2024-10-06] MEDS: NOVOLOG FLEXPEN 4 UNITS SC (12:31)
[2024-10-06] MEDS: MIRALAX 17 GRAMS PO (13:18)
[2024-10-06] MEDS: DULCOLAX 10 MG RECTAL (13:19)
[2024-10-06] MEDS: DULCOLAX 10 MG PO (13:23)
--- NOTE | 2024-10-06 13:30 | W.PN.VS ---
Today's Communication / Plan
-
Patient seen and examined at bedside with Dr. Munir Montalvo.
Assessment/Plan
-
Assessment: 74-year-old male POD #3 left carotid endarterectomy with bovine pericardial patch angioplasty, postoperatively developed onset of right arm weakness with hemineglect and confusion prompting stroke alert and CT angio with filling defect
in the distal left internal carotid artery beyond the end of the patch concerning for thrombus and patient was taken back emergently to the OR, he underwent thrombectomy of left internal carotid artery with revision of patch angioplasty and
thrombectomy of common carotid artery.
Plan:
Follow up placed in discharge instructions
Subjective Data
-
Date of Service: October 06, 2024
Patient seen and examined at bedside, reports continued right hand weakness but offers no other complaints.
Objective Data
-
Vital Signs
Temp Pulse Resp BP Pulse Ox
97.9 F 61 20 150/62 99
10/06/24 11:00 10/06/24 11:00 10/06/24 11:00 10/06/24 11:00 10/06/24 11:00
Intake and Output
10/05/24 10/06/24 10/07/24
06:59 06:59 06:59
Intake Total 1150.0 / 1150.0 1079 / 1080
Output Total 300 / 300
Balance 850.0 / 850.0 1079 / 1079
Intake:
Oral fluids 840 / 840 1079 / 1079
IV fluids (Total) 310.0 / 310.0 0 / 0
Cardene 150.0 / 150.0 0 / 0
Nss 1,000 ml @ 80 mls/hr IV . 160 / 160
[id number] [facility] Rx#:[id number]
Output:
Urine, Voided 300 / 300
Other:
Number of approximated MODERATE 1 1
amounts of urine
Number of approximated LARGE 1 1
amounts of urine
Lab Results
10/05/24 04:32
10/05/24 04:32
Calcium 9.1 mg/dl (8.4-10.2) 10/05/24 04:32
Total Bilirubin Cancelled 10/01/24 21:22
AST Cancelled 10/01/24 21:22
ALT Cancelled 10/01/24 21:22
Alkaline Phosphatase Cancelled 10/01/24 21:22
Total Protein Cancelled 10/01/24 21:22
Albumin Cancelled 10/01/24 21:22
Physical Exam
-
No apparent distress, resting in bed comfortably
Left neck surgical incision clean dry and intact, suture line well-approximated, Exofin glue intact, no evidence of hematoma
No tachycardia
No dyspnea on room air
ABD flat, nondistended, nontender
Moves bilateral lower extremities to command and spontaneous with equal strength, right upper extremity hand grasp weaker than left and right upper extremity with incoordination, moves bilateral lower extremities spontaneously and command
--- NOTE | 2024-10-06 14:07 | CM ---
CM following re: discharge planning.
Reviewed pt's chart, met with pt and pt's friend at bedside.
Discharge order noted. Pt is aware, expressed his agreement with discharge. IMM reviewed, placed on chart, pt has a copy.
PT and OT have been recommending acute rehab level of care and pt preferred [facility].
A referral to [facility] noted. CM spoke to [facility] acute meteorologist liaison and she confirmed that pt is accepted for admission to [facility] and pt must to have BM prior to discharge, has not have BM for 5 days. RN and MD are aware.
CM initiated an auth from [facility] for acute rehab level of care at [facility], spoke to [facility] case coordinator Radha and based on pt's clinical, pt is approved for acute rehab level of care at [facility] for 7 initial days from today 10/06/24
till 10/12/24 with LCD and NRD 10/12/24. Auth: [id number]. For review: [phone].
Auth information forwarded to [facility] acute meteorologist liaison.
[facility] nursing report: [phone]
Discharge instructions fax: [phone]
D/C plan: [facility]
[2024-10-06 15:00] VITALS: BP 110/59
--- NOTE | 2024-10-06 17:56 | W.DCSUMMARY ---
Discharge Summary
Discharge Data
Date of Admission: 10/02/24
Date of Discharge: 10/06/24
-
Pending Results: No
Hospital Course
74 years old male presented with confusion, imbalance. Patient did not have signs of active infection. Initial scan of the head showed focal density in the left parietal/occipital lobe. MRI of the brain showed numerous scattered nonhemorrhagic
acute/subacute infarcts throughout the left parietal occipital and frontoparietal regions. He was found to have left carotid stenosis. Patient was evaluated by neurology and vascular surgery. He was started on antiplatelet therapy and plan to
pursue left carotid enterectomy. Patient was evaluated by veterinary technology instructor before surgery. Echocardiogram showed normal left ventricular ejection fraction with no regional wall motion abnormality, no significant valvular disease. Patient underwent
left carotid enterectomy by Dr. Montalvo. Postoperatively, he developed acute onset of right arm weakness/hemineglect and confusion. CT angio showed filling defect in the distal left internal carotid artery beyond the end of the patch concerning for
thrombus and patient was taken back emergently to the OR, he underwent thrombectomy of left internal carotid artery with revision of patch angioplasty and thrombectomy of common carotid artery. Patient was monitored in the intensive care unit. He
received antihypertensive medication. Patient did well and improved significantly. He continued to have mild right hand weakness but no other complaints. Blood pressure medications were adjusted. He was maintained on dual antiplatelet therapy
and the plan to continue for 21 days then to continue with aspirin afterward. Patient was followed by diabetic nurse practitioner to adjust his insulin requirement. He was placed on statin therapy and Zetia. Patient was evaluated by physical
therapy. He was evaluated by acute rehab doctor. Patient remained hemodynamically stable. He was discharged to [facility] in a stable condition.
Discharge Plan
-
Patient Disposition: Acute Rehab Facility
Discharge Diagnosis/Procedures: stroke
continue with aspirin and Plavix for 21 days the aspirin alone.
Diet: Diabetic, Carb Controlled
Activity: No strenuous activity
Driving Restrictions: Not until seen by your Dr
Bathing Restrictions: OK to Shower
Stand Alone Forms: Vascular Surg Discharge Instr
Referrals:
Tien Cardenas MD [Active, Cardiology] - in four to six weeks
Mervin Ames MD [Family Provider, Internal Medicine]
Rosalva eBnson CRNP [Specified Professional Personl, Vascular Surgery] - 10/20/24 11:30 am
Referral Note: Vascular office follow up
Prescriptions:
New
aspirin 81 mg Tablet,Chewable
81 mg PO DAILY Qty: 30 0RF
rosuvastatin 40 mg Tablet
40 mg PO QPM Qty: 30 0RF
acetaminophen 325 mg Tablet
650 mg PO Q4HPRN PRN (Reason: mild pain or temp >/= 100.4 F) Qty: 14 0RF
polyethylene glycol 3350 17 gram Powder In Packet
17 g PO DAILY Qty: 30 0RF
nifedipine 60 mg Tablet Extended Release
60 mg PO DAILY Qty: 30 0RF
lisinopril 20 mg Tablet
40 mg PO DAILY Qty: 30 0RF
ezetimibe 10 mg Tablet
10 mg PO HS Qty: 30 0RF
clopidogrel [Plavix] 75 mg tablet
75 mg PO DAILY Qty: 21 0RF
Continued
Ozempic 0.25 mg or 0.5 mg(2 mg/1.5 mL) Pen Injector
0.5 mg SC QWEEK
Rx Instructions:
Take on Mondays
Changed
insulin aspart U-100 100 unit/mL (3 mL) Insulin Pen
4 unit SC TID Qty: 0 0RF
Rx Instructions:
May take 15 units if BG elevated
insulin glargine [Lantus Solostar U-100 Insulin] 100 unit/mL (3 mL) insulin pen
18 unit SC Daily Qty: 0 0RF
Discharge Orders:
Discharge Patient (As Directed); Ordered 10/06/24
Ordered By: Constantine Mariee
Discharge Date and Time
Discharge Date/Time: 10/06/24 16:30
Print Language: LIBERIAN
[2024-10-07 04:17] LABS: Beta-2-Glycoprotein I Ab. IgG <10 SGU (<=20); Beta-2-Glycoprotein I Ab. IgM <10 SMU (<=20)
[2024-10-07 19:00] LABS: Cardiolipin IgA Antibody <10 APL (<=11); Cardiolipin IgM Antibody <10 MPL (<=12); Cardiolipin Igg Antibody <10 GPL (<=14)
== END 2024-10-06 16:30 | DRG 38 ==
LOC: 2 NORTH 07:45
PROVIDERS: Emergency Medicine; Nurse Practitioner; Nurse Practitioner Acute Care; Nurse Practitioner Family; Student in an Organized Health Care Education/Training Program; Surgery Vascular Surgery; ADMITTING PHYSICIAN Internal Medicine; ATTENDING PHYSICIAN Internal Medicine; CONSULT PHYSICIAN Internal Medicine; CONSULT PHYSICIAN Internal Medicine Hematology & Oncology; CONSULT PHYSICIAN Psychiatry & Neurology Clinical Neurophysiology; CONSULT PHYSICIAN Surgery Vascular Surgery; EMERGENCY PHYSICIAN Student in an Organized Health Care Education/Training Program; FAMILY PHYSICIAN Internal Medicine; OTHER PHYSICIAN Internal Medicine Critical Care Medicine; OTHER PHYSICIAN Psychiatry & Neurology Neurology
PROC: 03CL0ZZ Extirpation of Matter from Left Internal Carotid Artery, Open Approach (ICD-10-PCS; 2024-10-03)
PROC: 03UL0KZ Supplement Left Internal Carotid Artery with Nonautologous Tissue Substitute, Open Approach (ICD-10-PCS; 2024-10-03)
PROC: 03CJ0ZZ Extirpation of Matter from Left Common Carotid Artery, Open Approach (ICD-10-PCS; 2024-10-03)
PROC: 03UJ0KZ Supplement Left Common Carotid Artery with Nonautologous Tissue Substitute, Open Approach (ICD-10-PCS; 2024-10-03)
DX: I63.232 Cerebral infarction due to unspecified occlusion or stenosis of left carotid arteries (principal); E87.20 Acidosis, unspecified; N17.9 Acute kidney failure, unspecified; R44.3 Hallucinations, unspecified; G81.91 Hemiplegia, unspecified affecting right dominant side; G97.82 Other postprocedural complications and disorders of nervous system; R41.4 Neurologic neglect syndrome; T82.868A Thrombosis due to vascular prosthetic devices, implants and grafts, initial encounter; I25.10 Atherosclerotic heart disease of native coronary artery without angina pectoris; I11.9 Hypertensive heart disease without heart failure; E78.00 Pure hypercholesterolemia, unspecified; I45.10 Unspecified right bundle-branch block; R47.01 Aphasia; I16.0 Hypertensive urgency; E11.65 Type 2 diabetes mellitus with hyperglycemia; K21.9 Gastro-esophageal reflux disease without esophagitis; R26.2 Difficulty in walking, not elsewhere classified; D72.829 Elevated white blood cell count, unspecified; D64.9 Anemia, unspecified; Y83.8 Other surgical procedures as the cause of abnormal reaction of the patient, or of later complication, without mention of misadventure at the time of the procedure; Y92.238 Other place in hospital as the place of occurrence of the external cause; Z60.2 Problems related to living alone; Z79.82 Long term (current) use of aspirin; Z79.84 Long term (current) use of oral hypoglycemic drugs; Z79.4 Long term (current) use of insulin; Z95.5 Presence of coronary angioplasty implant and graft; Z87.891 Personal history of nicotine dependence; Z79.02 Long term (current) use of antithrombotics/antiplatelets; Z82.49 Family history of ischemic heart disease and other diseases of the circulatory system; Z82.3 Family history of stroke; Z86.16 Personal history of COVID-19; Z79.85 Long-term (current) use of injectable non-insulin antidiabetic drugs; Z83.3 Family history of diabetes mellitus
CPT/HCPCS: 88304; 88311; 0042T; 34001; 35301; 37600; 70450; 70496; 70498; 70551; 71045; 80048; 80061; 82962; 83036; 84132; 84484; 85025; 85027; 85610; 85613; 85730; 86146; 86147; 86850; 86900; 86901; 92523; 92610; 93005; 93306; 93880; 95938; 95941; 95955; 96360; 97110; 97116; 97163; 97164; 97167; 97168; 97535; 99285; Q9967

== ENCOUNTER 2024-10-09 12:03 | Observation (INO) | payer OTHER, SELFPAY ==
[2024-10-09] VITALS (33 sets, daily range): BP systolic 144–227; BP diastolic 47–156; BMI 27.5; BMI 29.4
[2024-10-09 08:11] LABS: % Basophils 1.4 % (0-2); % Eosinophils 4.5 % (0-6); % Immature Granulocytes 0.3 % (0-0.5); % Lymphocytes 22.4 % (20.5-51.1); % Monocytes 9.4 % (1.7-9.3); Absolute Basophils 0.1 10^3/uL (0-0.2); Absolute Eosinophils 0.4 10^3/uL (0-0.7); Absolute Lymphocytes 1.8 10^3/uL (1.2-3.4); Absolute Monocytes 0.8 10^3/uL (0.1-0.6); Hematocrit 36.1 % (39.0-52.0); Hemoglobin 12.3 g/dL (13.0-18.0); Mean Corp Hgb Conc. 34.1 g/dL (33.0-37.0); Mean Corpuscular Hgb 29.2 pg (27.0-31.0); Mean Corpuscular Volume 85.7 fL (80.0-94.0); Mean Platelet Volume 12.3 fL (7.4-10.4); Nucleated Red Blood Cells % 0 % (-); Platelet Count 223 10^3/uL (130-400); Red Blood Cell Count 4.21 10^6/uL (4.70-6.10); Red Cell Dist. Width 12.7 % (11.5-14.5)
[2024-10-09 08:41] LABS: ALT (SGPT) 30 U/L (0-50); AST (SGOT) 26 U/L (17-59); Albumin 3.8 g/dl (3.5-5.0); Alkaline Phosphatase 72 U/L (38-126); Blood Urea Nitrogen 24 mg/dl (9-20); Calcium 9.6 mg/dl (8.4-10.2); Carbon Dioxide 28 mmol/L (22-30); Chloride 113 mmol/L (98-107); Glucose 171 mg/dl (70-99); Potassium 5.2 mmol/L (3.5-5.1); Sodium 145 mmol/L (135-145); Total Bilirubin 0.7 mg/dl (0.2-1.3); Total Protein 6.5 g/dl (6.3-8.2); eGFR > 60.00
--- NOTE | 2024-10-09 09:02 | ED.GENMED ---
History of Present Illness
General
Chief Complaint: Heart Rate Problem
Source: patient and senior living records
Exam Limitations: none
Time Seen by Provider: 10/09/24 08:58
Nursing documentation reviewed up to this point in time: agreed with
History of Present Illness
History of Present Illness:
74 yo male w h/o HTN, CVA, carotid stenosis, CAD, cardiac stents, IDDM, [facility] for [facility], high BP.
Admitted 10/02-10/06.
10/03: Patient underwent left carotid enterectomy by Dr. Montalvo. Postoperatively, he developed acute onset of right arm weakness/hemineglect and confusion. CT angio showed filling defect in the distal left internal carotid artery beyond the end of
the patch concerning for thrombus and patient was taken back emergently to the OR, he underwent thrombectomy of left internal carotid artery with revision of patch angioplasty and thrombectomy of common carotid artery. Patient was monitored in the
intensive care unit. He received antihypertensive medication. Had significant improvement.
DC'd on these new meds for BP: Lisinopril 40 mg daily, Nifedipine 60 mg daily
Spoke with Karon, nurse at Rehab, states pt blood pressure manually 162/58, heart rate 43, weak pulse, and nausea, last BM 3 days ago, called Dr. Adams, told to send here for eval.
Past History
Past History
ED Past Medical History: CAD, GERD, HTN, Hypercholesterolemia and IDDM
ED Past Surgical History: Cardiac (Cardiac stents)
Social History
Tobacco: Non-smoker
Alcohol: None
Drug: None
Personal: Single
Living: with family
Employment: Retired
Review of Systems
Review of Systems
Allergies reviewed?: Yes
All Other Systems: ROS reviewed and negative except as documented in HPI and ROS
Constitutional: Denies fever or fatigue
EENT: Denies sore throat
Respiratory: Denies trouble breathing
Cardiac: Denies chest pain
ABD/GI: Reports nausea and constipated; Denies abdominal pain, vomiting, diarrhea or anorexia
: Denies dysuria or difficulty voiding
Musculoskeletal: Denies edema
Skin: Reports other (incision left neck healing well)
Neurological: Reports other (mild right hand 'heaviness' since recent CVA)
Phy Exam
Physical Exam
Physical Exam:
GENERAL: No acute distress. A&Ox3.
CONSTITUTIONAL: Afebrile.
EYES: clear, conjunctivae normal
ENMT: moist mucus membranes, Pharynx nl
RESPIRATORY: Regular respirations, nonlabored, lungs clear.
CARDIOVASCULAR: Regular rate and rhythm, no murmurs, no rubs.
GI: Soft, nontender, normal BS
MUSCULOSKELETAL: Moves with ease. Well perfused.
SKIN: Warm, dry, pink. Left neck incision healing well. No edema
PSYCH: Normal mood and affect. Well kept, interactive and appropriate
NEUROLOGIC: Awake, alert and oriented. No focal neurological deficits
Course
Orders/Labs/Results
Orders:
Orders
10/09/24 07:53
Electrocardiogram (*1) Urgent
Reason for Study: Bradycardia / Tachycardia
10/09/24 07:54
EKG- Treatment ONCE
10/09/24 08:05
Complete Blood Count/With Diff Urgent
Comprehensive Metabolic Panel Urgent
10/09/24 Lunch
2000 calorie (17 carb) Diabetic
At Your Request: Full Participation
Does patient need a safe tray?: No
10/09/24 11:20
HydrALAZINE [Apresoline] 10 mg IV NOW STA
HydrALAZINE [Apresoline] 20 mg .ROUTE .STK-MED ONE
10/09/24 11:22
HydrALAZINE [Apresoline] 5 mg IV NOW STA
10/09/24 11:30
Admit/Transfer Patient As Directed
Co-Sign Provider:
Level of Care: Observation services
Assign to:: IVU
Physician / Group: Hospitalist
Diagnosis: HTN urgency, bradycardia
Reason for Hospitalization: HTN urgency, bradycardia, hyperkalemia
PRN Pain Medication Management As Directed
May give lesser potent ordered pain med per pt: Yes
preference::
Protocol:: Medication orders for pain may be administered in a
manner that supports deferring to patient preference
when the pt is:
- Requesting an ordered lesser potent pain medication.
Least to most potent pain medications are defined
as: acetaminophen < NSAID < tramadol < opioids
(morphine, oxycodone, hydromorphone).
- Requesting a lesser dose of the same medication IF
ORDERED.
- Requesting a less intrusive route of administration
if both routes are prescribed by the provider (PO <
IV).
10/09/24 11:32
Code Status As Directed
Resuscitation Status: Full Code
10/09/24 16:26
Acetaminophen [Tylenol] 650 mg PO Q4HPRN PRN
Bisacodyl [Dulcolax] 10 mg RECTAL [id number] PRN
Dextrose 50%-Water [Dextrose 50% Syringe] 12.5 grams IV [id number] PRN
Docusate W/Senna [Senokot-S] 1 tablet PO BIDPRN PRN
Glucagon [GlucaGen] 1 mg IM PRN PRN
HydrALAZINE [Apresoline] 5 mg IV Q6HPRN PRN
Insulin Aspart Pen [Novolog Flexpen] 4 units SC TID
Ondansetron Injectable [Zofran] 4 mg IV Q8HPRN PRN
Polyethylene Glycol Powder [Miralax] 17 grams PO DAILYPRN PRN
10/09/24 16:26
Add On- LAB Routine
Tests Added?: HgbA1C to today's lab
CARDIOLOGY CONSULT Routine
Consulting Provider: Maurice Flynn
Was physician already notified: Yes
Reason for consult: HTN, bradycardia
Activity As Directed
Activity Level: Out of Bed-Early Mobility
Bedside Glucose Monitoring As Directed
Frequency: AC&HS
Additional Instructions:: Change to q6h if pt on TPN, tube feeding or not eating
Vital Signs As Directed
Frequency: Per unit guidelines
DX Deep Vein Thrombosis Video Routine
10/09/24 16:30
Insulin Aspart Corrective Low [Novolog Flexpen-Low Resistance] See Protocol SC AC
10/09/24 18:00
Enoxaparin Sodium [Lovenox] 40 mg SC QPM
Rosuvastatin Calcium [Crestor] 40 mg PO QPM
10/09/24 22:00
Ezetimibe [Zetia] 10 mg PO HS
10/10/24 06:00
Basic Metabolic Panel IN AM
Complete Blood Count/No Diff IN AM
10/10/24 08:00
Aspirin Chewable [Low Strength Aspirin] 81 mg PO DAILY
Clopidogrel Bisulfate [Plavix] 75 mg PO DAILY
ISOSORBIDE MONOnitrate ER [Imdur (Extended Release)] 30 mg PO DAILY
insulin glargine [Lantus Solostar U-100 Insulin] 18 unit SC Daily
Abnormal Lab Results
10/09/24
08:05
RBC 4.21 L 10^6/uL
(4.70-6.10)
Hgb 12.3 L g/dL
(13.0-18.0)
Hct 36.1 L %
(39.0-52.0)
MPV 12.3 H fL
(7.4-10.4)
Absolute Monos (auto) 0.8 H 10^3/uL
(0.1-0.6)
Monocytes % 9.4 H %
(1.7-9.3)
Potassium 5.2 H D mmol/L
(3.5-5.1)
Chloride 113 H mmol/L
(98-107)
BUN 24 H mg/dl
(9-20)
Glucose 171 H mg/dl
(70-99)
10/09/24 08:05
10/09/24 08:05
Vital Signs
Initial and Last Documented VS:
Initial Vital Signs
Temp Pulse Resp BP Pulse Ox
98.1 F 43 16 168/66 99
10/09/24 07:51 10/09/24 07:51 10/09/24 07:51 10/09/24 07:51 10/09/24 07:51
Last Documented Vital Signs
Temp Pulse Resp BP Pulse Ox
98.2 F 92 12 198/63 99
10/09/24 14:00 10/09/24 17:00 10/09/24 15:46 10/09/24 17:00 10/09/24 15:46
Radar Systems Engineer consulted with Physician
Radar Systems Engineer consulted with physician?: Yes
Name of Physician Consulted: Noh
MDM/Problems Addressed
MDM/Problems Addressed:
74 yo male w h/o HTN, CVA, carotid stenosis, CAD, cardiac stents, IDDM, from [facility] for low HR, high BP.
Admitted 10/02-10/06.
10/03: Patient underwent left carotid enterectomy by Dr. Montalvo. Postoperatively, he developed acute onset of right arm weakness/hemineglect and confusion. CT angio showed filling defect in the distal left internal carotid artery beyond the end of
the patch concerning for thrombus and patient was taken back emergently to the OR, he underwent thrombectomy of left internal carotid artery with revision of patch angioplasty and thrombectomy of common carotid artery. Patient was monitored in the
intensive care unit. He received antihypertensive medication. Had significant improvement.
DC'd on these new meds for BP: Lisinopril 40 mg daily, Nifedipine 60 mg daily
Spoke with Karon, nurse at Rehab, states pt blood pressure manually 162/58, heart rate 43, weak pulse, and nausea, last BM 3 days ago, called Dr. Adams, told to send here for eval.
10:00 a.m.
EKG: Sinus bradycardia HR 44. HR trending down over past 3 days from 60's to 40's.
Consulted Cardiology Dr. Flynn who requests admission and she will see later.
Hospitalist notified of admission.
11:15
BP 227/78. Hospitalist at bedside. Hydralazine 5 mg requested.
Pt remains unchanged otherwise.
*Pulse Oximetry
Patient hypoxic: no (Pulse ox 98% RA)
*EKG
Interpretation: abnormal
Comparison EKG: no changes
Heart Rate: 44
Rate: bradycardiac
Rhythm: sinus
[place]: normal axis
Interval: normal interval
QRS Pattern: normal QRS
Ischemia: no ischemia
*Critical Care Note
Total Time (30-74mins, 75-104mins- exclusive of procedures): Not Applicable
ED Attending Note
-
Portions of this chart may have been created with voice recognition software.� Occasional wrong word or��sound alike� substitutions may have occurred due to the inherent limitations of voice recognition software.
Discharge Plan
Departure
Patient Disposition: Admit
Date of Disposition: 10/09/24
Time of Disposition: 09:56
Presentation/result/management discussed w/ accepting MD/DO: Hospitalist
Condition: Fair
Discharge Problem:
Bradycardia following surgery, Hypertension, S/P carotid endarterectomy
Interventions
Interventions:
*Risk Screen - Suicide Last Done: 10/09/24 16:36
*General Assessment Last Done: 10/09/24 09:40
*Neglect/Abuse Screening Last Done: 10/09/24 09:40
*ED- Fall Risk Assessment Last Done: 10/09/24 09:40
*ED COVID-19 Vaccine History Last Done: 10/09/24 16:36
*Nursing Disposition Last Done: 10/09/24 15:18
ED- Cardiac Assessment Last Done: 10/09/24 09:40
ED- Pulmonary Assessment Last Done: 10/09/24 09:40
Discharge Date and Time
Discharge Date/Time: 10/09/24 16:11
[2024-10-09] MEDS: APRESOLINE 5 MG IV ×2 (11:23→17:00)
--- NOTE | 2024-10-09 11:35 | HPS.HSE ---
Family Physician
-
Family Physician: Mervin Ames
Chief Complaint
-
htn, bradycardia
History of Present Illness
74yo M with PMHx of HTN, CAD s/p PCI, DM, CVA, carotid stenosis with recent L CEA, subsequent thrombectomy of L distal carotid sent from [place] with bradycardia. patient had same episodes of bradicardia on EKG in 2022. Remained asymptomatic, however
with significantly elevated BP. Previously started on Lisinopril and nifedipine. Now with mild hyperkalemia. Admitted for observation, adjustment of meds and cardiology consult with HTN urgency as patient asymptomatic
Medical History
Past Medical History
Past Medical History: Reports Other
Additional Past Medical History:
see HPI
Past Surgical History: Reports Other
Additional Past Surgical History:
See HPI
Social History
Tobacco: Former Smoker
Alcohol: Former
Drug: None
Family History
Family History: Not pertinent
Allergies / Home Medications
Allergies reflects when Allergies were last updated in [employer].
Home Medications with original date entered in [employer]
Allergy/Medication List:
Allergies
Allergy/AdvReac Type Severity Reaction Status Date / Time
No Known Allergies Allergy Verified 10/09/24 09:11
Home Medications
semaglutide 0.25 mg or 0.5 mg (2 mg/1.5 mL) subcutaneous pen injector (Ozempic) 0.5 mg SC QWEEK Diabetes 10/03/24
acetaminophen 325 mg tablet 650 mg (2 x 325 mg) PO Q4HPRN PRN mild pain or temp >/= 100.4 F #14 tabs 10/06/24
aspirin 81 mg chewable tablet 81 mg PO DAILY #30 tabs 10/06/24
clopidogrel 75 mg tablet (Plavix) 75 mg PO DAILY #21 tabs 10/06/24
ezetimibe 10 mg tablet 10 mg PO HS #30 tabs 10/06/24
insulin aspart U-100 100 unit/mL (3 mL) subcutaneous pen 4 unit (0.04 mL) SC TID Diabetes #0 mL 10/06/24
insulin glargine 100 unit/mL (3 mL) subcutaneous pen (Lantus Solostar U-100 Insulin) 18 unit (0.18 mL) SC Daily Diabetes #0 mL 10/06/24
lisinopril 20 mg tablet 40 mg (2 x 20 mg) PO DAILY #30 tabs 10/06/24
nifedipine 60 mg tablet,extended release 60 mg PO DAILY #30 tabs 10/06/24
polyethylene glycol 3350 17 gram oral powder packet 17 g PO DAILY #30 ea 10/06/24
rosuvastatin 40 mg tablet 40 mg PO QPM #30 tabs 10/06/24
Review of Systems
-
History Source: Patient
A 12 point ROS was completed and negative except as noted: Yes
Physical Exam
Vital Signs
Vital Signs
Temp Pulse Resp BP Pulse Ox
98.4 F 46 12 209/61 99
10/09/24 10:00 10/09/24 10:45 10/09/24 10:45 10/09/24 10:30 10/09/24 10:45
Physical Exam
General: Well Developed, Well Nourished and No Apparent Distress
HEENT: Anicteric and Moist mucous membranes
Respiratory: Clear; No Wheezes or Crackles
Cardiac: S1/S2, Regular Rhythm and Bradycardia
GI: Soft, Non Tender and Non Distended
Genito-urinary: No costovertebral tender
Musculoskeletal: No Clubbing, No Cyanosis and No Edema
Skin: Warm; No Rash or Jaundice
Neuro: Awake, Alert, Oriented and AO x 3
Psych: Calm
Laboratory Results
-
10/09/24 08:05
10/09/24 08:05
Laboratory Results
Total Bilirubin 0.7 mg/dl (0.2-1.3) 10/09/24 08:05
AST 26 U/L (17-59) 10/09/24 08:05
ALT 30 U/L (0-50) 10/09/24 08:05
Alkaline Phosphatase 72 U/L (38-126) 10/09/24 08:05
Data Reviewed
-
Lab Data: Labs Reviewed by me
Impression/Plan
-
A/P:
#Chronic bradycardia
#HTN urgency on chronic essential HTN
#CAD s/p PCI
avoid BB, CCB
telemetry, atropin or percPM as needed if symptomatic, or significant bradycardia
Cardio consult
Hydralazine as needed
add Isosorbide ER(useful with PMhx of CAD). Further adjustment as per cardio
#Mild hyperkalemia
stop ACei
follow BMp
#DM type 2 with circulatory complications
cont insulin home dose, accuchecks, add insulin SS and cont DM diet
#Recent CVA x2
#Recent L CEA
Cont Plavix (apparently as per Onc and Neurology - indefinitely for DAPT due to recurrent stroke)
cont ASA, statin
DVT ppx lovenox
Full code
I have spent at least 78min admitting the patient
--- NOTE | 2024-10-09 13:29 | CON.CAR ---
Consultation
Consultation Request
Date/Time Consultation Requested: 10/09/2024 at 10 AM
Date/Time Consultation Performed: 10/09/2024 at 1:30 PM
Requesting Provider: GUEVARA Hollis
Performing Provider: Maurice Flynn MD
Reason for Consultation: bradycardia
Medical History
-
Chief Complaint: bradycardia
History of Present Illness:
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
on 10/03/[address] Montalvo. He was discharged to [facility] on 10/06/2024. He feels that he was doing well there and had no new symptoms. He was noted to be bradycardic with HR 40s so was sent to the ER. At the time of my exam, his heart rate has
improved to 50s. He notes that this is longstanding 'since I was a kid'. He has some fatigue and lightheadedness but attributes both to his recent CVA.
Past Medical History
Past Medical History: CAD, HTN, Hypercholesterolemia and IDDM
Past Surgical History: Cardiac (Coronary stenting)
Social History
Tobacco: Former Smoker (Remote in his 20s)
Alcohol: None
Drug: None
Personal:
Living: With Family
Employment: Retired
Family History
Family History: Reviewed & Not Pertinent
Allergies / Home Medications
Allergy/AdvReac Type Severity Reaction Status Date / Time
No Known Allergies Allergy Verified 10/09/24 09:11
�Medication �Instructions �Recorded �Confirmed �Type
semaglutide 0.25 mg or 0.5 mg (2 0.5 mg SC QWEEK Diabetes 10/03/24 10/09/24 History
mg/1.5 mL) subcutaneous pen
injector (Ozempic)
acetaminophen 325 mg tablet 650 mg (2 x 325 mg) PO Q4HPRN PRN 10/06/24 10/09/24 Rx
mild pain or temp >/= 100.4 F #14
tabs
aspirin 81 mg chewable tablet 81 mg PO DAILY #30 tabs 10/06/24 10/09/24 Rx
clopidogrel 75 mg tablet (Plavix) 75 mg PO DAILY #21 tabs 10/06/24 10/09/24 Rx
ezetimibe 10 mg tablet 10 mg PO HS #30 tabs 10/06/24 10/09/24 Rx
insulin glargine 100 unit/mL (3 18 unit (0.18 mL) SC Daily 10/06/24 10/09/24 Rx
mL) subcutaneous pen (Lantus Diabetes #0 mL
Solostar U-100 Insulin)
lisinopril 20 mg tablet 40 mg (2 x 20 mg) PO DAILY #30 tabs 10/06/24 10/09/24 Rx
polyethylene glycol 3350 17 gram 17 g PO DAILY #30 ea 10/06/24 10/09/24 Rx
oral powder packet
rosuvastatin 40 mg tablet 40 mg PO QPM #30 tabs 10/06/24 10/09/24 Rx
aluminum-mag hydroxide-simethicone 30 ml PO QIDPRN PRN indigestion 10/09/24 10/09/24 History
200 mg-200 mg-20 mg/5 mL oral susp
heparin (porcine) 5,000 unit/mL (1 5,000 unit SC Q8H 10/09/24 10/09/24 History
mL) injection cartridge
insulin aspart U-100 100 unit/mL 4 unit SC AC Diabetes 10/09/24 10/09/24 History
(3 mL) subcutaneous pen
melatonin 3 mg tablet 3 mg PO HS PRN insomnia 10/09/24 10/09/24 History
nifedipine 60 mg tablet,extended 60 mg PO QPM 10/09/24 10/09/24 History
release
Review of Systems
-
All other systems: Negative unless noted
Physical Exam
Vital Signs
Temp Pulse Resp BP Pulse Ox
98.4 F 49 12 188/55 99
10/09/24 10:00 10/09/24 13:15 10/09/24 13:15 10/09/24 13:15 10/09/24 13:15
Lab Results
10/09/24 08:05
10/09/24 08:05
Physical Exam
General: Well Developed and Well Nourished
Respiratory: Clear
Cardiac: S1/S2 and Regular Rhythm; Negative Murmur or Peripheral Edema
Neuro: AO x 3
Impression / Plan
-
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 Montalvo, discharged to [facility] on 10/06 and readmitted for bradycardia.
Sinus bradycardia
-Longstanding. Asymptomatic. Recent TSH normal. He had some abdominal pain this morning so I wonder if vagal tone was high.
-He is not on any AV chaparrita blocking agents.
-Monitor on telemetry and for symptoms. If he becomes symptomatic, can consider PPM.
Hypertensive urgency
-BP with systolics >200 on admission
-Lisinopril and nifedipine were uptitrated last admission
-Continue lisinopril 40 mg and increase nifedipine to 90 mg daily
-Hospitalist service started Imdur 30 mg daily which is reasonable. Also could consider HCTZ
-Beta-blockers are not an option given bradycardia. No MRA given hyperkalemia.
CVA s/p left CEA
-Patient with left CEA 10/03/2024 with neurologic changes in recovery with evidence of new thrombus in left ICA requiring return to OR with thrombectomy of left internal carotid artery with revision of patch angioplasty and thrombectomy of left common
carotid artery.
-Patient currently on aspirin and Plavix
CAD
-No anginal symptoms
-Continue DAPT as above, Crestor, and Zetia
Data Reviewed
-
EKG: Tracing Personally Visualized and interpreted, Discussed with Physician and Discussed with Patient
Medical Tests (Nuc Med, Echo etc): Report Reviewed by me
Labs: Labs Reviewed by me
Old Records: Reviewed
--- NOTE | 2024-10-09 13:56 | CM ---
Met with patient at bedside in ED
GOODEN form explained; patient unable to sign; form dated @ 1340
RUTH POLLARD sent patient to ED today
Patient lives in an apartment at [facility]; elevator access; apartment bathroom has stall shower w/ grab bar; patient reported that he was independent w/ personal care; was able to drive; ambulated with [employer] Walker sometimes.
Pharmacy verified: [facility]
No Home Health utilization history
Plan: Return to [facility] when medically stable
[2024-10-09 16:38] LABS: Glucose - Point of Care 144 mg/dl (70-99)
[2024-10-09] MEDS: SENOKOT-S 1 TABLET PO (17:00)
[2024-10-09] MEDS: NOVOLOG FLEXPEN-LOW RESISTANCE SC (17:35)
[2024-10-09] MEDS: NOVOLOG FLEXPEN 4 UNITS SC (17:36)
[2024-10-09] MEDS: PROCARDIA XL (EXTENDED RELEASE) 90 MG PO (18:19)
[2024-10-09] MEDS: CRESTOR 40 MG PO (18:19)
[2024-10-09] MEDS: LOVENOX 40 MG SC (18:19)
--- NOTE | 2024-10-09 19:22 | PTCARENOTE ---
~1630: Patient arrived from the ED. Pt AOx4 but a bit forgetful when asking about medication and medical information, SB on tele 38-50s, however while ambulating HR goes up to ST 100s, RA satting high 90s. SBP 198/67 upon admission to unit, PRN
hydralazine given. Patient reports no BM for 4 days, PRN senna given as well. 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
previous CVA on 10/03/24. Pt standby assist to bathroom. Denies pain at this time. Orineted to room and call schumacher system. All needs met at this time, call schumacher within reach.
~[id number]: Patient ambulated to bathroom with standby assist. Pt in stable condition at this time; SBP 160s, NSR 60s. handoff report given to nightshift RN.
[2024-10-09 21:07] LABS: Glucose - Point of Care 212 mg/dl (70-99)
[2024-10-09] MEDS: ZETIA 10 MG PO (22:08)
--- NOTE | 2024-10-10 00:56 | PTCARENOTE ---
Pt.'s BP improved this shift (down to 144/53 post evening meds), NSR - SB (lowest 40's with sleep). Pt. has no complaints of pain/discomfort. Neuro assessment unchanged from previous shift. Resting quietly.
[2024-10-10 03:35] VITALS: BP 161/57
[2024-10-10 04:35] LABS: Hematocrit 34.2 % (39.0-52.0); Hemoglobin 11.8 g/dL (13.0-18.0); Mean Corp Hgb Conc. 34.5 g/dL (33.0-37.0); Mean Corpuscular Hgb 29.6 pg (27.0-31.0); Mean Corpuscular Volume 85.9 fL (80.0-94.0); Mean Platelet Volume 12.6 fL (7.4-10.4); Platelet Count 212 10^3/uL (130-400); Red Blood Cell Count 3.98 10^6/uL (4.70-6.10); Red Cell Dist. Width 12.5 % (11.5-14.5)
[2024-10-10 04:55] LABS: Blood Urea Nitrogen 20 mg/dl (9-20); Calcium 9.3 mg/dl (8.4-10.2); Carbon Dioxide 27 mmol/L (22-30); Chloride 112 mmol/L (98-107); Estimated Creatinine Clearance 88 ml/min; Glucose 169 mg/dl (70-99); Sodium 144 mmol/L (135-145); eGFR > 60.00
[2024-10-10 07:00] VITALS: BP 161/64
[2024-10-10 08:04] LABS: Glucose - Point of Care 165 mg/dl (70-99)
--- NOTE | 2024-10-10 08:50 | W.PN.CD ---
Today's Communication / Plan
-
No plans for pacemaker
I do not feel he needs more in hospital telemetry
Follow up with Dr. Miguel routinely
I will add HCTZ 25 daily and with plans for a BMP in 2, 4, 12 weeks.
MRA may be tolerated with close followup once on HCTZ in 4-6 weeks If BP still elevated then add MRA and watch K+ carefully
Should see PCP after discharge from hosp/rehab. BP meds should not be advanced more often than every 3-6 weeks unless severe HTN with end organ damage present
Impression / Plan
-
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 Montalvo, discharged to [facility] on 10/06 and readmitted for bradycardia.
Sinus bradycardia
-Longstanding. Asymptomatic. Recent TSH normal.
-Pacemaker indicated if symptoms from SB develop => no symptoms yet
HTN, severe on admit, now improving, still above goal, but meds just adjusted
- Avoid meds that can produce bradycardia
- No MRA given hyperkalemia.
- If thiazide diuretic added then perhaps MRA would be tolerated with close followup
- I will add HCTZ 25 daily and then with BMP in 2, 4, 12 weeks. If BP still elevated then add MRA and watch K+ carefully
CVA s/p left CEA 10/03/2024 with return to OR with thrombectomy and revision of patch angioplasty => ASA/plavix/BP control/lipid control
CAD, stable, on aggressive secondary prevention
Mixed hyperlipidemia, goal LDL less than 55
Subjective: No syncope or presyncope
Tele => SB at rest to 80s when awake and more active
Physical Exam
Vital Signs/Labs
Vital Signs
Temp Pulse Resp BP Pulse Ox
98.3 F 52 20 161/64 99
10/10/24 07:00 10/10/24 07:00 10/10/24 07:00 10/10/24 07:00 10/10/24 07:00
10/09/24 10/10/24 10/11/24
06:59 06:59 06:59
Actual Weight 95.5 kg
10/10/24 03:43
10/10/24 03:43
Physical Exam
Constitutional: No acute distress
EENT: Anicteric
Cardiovascular: Rhythm & rate is regular and Pedal edema is absent
Respiratory: Respiratory effort normal and Lungs clear to auscul.
GI: Soft and Distention absent
Neuro/Psych: Alert
Data Reviewed
-
Date of Service: October 10, 2024
[2024-10-10] MEDS: IMDUR (EXTENDED RELEASE) 30 MG PO (08:54)
[2024-10-10] MEDS: PLAVIX 75 MG PO (08:54)
[2024-10-10] MEDS: ZESTRIL 40 MG PO (08:54)
[2024-10-10] MEDS: LOW STRENGTH ASPIRIN 81 MG PO (08:55)
[2024-10-10] MEDS: NOVOLOG FLEXPEN-LOW RESISTANCE 1 UNITS SC ×2 (08:55→17:40)
[2024-10-10] MEDS: NOVOLOG FLEXPEN 4 UNITS SC ×3 (08:55→17:39)
[2024-10-10] MEDS: LANTUS 0.18 UNITS SC (08:55)
[2024-10-10] MEDS: ORETIC 25 MG PO (09:22)
--- NOTE | 2024-10-10 10:45 | PTCARENOTE ---
received patient this am, patient is frustrated because he is going from hospital to rehab to hospital. sat with patient and listened to him and offered emotioanl support. monitor shows NSR, VSS. left neck incision D/I. patient c/o constipation,
miralax given as ordered.
[2024-10-10] MEDS: MIRALAX 17 GRAMS PO (10:54)
[2024-10-10 11:12] VITALS: BP 99/61
[2024-10-10 12:12] LABS: Glucose - Point of Care 239 mg/dl (70-99)
[2024-10-10] MEDS: NOVOLOG FLEXPEN-LOW RESISTANCE 2 UNITS SC (12:50)
--- NOTE | 2024-10-10 14:33 | W.PN.HOSP.TC ---
Today's Communication/Plan
-
Assessment / Plan
Assessment / Plan
NAD
Scleral Anicteric
MMM
No JVD, left carotid incision line appears well-approximated without drainage or erythema
Bradycardic
RRR, S1/S2
Soft, NT, ND, BS+
Warm, Dry
AAOx3
Calm
Chronic bradycardia, TSH normal, avoid AV chaparrita blocking agents, per cardiology no indication for PPM, no indication for security monitor
Hypertension continue antihypertensive. Cardiology initiated HCTZ 25 mg daily with plans to repeat BMP in 05/31/11 weeks. May require MRA and close follow-up once on HCTZ in 4 to 6 weeks
CVA s/p left CEA, continue aspirin Plavix statin at BP control
Diabetes Accu-Chek sliding scales goal blood glucose 140-180 carb controlled diet
PT/OT consulted
Anticipated Discharge: Within 24 hours
Subjective/Interval History
-
Date of Service: October 10, 2024
Seen and examined. No new complaints. No acute overnight events.
Objective Data
-
Labs:
Laboratory Results
10/10/24
03:43
WBC 8.0
Hgb 11.8 L
Hct 34.2 L
Plt Count 212
Sodium 144
Potassium 4.0
Chloride 112 H
Carbon Dioxide 27
BUN 20
Creatinine 0.8
Glucose 169 H
Calcium 9.3
Vital Signs:
Vital Signs
Temp Pulse Resp BP Pulse Ox
97.9 F 51 20 161/74 99
10/10/24 11:12 10/10/24 09:22 10/10/24 11:12 10/10/24 09:22 10/10/24 11:12
I&O
10/09/24 10/10/24 10/11/24
06:59 06:59 06:59
Intake Total 480 / 480
Balance 480 / 480
--- NOTE | 2024-10-10 14:34 | CM ---
Reviewed chart. Telephone call to [facility]. Liaison to review possible return [facility] at [place]. He will need Physical and occupational therapy to see if he still qualifies for Acute Rehab. at [facility] [place]. Met with Mr. Weber
to review discharge plans. Prior to his [facility] resides alone in a six floor apartment at [facility]. He states he uses the elevator to get to his apartment. Prior to his CVA he was independent with ambulation and adls. He states
he does have any DME in the home. He states he has prescription plan. We reviewed Observation status and letter signed and placed in the medical record. We also review Living will and Health Care POA. Gave him the form to review. Will need to see
if he will need an authorization to return to [facility]. at [place]. Will need to see his current functional level to see if he will have any skilled care needs. The discharge plan is to return to [facility]. at [facility] if approved
for admission and bed available when medically stable.
--- NOTE | 2024-10-10 15:56 | PTCARENOTE ---
Addendum entered by Heather Garces RN 10/10/24 16:02:
informed patient that my supervisor sanding told me that the patient or his family member needs to follow up with [facility] management. patient stated, ' I wrapped the wallet up in a paper towel and set it on the tray table.' I called to [facility] and told them that,
no wallet found.
Original Note:
patient wanted his belongings from [facility]. belongings were brought down, patient is unable to find his wallet. [facility]. contacted my nurse manager completions Tasia Ag.
[2024-10-10 15:58] VITALS: BP 133/57
[2024-10-10 17:02] LABS: Glucose - Point of Care 177 mg/dl (70-99)
[2024-10-10] MEDS: PROCARDIA XL (EXTENDED RELEASE) 90 MG PO (17:40)
[2024-10-10] MEDS: CRESTOR 40 MG PO (17:41)
[2024-10-10] MEDS: LOVENOX 40 MG SC (17:41)
[2024-10-10 18:36] VITALS: BP 122/64
[2024-10-10] MEDS: ZETIA 10 MG PO (22:12)
[2024-10-10 22:14] VITALS: BP 136/65
[2024-10-10 22:18] LABS: Glucose - Point of Care 222 mg/dl (70-99)
--- NOTE | 2024-10-10 23:40 | PTCARENOTE ---
Pt rec'd at change of shift awake,alert no c/o pain. no bm yet despite Miralax and Senokot given on earlier shift. + bs x 4
Good strength with right hand grasp however pt reports a little numbness in fingers; unchanged from previous. Left neck inc dylon with surgical glue present. ambulating safely in room.
[2024-10-11] VITALS (8 sets, daily range): BP systolic 116–167; BP diastolic 54–73; PULSE 54; O2SAT 99
[2024-10-11 07:40] LABS: Glucose - Point of Care 166 mg/dl (70-99)
[2024-10-11] MEDS: NOVOLOG FLEXPEN-LOW RESISTANCE 1 UNITS SC ×2 (09:15→12:05)
[2024-10-11] MEDS: NOVOLOG FLEXPEN 4 UNITS SC ×2 (09:16→12:04)
[2024-10-11] MEDS: ZESTRIL 40 MG PO (09:17)
[2024-10-11] MEDS: PLAVIX 75 MG PO (09:17)
[2024-10-11] MEDS: LOW STRENGTH ASPIRIN 81 MG PO (09:17)
[2024-10-11] MEDS: ORETIC 25 MG PO (09:17)
[2024-10-11] MEDS: LANTUS 0.18 UNITS SC (09:18)
[2024-10-11] MEDS: IMDUR (EXTENDED RELEASE) 30 MG PO (09:18)
--- NOTE | 2024-10-11 10:15 | CON.MR ---
Consultation
Consultation Request
Date/Time Consultation Performed: 10/11/24 10:20 AM
Requesting Provider: Dr. Olvera
Performing Provider: Other (Dr. Rowdy Meza)
Reason for Consultation: return to acute rehab
Medical History
-
Chief Complaint: right sided weakness
History of Present Illness:
74-year-old male with with history of coronary artery disease with stents, hypertension, hyperlipidemia, IDDM, and carotid artery stenosis admitted 10/02/24 with complaints of numbness and tingling sensation in the bilateral arms and legs, but
intermittent, but also started getting some balance issues. Initial workup with CT scan was concerning for areas of CVA and noted with L ICA stenosis. Went for L CEA 10/03/2024 and post operatively with onset of right arm weakness with hemineglect
and confusion prompting stroke alert and CT angio with filling defect in the distal left internal carotid artery beyond the end of the patch concerning for thrombus and patient was taken back emergently to the OR, he underwent thrombectomy of left
internal carotid artery with revision of patch angioplasty and thrombectomy of common carotid artery. Patient post-op was placed on aspirin and Plavix.
Subsequent hospital course noted with some uncontrolled HTN, followed by cardiology and lisinopril, nifedipine was increased. Hematology evaluation for hypercoagulable state initiated but recommended DAPT. JOSE ALFREDO did improve over time and now better.
Some mild leukocytosis also post-op but resolving. Has been afebrile. Constipation improved after laxatives.
He was admitted to [facility]. But over weekend was found to have bradycardia, HR in the 40s. Though he is asymptomatic, as a precaution he was sent to the ED for telemetry and cardiology evaluation.
Cardiology assessed and recommendations are as follows:
'Sinus bradycardia
-Longstanding. Asymptomatic. Recent TSH normal.
-Pacemaker indicated if symptoms from SB develop => no symptoms yet
HTN, severe on admit, now improving, still above goal, but meds just adjusted
- Avoid meds that can produce bradycardia
- No MRA given hyperkalemia.
- If thiazide diuretic added then perhaps MRA would be tolerated with close followup
- I will add HCTZ 25 daily and then with BMP in 2, 4, 12 weeks. If BP still elevated then add MRA and watch K+ carefully
CVA s/p left CEA 10/03/2024 with return to OR with thrombectomy and revision of patch angioplasty => ASA/plavix/BP control/lipid control
CAD, stable, on aggressive secondary prevention
Mixed hyperlipidemia, goal LDL less than 55'
Denies any pain, but feels the right arm 'is weird' but denies any numbness or paresthesias. Seems frustrated with the continued weakness in the right hand and arm. Denies any chest pain or SOB, no dizziness or lightheadedness. No GI complaints
today. He states he has had a low heart rate his whole life.
Past Medical History
Past Medical History: Arrhythmias (Bradycardia at baseline), CVA, HTN, Hypercholesterolemia and IDDM
Procedure History:
Cataract surgery
Family History
Family History: Reviewed & Not Pertinent
Social History
Functional Level Premorbidity:
Independent for all activities.
Current Funct Level: Ambulation, Transfer, UE/LE Dressing:
min A
Tobacco: Non-Smoker
Alcohol: None
Drug: None
Personal: Single
Living: Alone
Is 24 hour care available: No
Number of Floors: 1
# Steps to Enter: lives in apt with elevator access
Potential First Floor Set Up: Yes
Driving: Yes
Employment: Retired
Allergies / Home Medications
Allergy/AdvReac Type Severity Reaction Status Date / Time
No Known Allergies Allergy Verified 10/09/24 09:11
�Medication �Instructions �Recorded �Confirmed �Last Taken �Type
semaglutide 0.25 mg or 0.5 mg (2 0.5 mg SC QWEEK Diabetes 10/03/24 10/09/24 Unknown History
mg/1.5 mL) subcutaneous pen
injector (Ozempic)
acetaminophen 325 mg tablet 650 mg (2 x 325 mg) PO Q4HPRN PRN 10/06/24 10/09/24 Unknown Rx
mild pain or temp >/= 100.4 F #14
tabs
aspirin 81 mg chewable tablet 81 mg PO DAILY #30 tabs 10/06/24 10/09/24 Unknown Rx
clopidogrel 75 mg tablet (Plavix) 75 mg PO DAILY #21 tabs 10/06/24 10/09/24 Unknown Rx
ezetimibe 10 mg tablet 10 mg PO HS #30 tabs 10/06/24 10/09/24 Unknown Rx
insulin glargine 100 unit/mL (3 18 unit (0.18 mL) SC Daily 10/06/24 10/09/24 Unknown Rx
mL) subcutaneous pen (Lantus Diabetes #0 mL
Solostar U-100 Insulin)
lisinopril 20 mg tablet 40 mg (2 x 20 mg) PO DAILY #30 tabs 10/06/24 10/09/24 Unknown Rx
rosuvastatin 40 mg tablet 40 mg PO QPM #30 tabs 10/06/24 10/09/24 Unknown Rx
aluminum-mag hydroxide-simethicone 30 ml PO QIDPRN PRN indigestion 10/09/24 10/09/24 Unknown History
200 mg-200 mg-20 mg/5 mL oral susp
heparin (porcine) 5,000 unit/mL (1 5,000 unit SC Q8H Blood Clot 10/09/24 10/09/24 Unknown History
mL) injection cartridge Prevention/Tx
insulin aspart U-100 100 unit/mL 4 unit SC AC Diabetes 10/09/24 10/09/24 Unknown History
(3 mL) subcutaneous pen
melatonin 3 mg tablet 3 mg PO HS PRN insomnia 10/09/24 10/09/24 Unknown History
nifedipine 60 mg tablet,extended 60 mg PO QPM Blood Pressure 10/09/24 10/09/24 Unknown History
release
polyethylene glycol 3350 17 gram 17 g PO DAILY Gastrointestinal 10/10/24 10/09/24 Unknown History
oral powder packet Issue
Review Of Systems
-
History Source: Patient
Constitutional: Reports No Symptoms
Eye: Reports No Symptoms
EENT: Reports No Symptoms
Respiratory: Reports No Symptoms
Cardiac: Reports No Symptoms
Abdomen/GI: Reports Constipated
: Reports No Symptoms
Musculoskeletal: Reports No Symptoms
Integumentary: Reports No Symptoms
Neurological: Reports Weakness and Numbness
Psych: Reports No Symptoms
Endocrine: Reports No Symptoms
Hematologic/Lymphatic: Reports No Symptoms
Immunology: Reports No Symptoms
Physical Exam
Active Medications
Generic Name Dose Route Start Last Admin
Trade Name Freq PRN Reason Stop Dose Admin
Acetaminophen 650 mg 10/09/24 16:26
Acetaminophen 325 Mg Tablet PO 11/06/24 16:25
Q4HPRN PRN
mild pain/IRIZARRY/temp> 100.4F
Aspirin 81 mg 10/10/24 08:00 10/11/24 09:17
Aspirin 81 Mg Chewable Tablet PO 11/07/24 07:59 81 mg
DAILY NEFTALI Administration
Bisacodyl 10 mg 10/09/24 16:26
Bisacodyl 10 Mg Rectal Suppository RECTAL 11/06/24 16:25
[id number] PRN
constipation
Clopidogrel Bisulfate 75 mg 10/10/24 08:00 10/11/24 09:17
Clopidogrel 75 Mg Tablet PO 11/07/24 07:59 75 mg
DAILY NEFTALI Administration
Dextrose 12.5 grams 10/09/24 16:26
Dextrose 50% (0.5 Grams/Ml) 50 Ml Syringe IV 11/06/24 16:25
[id number] PRN
hypoglycemia
Protocol
Ezetimibe 10 mg 10/09/24 22:00 10/10/24 22:12
Ezetimibe (Zetia) 10 Mg Tablet PO 11/06/24 21:59 10 mg
HS NEFTALI Administration
Enoxaparin Sodium 40 mg 10/09/24 18:00 10/10/24 17:41
Enoxaparin Sodium 40 Mg/0.4 Ml Syringe SC 11/06/24 17:59 40 mg
QPM NEFTALI Administration
Glucagon 1 mg 10/09/24 16:26
Glucagon 1 Mg Vial IM 11/06/24 16:25
PRN PRN
hypoglycemia
Protocol
Hydralazine HCl 5 mg 10/09/24 16:26 10/09/24 17:00
Hydralazine 20 Mg/Ml Vial IV 11/06/24 16:25 5 mg
Q6HPRN PRN Administration
SBP>185
Hydrochlorothiazide 25 mg 10/10/24 10:00 10/11/24 09:17
Hydrochlorothiazide 25 Mg Tablet PO 11/07/24 09:59 25 mg
DAILY NEFTALI Administration
Insulin Glargine 18 units/ 0.18 mls @ 0 mls/hr 10/10/24 08:00 10/11/24 09:18
Device SC 11/07/24 07:59 0.18 mls
DAILY NEFTALI Administration
As Directed
Insulin Aspart 0 units 10/09/24 16:30 10/11/24 09:15
Insulin Aspart Low Resistance 300 Units/3 Ml Pen.Injctr SC 11/06/24 16:29 1 units
AC NEFTALI Administration
Protocol
Insulin Aspart 4 units 10/09/24 20:46 10/11/24 09:16
Insulin Aspart (Novolog) 100 Units/Ml 3 Ml Flexpen SC 11/06/24 16:25 4 units
AC NEFTALI Administration
Isosorbide Mononitrate 30 mg 10/10/24 08:00 10/11/24 09:18
Isosorbide Mononitrate 30 Mg Extended Release Tablet PO 11/07/24 07:59 30 mg
DAILY NEFTALI Administration
Lisinopril 40 mg 10/10/24 08:00 10/11/24 09:17
Lisinopril 20 Mg Tablet PO 11/07/24 07:59 40 mg
DAILY NEFTALI Administration
Nifedipine 90 mg 10/09/24 18:00 10/10/24 17:40
Nifedipine 30 Mg Extended Release Tablet PO 11/06/24 17:59 90 mg
QPM NEFTALI Administration
Ondansetron HCl 4 mg 10/09/24 16:26
Ondansetron 4 Mg/2 Ml Vial IV 11/06/24 16:25
Q8HPRN PRN
nausea and vomiting
Polyethylene Glycol 17 grams 10/09/24 16:26 10/10/24 10:54
Polyethylene Glycol Powder 17 Grams Packet PO 11/06/24 16:25 17 grams
DAILYPRN PRN Administration
constipation
Rosuvastatin Calcium 40 mg 10/09/24 18:00 10/10/24 17:41
Rosuvastatin (Crestor) 40 Mg Tablet PO 11/06/24 17:59 40 mg
QPM NEFTALI Administration
Senna/Docusate Sodium 1 tablet 10/09/24 16:26 10/09/24 17:00
Docusate W/Senna (Gila-Colace) Tablet PO 11/06/24 16:25 1 tablet
BIDPRN PRN Administration
constipation
Vital Signs
Temp Pulse Resp BP Pulse Ox
97.8 F 59 18 167/60 96
10/11/24 07:40 10/11/24 09:17 10/11/24 07:40 10/11/24 09:17 10/11/24 08:30
Height 5 ft 11 in
Actual Weight 95.5 kg
Body Mass Index (BMI) 29.4
Physical Exam
General Appearance / Observation: Well developed, well nourished individual with no apparent distress
Pain/Comfort Assessment: Denies
Mood/Affect: Appropriate
Eyes: Conjunctiva/Lids: normal, Pupils: pupils equal round and reactive to light and Accommodation. No nystagmus.
Ears/Nose/Throat: Oral Mucosa: moist, Throat: clear, Lips/Teeth/Gums: normal
Neck: Normal Thyroid, Nonpalpable, normal, no muscle spasm or tenderness
Cardiovascular: Heart: regular, no rubs, murmurs, gallops
Breast: Deferred
Pulses: dorsalis pedis 2+ bilaterally
Respiratory: Respiratory Effort/Chest Expansion: normal, Auscultation: clear to auscultation bilaterally
Gastrointestinal: abdomen not tender, no distention, normal abdominal bowel sounds
Genitourinary: No armijo
Rectal exam: deferred
Extremities:
Edema: None
Cyanosis: None
Trophic changes: None
Neurology Exam:
Orientation: Alert, Oriented to self, time, place
Memory: Intact immediately and at 3 minutes
Higher Cortical Function
Repetition: Intact
Comprehension: Intact
Cranial Nerves
CN II: Pupillary Light Reflex: Intact, Visual Field: Intact
CN III, IV, : Extraocular Muscles: Intact
CN V: Facial Sensation at Forehead: Intact, Maxilla: Intact, Mandible: Intact
CN VII: Facial Movement: Symmetric
CN VIII: Hearing: Normal
CN IX/X: Speech & Swallow: Normal, Position of Uvula: Midline
CN XI: Shoulder Shrug: Symmetric
CN XII: Tongue Protrusion: Midline
Sensory:
Light Touch: Intact in bilateral upper and lower extremities - denies any asymmetry in the hands or digits
Reflexes:
Rush: Negative bilaterally
No ankle clonus
Cerebellar: Dysmetria/Ataxia: Apraxic and slight ataxia in the right UE and hand
Musculoskeletal:
Motor: (Manual muscle scale 0-5)
MuscleSA EF WE EE FF FA HF KE DF EHL PF
Right4+ 4 4 4+ 3 3 4+ 5 5 5 5
Left5 5 5 5 5 5 5 5 5 5 5
Tone: Normal in all extremities
Range of Motion: Passively within normal limits in all extremities
Lab Results
10/10/24 03:43
10/10/24 03:43
WBC 8.0 10^3/uL (4.8-10.8) 10/10/24 03:43
Hgb 11.8 g/dL (13.0-18.0) L 10/10/24 03:43
Hct 34.2 % (39.0-52.0) L 10/10/24 03:43
MCV 85.9 fL (80.0-94.0) 10/10/24 03:43
Plt Count 212 10^3/uL (130-400) 10/10/24 03:43
Sodium 144 mmol/L (135-145) 10/10/24 03:43
Potassium 4.0 mmol/L (3.5-5.1) 10/10/24 03:43
Chloride 112 mmol/L (98-107) H 10/10/24 03:43
Carbon Dioxide 27 mmol/L (22-30) 10/10/24 03:43
BUN 20 mg/dl (9-20) 10/10/24 03:43
Creatinine 0.8 mg/dL (0.7-1.3) 10/10/24 03:43
eGFR > 60.00 10/10/24 03:43
Glucose 169 mg/dl (70-99) H 10/10/24 03:43
Calcium 9.3 mg/dl (8.4-10.2) 10/10/24 03:43
Total Bilirubin 0.7 mg/dl (0.2-1.3) 10/09/24 08:05
AST 26 U/L (17-59) 10/09/24 08:05
ALT 30 U/L (0-50) 10/09/24 08:05
Alkaline Phosphatase 72 U/L (38-126) 10/09/24 08:05
Total Protein 6.5 g/dl (6.3-8.2) 10/09/24 08:05
Albumin 3.8 g/dl (3.5-5.0) 10/09/24 08:05
Diagnostic Results
As per HPI.
Comorbidities / Impairment Group
Comorbidities:
Impairment Group: Stroke, Left brain, right sided weakness
Assessment / Plan
Assessment
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 Miguel, his primary [employer]) with coronary artery disease status-post SERENA to OM2/OM 3 (2012), hypertension, hyperlipidemia, IDDM, and carotid artery stenosis admitted recently admitted with CVA, s/p CEA 10/03/[address] Montalvo, discharged to [facility] on 10/06 and readmitted for bradycardia.
Plan
PM&R: Once medically stable, he can be readmitted to acute inpatient rehab with PT/OT/SW/manager [facility]/Neuropsych to increase independence with ADLs, improve balance, coordination, endurance, strength, mobility, community reintegration, decreased burden
of care on others and family education.
CVA: Secondary prophylaxis with DAPT, statin, and blood pressure control (SBP less than 180 and diastolic less than 100 to participate with therapy for ischemic stroke). Continue to monitor neurologic status.
Right hemiparesis: High risk for falls and sliding out of chair/bed. Safety reinforced.
- Avoid using affected arm to help lift or pull patient as this will cause trauma to the shoulder.
Right Neglect: Seems mild but maybe some more R inattention. Makes patient at increased risk for falls. Will need therapy to work on scanning of environment for safe navigation.
HTN: Was uncontrolled during hospital course. Cardiology input appreciated. HCTZ added. Consideration for MRA.
HLD: Stroke prophylaxis with rosuvastatin and Zetia.
Bradycardia: Patient reports he has always had a low HR. It does come up with physical activity. He is otherwise asymptomatic. We can monitor for now as cardiology does not recommend any interventions.
Coronary artery disease : Not on beta-jerzy - has bradycardia at baseline
L CEA: DAPT (aspirin and plavix), statin. Monitor incision, pain control.
DM II: Accu-Cheks, On ozempic.
- At home was on Lantus 40-50 hs at home with NovoLog 15 tidac
Anemia: Continue to monitor.
Psych: Psychology consult. Monitor mood, adjust medications as needed.
Skin: monitor for pressure sores/rashes/lesions.
JOSE ALFREDO: Resolved - continue to monitor labs
FEN: Regular diet.
Pain: acetaminophen as needed.
Bowel: Colace and Senna, PRN bisacodyl.
DVT Prophylaxis: Heparin Sq
Pulmonary: Incentive spirometry
Safety: Continue to reinforce assistance with all transfers.
Code Status: Full code
Dispo (date/plan/equipment needs): Return to acute inpatient rehab at [facility] once medically cleared
Summary
-
Thank you for allowing me to care for your patient. Please contact me with any questions or concerns.
Data Reviewed
-
Total face to face time spent with patient (in minutes): 20
>50% of time spent counseling/coordinating care: Yes
Comments
-
This note was dictated using a voice recognition system. Please excuse any typographical errors from screen printing loader unloader. If you believe there are any discrepancies, please notify our office.
[2024-10-11 11:59] LABS: Glucose - Point of Care 193 mg/dl (70-99)
--- NOTE | 2024-10-11 12:42 | PTCARENOTE ---
received patient this am in bed, awake. monitor shows SB, VSS. patient still has difficulty with right hand, thumb and forefinger for picking up things, right leg weak , able to ambulate with assist of 1. L CEA site is glued, well approximated.
strongly encouraged patient to use call schumacher for assistance for walking, patient verbalized understanding. patient may go to [facility] today.
--- NOTE | 2024-10-11 14:42 | PTCARENOTE ---
Addendum entered by Heather Garces RN 10/11/24 15:03:
patient found his wallet in his shoe.
Original Note:
namita called for report, report given. INT D/C'd, telemetry d/C'd, personal belongings packed and sent with patient. patient is still missing his wallet from [facility], that was relayed in report. papers were faxed to [facility] by unit control clerk, Stormy. D/C to
namita via accompanied by vol. services.
--- NOTE | 2024-10-11 14:47 | CM ---
Reviewed chart. Telephone call to [facility] to confirm bed available. [facility] at [place] will have a bed today. Telephone call to [facility] to pre-cert for Acute Rehab. Approved from 10/11/24 to 10/17/24 with review due
on 10/17/24. The Auth number is [id number]. Updated [facility] Liaison with auth number. Updated Ashleighrafy and his nurse. Medical work-up in progress. The discharge plan is to return to [facility] when medically
stable.
== END 2024-10-11 16:19 ==
LOC: IVU 12:03
PROVIDERS: Emergency Medicine; ADMITTING PHYSICIAN Internal Medicine; ATTENDING PHYSICIAN Hospitalist; CONSULT PHYSICIAN Student in an Organized Health Care Education/Training Program; EMERGENCY PHYSICIAN Emergency Medicine; FAMILY PHYSICIAN Internal Medicine; OTHER PHYSICIAN Physical Medicine & Rehabilitation
DX: I16.0 Hypertensive urgency (principal); R00.1 Bradycardia, unspecified; I11.9 Hypertensive heart disease without heart failure; E11.59 Type 2 diabetes mellitus with other circulatory complications; I25.10 Atherosclerotic heart disease of native coronary artery without angina pectoris; K21.9 Gastro-esophageal reflux disease without esophagitis; R00.0 Tachycardia, unspecified; E78.5 Hyperlipidemia, unspecified; E87.5 Hyperkalemia; N17.9 Acute kidney failure, unspecified; K59.00 Constipation, unspecified; E78.2 Mixed hyperlipidemia; D64.9 Anemia, unspecified; Z79.4 Long term (current) use of insulin; Z79.82 Long term (current) use of aspirin; Z79.02 Long term (current) use of antithrombotics/antiplatelets; Z87.891 Personal history of nicotine dependence; Z79.85 Long-term (current) use of injectable non-insulin antidiabetic drugs; Z79.899 Other long term (current) drug therapy; Z95.5 Presence of coronary angioplasty implant and graft; Z86.73 Personal history of transient ischemic attack (TIA), and cerebral infarction without residual deficits; Z60.2 Problems related to living alone
CPT/HCPCS: 80048; 80053; 82962; 85025; 85027; 87070; 93005; 96374; 97162; 97166; 99285; G0378